=== PATIENT | female | born 1975 ===

== ENCOUNTER 2022-08-20 09:58 | Emergency (ER) | payer MEDICAID, SELFPAY ==
[2022-08-20 10:02] VITALS: BP 126/55; PULSE 75; RESP 18; TEMP 36.7; O2SAT 99; BMI 38.5
--- NOTE | 2022-08-20 10:24 | ED.GENADULT ---
HPI - General Adult General Chief complaint: General Medical Stated complaint: r elbow and l leg pain no inj Time Seen by Provider: 08/20/22 10:23 Source: patient and bilingual interpreter Mode of arrival: ambulatory Limitations: language barrier History of Present Illness HPI narrative: Patient is a 46 year old assigned female at with no reported medical history presenting to the emergency department today with right elbow and left knee pain. Patient states that her right elbow hurts when she has it flexed but when she stretches it out, the pain relieves itself. Patient states that her left knee feels fine when she wakes up but hurts as the day goes on. Patient states that the pain has been persistent this last week since she was in a processional. Patient denies any dizziness, lightheadedness, abdominal pain, nausea, vomiting, fever, chills, blurry vision, double vision, loss of vision, chest pain, difficulty breathing, shortness of breath, back pain, night sweats, pain with urination, increased urinary frequency, increased urinary urgency, blood in her urine or stool, syncope or a near syncopal episode, recent trauma or falls, bowel incontinence, bladder incontinence, bowel retention, bladder retention, or any other complaints at this time. Onset (ago): week(s) (1) Location: left (knee) and right (elbow) Radiation: non-radiation Severity: mild Severity scale (1-10): 3 Exacerbating factors: none Associated symptoms: denies other symptoms Treatments prior to arrival: none Related Data Previous Rx's Medication Instructions Recorded prednisone 20 mg tablet 20 mg PO DAILY 7 days #7 tabs 08/20/22 Allergies Allergy/AdvReac Type Severity Reaction Status Date / Time Penicillins [PCN] AdvReac Rash Verified 08/20/22 10:04 Review of Systems Constitutional: Constitutional: Reports no additional constitutional complaints, Denies chills, Denies fever(s) and Denies night sweats Eyes: Eyes: Reports no additional eye complaints, Denies blurry vision, Denies change in vision, Denies diplopia, Denies eye discharge, Denies loss of vision and Denies eye pain ENT: Denies dizziness Cardiovascular: Cardiovascular: Reports no additional cardiovascular complaints, Denies chest pain, Denies lightheadedness, Denies Loss of Consciousness and Denies dyspnea Respiratory: Respiratory: Reports no additional respiratory complaints and Denies dyspnea Gastrointestinal: Gastrointestinal: Reports no additional gastrointestinal complaints, Denies abdominal pain, Denies melena, Denies hematochezia, Denies change in bowel habits and Denies change in stool character Genitourinary: Genitourinary: Denies hematuria, Denies urinary frequency, Denies dysuria, Denies urinary incontinence, Denies urinary hesitancy and Denies urinary urgency Musculoskeletal: Musculoskeletal: Reports no additional musculoskeletal complaints, Denies numbness and Denies tingling Comments: right elbow pain, left knee pain Neurologic: Denies dizziness, Denies loss of vision, Denies numbness and Denies tingling Psychiatric: Psychiatric: Reports no additional psychiatric complaints Endocrine: Endocrine: Reports no additional endocrine complaints Hematologic/Lymphatic: Hematologic/Lymphatic: Reports no additional hematologic/lymphatic complaints Allergic/Immunologic: Allergic/Immunologic: Reports no additional allergic/immunologic complaints PMFSH Past Medical History Attestation statement: The following information was validated with the patient. Source: old records reviewed and nursing notes reviewed Social History Social History Advance Directives: No Advance Directives Information Provided: No Physical Exam ED Vital Signs: Vital Signs - 24 hr 08/20/22 10:02 Temperature 98.0 F Pulse Rate 75 Respiratory Rate 18 Blood Pressure 126/55 L Pulse Oximetry 99 Oxygen Delivery Method Room Air BMI result Body Mass Index 38.5 Const General: cooperative, no acute distress, alert and awake Nutritional Appearance: well nourished Orientation/consciousness: patient oriented x3 Limitations: no limitations HENMT Head: Yes normal to inspection and Yes atraumatic Ears: hearing grossly normal bilaterally and external ears normal General nose exam: Normal external nose present, no nasal discharge noted and no epistaxis Face and sinus: Yes normal facial exam, No abrasion and No laceration Mouth: Normal oral and palatal mucosa present, no drooling and no muffled voice Eyes General: appearance normal, both eyes and all related structures Periorbital: periorbital findings normal Eyelids: Yes eyelids normal Conjunctivae: conjunctivae normal Pupils: Equal, round and reactive pupils present EOM: EOMs intact bilaterally Neck Neck: Yes normal visual inspection, Yes full ROM and Yes no lymphadenopathy Chest Chest palpation & inspection: normal inspection of the chest Resp Effort & Inspection: normal respiratory effort and able to speak in complete sentences GI Inspection: Yes normal to inspection Neuro General: patient oriented x3 and moves all extremities Cranial nerves: Yes Equal, round and reactive pupils present Cognition (Neuro): normal cognition Motor exam (neuro): 5/5 motor strength present throughout Sensory Exam: Normal double simultaneous stimulation for sensation Coordination: [id number] test normal Extrem General: Yes normal to inspection, Yes full ROM and Yes capillary refill normal Psych Appearance: grossly normal Mental Status: mental status grossly normal Affect: normal affect Attitude: cooperative Thought process: Normal thought process present Thought content: Normal thought content present Insight: Good insight present (Psych) Medical Decision Making Medical Decision Making MDM Narrative: Patient is a 46 year old assigned female at with no reported medical history presenting to the emergency department today with right elbow pain and left knee pain. Patient's physical exam was unremarkable. I explained my physical exam findings to the patient. I answered all questions asked by the patient. Patient received IM Toradol and IM Solu-medrol which she stated helped her symptoms significantly. I stressed the importance of the patient taking her medication as prescribed. I stressed the importance of the patient following up with her primary care provider and if pain persists >2 weeks, an orthopedic provider. I stressed the importance of the patient returning to the emergency department immediately if her symptoms were to worsen or if she were to develop any dizziness, shortness of breath, difficulty breathing, chest pain, blurry vision, loss of vision, nausea, vomiting, abdominal pain, fever, chills, back pain, or any other complaints. Patient verbalized agreement and understanding with this treatment plan and discharge. Differential Diagnosis Differential Diagnoses: The differential diagnosis associated with the presentation includes cubital tunnel syndrome, knee arthritis Discharge Plan Discharge Clinical Impression: Cubital tunnel syndrome, Arthritis Patient Disposition: Home, Self-Care Instructions: Osteoarthritis (ED), Cubital Tunnel Syndrome (ED) Additional Instructions: Follow up with your primary care provider and if the pain persists, follow up with an orthopedic provider. Return to the emergency department immediately if your symptoms worsen or if you develop any dizziness, shortness of breath, difficulty breathing, chest pain, blurry vision, loss of vision, nausea, vomiting, abdominal pain, fever, chills, back pain, or any other complaints. Laisha un seguimiento con jang proveedor de atenci?n primaria y, si el dolor persiste, laisha un seguimiento con un proveedor ortop?dico. Regrese al departamento de emergencias de inmediato si azul s?ntomas empeoran o si presenta mareos, falta de aire, dificultad para respirar, dolor de pecho, visi?n borrosa, p?rdida de la visi?n, n?useas, v?mitos, dolor abdominal, fiebre, escalofr?os, dolor de espalda o cualquier otras quejas. Prescriptions: New prednisone 20 mg tablet 20 mg PO DAILY 7 Days Qty: 7 0RF Referrals: [facility] [place] [Provider Group] (Call to establish and follow up with a primary care provider. If you already have a primary care provider, please follow up with them. Llame para establecer y hacer un seguimiento con un proveedor de atenci?n primaria. Si ya tiene un proveedor de atenci?n primaria, laisha un seguimiento con ?l.) [facility] [place] [Provider Group] (Call to establish and follow up with a primary care provider. If you already have a primary care provider, please follow up with them. Llame para establecer y hacer un seguimiento con un proveedor de atenci?n primaria. Si ya tiene un proveedor de atenci?n primaria, laisha un seguimiento con ?l.) [facility] [place] [Provider Group] (Call to establish and follow up with a primary care provider. If you already have a primary care provider, please follow up with them. Llame para establecer y hacer un seguimiento con un proveedor de atenci?n primaria. Si ya tiene un proveedor de atenci?n primaria, laisha un seguimiento con ?l.) [facility] [Provider Group] (If pain persists >2 weeks, call to establish and follow up with an orthopedic provider. Si el dolor persiste por m?s de 2 semanas, llame para establecer y hacer un seguimiento con un proveedor ortop?dico.) Print Language: Mohawk
[2022-08-20] MEDS: Ketorolac Tromethamine 15 MG/ML VIAL IM (11:32)
[2022-08-20] MEDS: methylPREDNISolone Sod Succ 125 MG/2 ML VIAL 60 MG IM (11:33)
== END 2022-08-20 11:45 | disposition home or self-care (01) ==
PROVIDERS: Emergency Provider Emergency Medicine
DX: G56.21 Lesion of ulnar nerve, right upper limb (principal); M19.031 Primary osteoarthritis, right wrist; Z79.899 Other long term (current) drug therapy
CPT/HCPCS: 96372; 99283; 99284; J1885; J2930

== ENCOUNTER 2022-10-12 09:20 | Outpatient (REF) | payer OTHER, SELFPAY ==
--- NOTE | ~2022-10-12 | XR_ITS ---
EXAMINATION: XR KNEE, LEFT CLINICAL INFORMATION: Pain in left knee COMPARISON: None available. TECHNIQUE: Four views of the left knee. FINDINGS: Bones and soft tissues are normal. No fracture or joint effusion. Alignment is anatomic. Joint spaces are well maintained. No abnormal soft tissue calcification. XR/XR knee LT 3V IMPRESSION: Normal left knee.
--- NOTE | ~2022-10-12 | XR_ITS ---
EXAMINATION: XR ELBOW, RIGHT CLINICAL INFORMATION: Pain in the right elbow COMPARISON: None available. TECHNIQUE: AP, lateral, and oblique views of the right elbow. FINDINGS: The bones and soft tissues are normal. No fracture or joint effusion. Alignment is anatomic. Joint spaces are maintained. XR/XR elbow RT min 3V IMPRESSION: Normal right elbow.
[2022-10-12 09:38] LABS: MANUAL DIFF FLAG NO
[2022-10-12 09:50] LABS: Basophils Percent Auto 0.1 % (0-2); Eosinophils Absolute Auto 0.1 X10*3/uL (0.0-0.4); Eosinophils Percent Auto 1.8 % (0-4); Hematocrit 36.8 % (37.0-47.0); Hemoglobin 12.6 g/dl (12.0-16.0); Imm Gran Abs Auto 0.03 X10*3/uL (0.00-0.03); Imm Gran Pct Auto 0.4 % (0.0-0.4); Lymphocytes Absolute Auto 2.5 X10*3/uL (1.2-4.9); Lymphocytes Percent Auto 34.2 % (20-40); Mean Corpuscular HGB Conc 34.2 g/dl (31.0-35.0); Mean Corpuscular Hemoglobin 29.9 pg (27.0-33.0); Mean Corpuscular Volume 87.4 fL (80.0-98.0); Mean Platelet Volume 9.1 fL (9.4-12.3); Monocytes Absolute Auto 0.5 X10*3/uL (0.1-1.2); Monocytes Percent Auto 6.8 % (2-11); Neutrophils Absolute Auto 4.2 x10*3/uL (2.0-8.3); Neutrophils Percent Auto 56.7 % (45-73); Platelet Count 278 X10*3/uL (160-400); Red Blood Count 4.21 X10*6/uL (4.20-5.50); Red Cell Distribution Width 12.2 % (11.0-16.0); White Blood Count 7.3 X10*3/uL (4.8-10.8)
[2022-10-12 10:19] LABS: Alanine Aminotransferase 70 U/L (0-31); Alkaline Phosphatase 58 U/L (39-117); Anion Gap 13 (12-20); Aspartate Amino Transferase 34 U/L (5-31); Bilirubin Total 0.4 mg/dL (0.0-1.0); Blood Urea Nitrogen 11 mg/dL (9-16); Calcium 9.3 mg/dL (8.4-10.2); Carbon Dioxide 25 mmol/L (22-29); Chloride 106 mmol/L (96-108); Cholesterol 214 mg/dL; Estimated Glomerular Filt Rate > 60; Glucose Fasting 97 mg/dL (60-99); HDL Cholesterol 47 mg/dL; LDL Cholesterol Calculated 119 mg/dl; Potassium 4.1 mmol/L (3.3-5.1); Sodium 140 mmol/L (135-145); Triglycerides 240 mg/dL
[2022-10-12 10:49] LABS: Folate 16.1 ng/mL (> or = 4.0); TSH reflex Free T4 2.48 uIU/mL (0.32-4.0); Vitamin B12 547 pg/mL (200-900); Vitamin D 25-OH Total 16.7 ng/mL (>30)
== END 2022-10-12 09:21 | disposition home or self-care (01) ==
LOC: HO.XRAY 09:20
PROVIDERS: PCP Nurse Practitioner Family; Visit Provider Nurse Practitioner Family
DX: M25.562 Pain in left knee (principal); M25.521 Pain in right elbow; Z76.89 Persons encountering health services in other specified circumstances
CPT/HCPCS: 36415; 73080; 73562; 80053; 80061; 82306; 82607; 82746; 84443; 85025

== ENCOUNTER → 2022-11-07 13:26 | Outpatient (BNVA) | payer OTHER, SELFPAY | PROVIDERS: PCP Nurse Practitioner Family; Visit Provider Internal Medicine | DX: R13.10 Dysphagia, unspecified (principal); R79.89 Other specified abnormal findings of blood chemistry | CPT/HCPCS: 99202 ==

== ENCOUNTER 2022-11-08 | Outpatient (REF) | payer OTHER, SELFPAY ==
--- NOTE | ~2022-11-08 | US_ITS ---
EXAMINATION: US ABDOMEN LIMITED CLINICAL INFORMATION: Other specified abnormal findings of blood chemistry. COMPARISON: None available. TECHNIQUE: Real-time imaging of the right upper quadrant abdominal viscera. FINDINGS: PANCREAS: Limited visualization. LIVER: The liver is normal in size. The liver contour is normal. There is diffuse increased liver parenchymal echogenicity, consistent with hepatic steatosis. No definite focal lesion is seen, but evaluation is limited due to poor sound beam penetration through the coarse echogenic liver parenchyma. There is no intrahepatic biliary duct dilatation seen. GALLBLADDER: Surgically absent. COMMON BILE DUCT: Normal in caliber measuring 0.7 cm in diameter. RIGHT KIDNEY: Midpole cyst measures 0.8 x 0.7 x 0.8 cm. No hydronephrosis or renal calculi. The kidney measures 10.9 cm in maximum dimension. FREE FLUID: None. US/US abdomen limited IMPRESSION: Hepatic steatosis. Right renal cyst. No suspicious features.
[2022-11-08 10:14] LABS: Iron 69 mcg/dL (30-160); Percent Iron Saturation 26 % (15-50); Total Iron Binding Capacity 264 mcg/dL (228-428); Unsaturated Iron Binding 195 ug/dL
[2022-11-08 10:20] LABS: Ferritin 113 ng/mL (10-250); TSH reflex Free T4 2.17 uIU/mL (0.32-4.0)
[2022-11-09 04:01] LABS: HBc Num1 0.06 S/CO (0.00-0.79); HBsAGNum1 0.55 S/CO (0.00-0.99); Hepatitis A Antibody IgM 0.17 Index (0-0.79); Hepatitis B Core Antibody Nonreactive (Nonreactive); Hepatitis B Surface Antigen Negative (Negative); ~HepC Num1 0.12 S/CO (0.00-0.79); ~Hepatitis A Antibody IgM Nonreactive (Nonreactive); ~Hepatitis B Surface Antibody NONREACTIVE (Nonreactive); ~Hepatitis C Antibody Nonreactive (Nonreactive)
[2022-11-12 14:58] LABS: Anti Nuclear Antibody Screen NEGATIVE (NEGATIVE)
[2022-11-12 15:04] LABS: Immunoglobulin A 265 mg/dL (47-310); Immunoglobulin G 1133 mg/dL (600-1640)
[2022-11-13 13:59] LABS: Liver Kidney Microsomal Ab <=20.0 U (<=20.0); Smooth Muscle Antibody <20 U (<20)
[2022-11-19 07:48] LABS: Transglutaminase IgA <1.0 U/mL
== END 2022-11-08 00:01 | disposition home or self-care (01) ==
LOC: HO.US
PROVIDERS: Internal Medicine; Visit Provider Nurse Practitioner Family
DX: R79.89 Other specified abnormal findings of blood chemistry (principal)
CPT/HCPCS: 36415; 76705; 82728; 82784; 83540; 84443; 86015; 86038; 86364; 86376; 86704; 86706; 86709; 86803; 87340

== ENCOUNTER 2022-11-09 12:38 | Outpatient (REF) | payer OTHER, SELFPAY ==
--- NOTE | ~2022-11-09 | MM_ITS ---
EXAMINATION: MM SCREENING DIGITAL BREAST TOMOSYNTHESIS, BILATERAL CLINICAL INFORMATION: Screening. Asymptomatic. The lifetime risk of breast cancer based on the Tyrer-Cuzick Model is 34.4%. COMPARISON: Mammography: There are no prior studies available for comparison. TECHNIQUE: Digital breast tomosynthesis is performed in both the craniocaudal and mediolateral oblique views along with computer-aided detection (CAD). Synthesized 2D images are generated from the tomosynthesis. FINDINGS: There are scattered areas of fibroglandular density (ACR BI-RADS breast composition Category b). There are no significant masses, abnormal calcifications, or other abnormalities. MM/MM tomosynthesis screening BI IMPRESSION: No mammographic evidence of malignancy. The lifetime risk of breast cancer based on the Tyrer-Cuzick Model is 34.4%. This places the patient at high risk for developing breast cancer over her lifetime. The patient has not already had been annual breast MRI as an adjunct to annual mammographic screening, then this recommended. ASSESSMENT: BI-RADS BI-RADS 1 - Negative RECOMMENDATION: Routine annual mammography screening. 1 year F/U This patient's information was entered into a reminder system with a target due date for their next mammogram.
== END 2022-11-09 12:39 | disposition home or self-care (01) ==
LOC: HO.MAMMO 12:38
PROVIDERS: PCP Nurse Practitioner Family; Visit Provider Nurse Practitioner Family
DX: Z12.31 Encounter for screening mammogram for malignant neoplasm of breast (principal)
CPT/HCPCS: 77063; 77067

== ENCOUNTER → 2022-11-09 12:45 | Outpatient (BNV) | payer OTHER, SELFPAY | PROVIDERS: PCP Nurse Practitioner Family; Visit Provider Radiology Diagnostic Radiology | DX: Z12.31 Encounter for screening mammogram for malignant neoplasm of breast (principal) | CPT/HCPCS: 77063; 77067 ==

== ENCOUNTER 2022-11-20 08:05 | Outpatient (REF) | payer OTHER, SELFPAY ==
--- NOTE | ~2022-11-20 | XR_ITS ---
EXAMINATION: XR ELBOW, RIGHT CLINICAL INFORMATION: Pain in right elbow COMPARISON: 10/12/2022 TECHNIQUE: AP, lateral, and oblique views of the right elbow. FINDINGS: The bones and soft tissues are normal. No fracture or joint effusion. Alignment is anatomic. Joint spaces are maintained. XR/XR elbow RT 2V IMPRESSION: No displaced fracture.
== END 2022-11-20 08:06 | disposition home or self-care (01) ==
LOC: HO.HOSX 08:05
PROVIDERS: Visit Provider Orthopaedic Surgery
DX: M77.11 Lateral epicondylitis, right elbow (principal); Z79.899 Other long term (current) drug therapy
CPT/HCPCS: 73070; 99202

== ENCOUNTER 2022-11-20 15:04 | Outpatient (AMB) | payer OTHER, SELFPAY ==
--- NOTE | 2022-11-20 15:16 | MHC.OFFVIS ---
Intake Vital Signs 11/20/22 15:17 Height 5 ft 1 in Weight 202 lb BMI 38.2 Intake Visit Reasons: New Pt - Right Elbow Pain Intake Note: The patient presents with complaints of intermittent pain along the lateral aspect of her right elbow and forearm. She states that her symptoms have been present for approximately 1 year. She recently started formal physical therapy. She has tried ibuprofen which gives her minimal relief. She denies any numbness or tingling in her fingers. She recently moved here from [place]. Allergies Penicillins [PCN] Adverse Reaction (Verified 11/20/22 17:03) Rash Medication List - Last Reconciled 11/20/22 by Josue Valderrama MD cholecalciferol (vitamin D3) 50 mcg PO DAILY ibuprofen 600 mg PO Q8H PRN meloxicam 15 mg PO DAILY PRN omeprazole 20 mg PO DAILY peg 3350-electrolytes 236-22.74-6.74 -5.86 gram (Golytely) 240 mL PO Q10M PFSH Surgical History H/O breast surgery History of cholecystectomy Family History Mother Fibromyalgia Hypothyroidism Father Prostate cancer Hypertension Hypothyroidism Social History Housing: House Patient Tobacco Use Status: Never used Tobacco Advance Directives: No Advance Directives Information Provided: No Current occupational status: unemployed Cognitive needs: No Hearing needs: No Vision needs: No Physical Exam Vital Signs: BMI result Body Mass Index 38.2 Const Other: Well-nourished well-developed very friendly female awake alert and oriented x3 in no acute distress Extrem Other: Bilateral upper extremity examination shows good capillary refill, no skin lesions noted, normal sensation light touch Right elbow examination shows full range of motion when compared to her left elbow, no overlying skin lesions, tenderness along her lateral epicondyle, pain with resisted wrist extension Results Reviewed Results Reviewed: X-rays of the patient's right elbow taken today show minimal diffuse degenerative changes, no acute bony abnormalities Assessment & Plan Assessment & Plan (1) Lateral epicondylitis, right elbow: Code(s): M77.11 - Lateral epicondylitis, right elbow Plan: Ms. Vivek Pearce presents with right elbow and forearm pain due to lateral epicondylitis. I had a lengthy discussion with the patient regarding the treatment options. Activity modifications were discussed at length with the patient. She is encouraged to continue with her formal physical therapy. She will also continue using topical creams. I did give her a prescription for meloxicam. She will follow up with me on an as-needed basis should her symptoms not plateau at an unacceptable level over the next few months. Feel free to call me at any time should questions regarding her orthopedic management arise. I spent 22 minutes in reviewing the patient's records and imaging studies, seeing the patient and documenting in the medical record. Orders: Orders XR elbow RT 2V 11/20/22 M25.521 - Pain in right elbow Medications: New meloxicam 15 mg PO DAILY PRN 30 tabs 3RF pain Coding Level of Care Code New Pt Level 2 (63337) Diagnoses Lateral epicondylitis, right elbow M77.11
[2022-11-20 15:17] VITALS: BMI 38.2
== END 2022-11-20 15:54 | disposition home or self-care (01) ==
PROVIDERS: PCP Nurse Practitioner Family; Visit Provider Orthopaedic Surgery
DX: M77.11 Lateral epicondylitis, right elbow (principal)
CPT/HCPCS: 99202

== ENCOUNTER 2022-11-20 16:46 | Emergency (ER) | payer OTHER, SELFPAY ==
--- NOTE | 2022-11-20 17:02 | ED.GENADULT ---
HPI - General Adult General Chief complaint: General Medical Stated complaint: High blood Pressure Related Data Previous Rx's Medication Instructions Recorded cholecalciferol (vitamin D3) 50 50 mcg PO DAILY #90 tabs 10/25/22 mcg (2,000 unit) tablet famotidine 40 mg tablet 40 mg PO BEDTIME #90 tabs 04/09/23 hydrocortisone 2.5 % topical cream 1 appl [place] BID-QID PRN hemorrhoids 04/09/23 with perineal applicator #30 grams (Proctosol HC) pantoprazole 40 mg tablet,delayed 40 mg PO DAILY #90 tabs 04/09/23 release Allergies Allergy/AdvReac Type Severity Reaction Status Date / Time Penicillins [PCN] AdvReac Rash Verified 05/30/23 14:56 PMFSH Past Medical History Medical History PMB (postmenopausal bleeding) Morbid obesity with BMI of 40.0-44.9, adult Encounter to establish care Surgical History H/O breast surgery History of cholecystectomy Family History Family History Mother Fibromyalgia Hypothyroidism Father Prostate cancer Hypertension Hypothyroidism Paternal Grandmother History of breast cancer Social History Social History Housing: House Patient Tobacco Use Status: Never used Tobacco Current occupational status: unemployed Cognitive needs: No Hearing needs: No Vision needs: No Physical Exam ED Vital Signs: BMI result Body Mass Index 36.9 Course Course Course Narrative: This is an RME: Additional HPI, ROS, PE not included below will be deferred to primary provider. Patient is a 47-year-old female with a past medical history of obesity and lateral epicondylitis to the right elbow. Patient presents for a blood pressure check. Patient reports having headache for 2 days. Patient reported that she took her blood pressure at home and her diastolic pressure was in the high 90s so she decided to come in to get checked. Patient is not currently on blood pressure medications however she reports taking 1 of her sister's blood pressure medicine. Patient does not know the name of this medication. patient denies fever, chills, night sweats, nausea, vomiting, vision changes, numbness, tingling, chest pain, shortness of breath. Patient denies any pain. Plan: EKG Discharge Plan Discharge Clinical Impression: Eloped from emergency department Patient Disposition: Elopement Prescriptions: No Action cholecalciferol (vitamin D3) 50 mcg (2,000 unit) tablet 50 mcg PO DAILY Qty: 90 0RF pantoprazole 40 mg tablet,delayed release (DR/EC) 40 mg PO DAILY Qty: 90 2RF Rx Instructions: take one tablet half an hour before breakfast hydrocortisone [Proctosol HC] 2.5 % cream with perineal applicator 1 appl [place] BID-QID PRN (Reason: hemorrhoids) Qty: 30 2RF famotidine 40 mg tablet 40 mg PO BEDTIME Qty: 90 3RF Discharge Date/Time: 11/20/22 18:14
[2022-11-20 17:03] VITALS: BP 139/93; PULSE 77; RESP 19; TEMP 36.6; O2SAT 97; BMI 36.9
--- NOTE | 2022-11-20 17:33 | MHC.EDTECH ---
CALLED PATIENT FOR EKG AND PATIENT DID NOT ANSWER
== END 2022-11-20 18:14 | disposition left against medical advice (07) ==
PROVIDERS: Emergency Provider Emergency Medicine
DX: I10 Essential (primary) hypertension (principal); R51.9 Headache, unspecified
CPT/HCPCS: 99281

== ENCOUNTER 2022-12-03 08:30 | Outpatient (RCR) | payer OTHER, SELFPAY ==
--- NOTE | 2022-11-15 14:26 | MHC.OT.EP ---
[address] [phone] Occupational Therapy Plan of Care Patient Name: Audrey Pearce Date of Evaluation: 11/15/22 Diagnosis: Right elbow pain Pain Location: Constant pain in right lateral elbow, radiates down to forearm Tender to palpate lateral epicondyle Pain Score: 9 Pain Scale Used: Numeric (0 - 10) Aggravating Factors: Lifting, gripping, walking Alleviating Factors: Self massage w/ cream, ibuprophen Assessment: 47 yo female presents w/ right elbow pain for the past year, worsening with activity and use. She was seen in the ED, x-ray (-) for acute changes. Pt recently moved from [place] and now lives w/ her sister and teenage son. She has not been working, but reports Ind w/ all activities at home, enjoys walking, although she has had increased pain w/ all daily activities and unable to walk long distances. She also reports pain w/ sleeping and prolonged bend of elbow. On assessment, pain is localized to right lateral elbow and radiates to dorsal forearm. Signs and symptoms are consistent w/ lateral epicondylitis and I anticipate she will do well w/ course of therapy to progress strength and focus on activity modification and joint protection for optimal functional gains. Frequency and Duration: The patient will be seen 2x/wk for 4 weeks Short Term Goals: Ind w/ sleep modifications, reporting relief Ind w/ HEP Ind w/ joint protection techniques 5/10 resting pain Progress to strengthening phase Gas Flow Regulator Goals: Pt to report good follow through w/ activity modifications on daily basis Ind w/ progression of strengthening routine Right gross grasp >35lb Pain free elbow at rest <3/10 w/ moderate daily activities (laundry, cooking, etc) Treatment Plan: Therapeutic Exercise Therapeutic Activity Home Exercise Program Splinting Patient Education ADL Training Ultrasound Iontophoresis MHP Cold Packs Soft Tissue Mobilization Kinesiotaping Nighttime orthosis PRN Electronically Signed By: HANS Judd/Andres CHT Please Sign and return to therapist. Thank you once again for your referral.
--- NOTE | 2023-01-04 11:26 | MHC.OT.DC ---
[address] [phone] F: [phone] Occupational Therapy Discharge Note Patient Name: Audrey Pearce Provider: Lila Sevilla Diagnosis: Right elbow pain Date of Evaluation: 11/15/22 Date of Discharge: 01/04/23 Treatments to Date: 5 Cancellations to Date: No Shows to Date: Discharge Status: Independent with HEP Patient Elected to Stop Discharge Summary: Audrey was referred to OT for management of right elbow pain, consistent w/ lateral epicondylitis. She was seen for brief course of occupational therapy prior to going on vacation and has not follow up for further visits. At last visit she cont'd to have moderate pain in elbow/dorsal forearm and needed reminders to wear counter force brace w/ activities, but has good follow through w/ HEP and understanding of activity modifications. We will be discharging therapy services at this time. Electronically Signed By: HANS Judd/Andres TAVAREZT Reviewed/agree with student documentation: Therapist: Please Sign and return to therapist, thank you for your referral.
== END 2023-01-04 11:27 | disposition home or self-care (01) ==
LOC: HO.OT 08:30
PROVIDERS: PCP Nurse Practitioner Family; Visit Provider Nurse Practitioner Family
DX: M25.512 Pain in left shoulder (principal)
CPT/HCPCS: 97033; 97110; 97140; 97165

== ENCOUNTER 2022-12-17 07:58 | Outpatient (REF) | payer OTHER, SELFPAY ==
--- NOTE | ~2022-12-17 | FL_ITS ---
EXAMINATION: FL BARIUM SWALLOW CLINICAL INFORMATION: Dysphagia COMPARISON: None available. TECHNIQUE: Barium swallow examination is performed using fluoroscopic evaluation in addition to multiple fluoroscopic spot views. The patient is imaged both upright and prone and using both thick and thin sulfate along with effervescent granules. Barium tablet was also administered Fluoroscopy time: 1 minutes DAP: 5.8 Gycm2 Images: 51 FINDINGS: The swallowing mechanism is normal. No aspiration or penetration. Esophageal motility is normal. There is a small sliding-type hiatal hernia. There is mild gastroesophageal reflux. No mass or stricture is seen. Barium tablet passed freely into the stomach. FL/FL barium swallow IMPRESSION: Gastroesophageal reflux and small sliding-type hiatal hernia.
== END 2022-12-17 07:59 | disposition home or self-care (01) ==
LOC: HO.XRAY 07:58
PROVIDERS: Visit Provider Internal Medicine
DX: R13.10 Dysphagia, unspecified (principal)
CPT/HCPCS: 74220

== ENCOUNTER → 2022-12-17 07:59 | Outpatient (BNV) | payer OTHER, SELFPAY | PROVIDERS: Visit Provider Radiology Diagnostic Radiology | DX: R13.10 Dysphagia, unspecified (principal) | CPT/HCPCS: 74221 ==

== ENCOUNTER 2022-12-21 10:08 | Outpatient (REF) | payer OTHER, SELFPAY ==
[2022-12-21 11:50] LABS: Vitamin D 25-OH Total 23.4 ng/mL (>30)
[2022-12-24 20:58] LABS: TS Negative Control Passed; TS Panel A 2; TS Panel B 3; TS Positive Control Passed; TSpotTB Negative (Negative)
== END 2022-12-21 10:09 | disposition home or self-care (01) ==
LOC: HO.LAB 10:08
PROVIDERS: PCP Nurse Practitioner Family; Visit Provider Nurse Practitioner Family
DX: Z11.1 Encounter for screening for respiratory tuberculosis (principal); E55.9 Vitamin D deficiency, unspecified
CPT/HCPCS: 36415; 82306; 86481

== ENCOUNTER 2023-01-01 13:03 | Outpatient (AMB) | payer OTHER, SELFPAY ==
--- NOTE | 2023-01-01 13:12 | MHC.OFFVIS ---
Intake Intake Visit Reasons: Cyst of kidney Intake Note: New Patient presents for initial visit cyst of kidney Urology Medications: none Blood Thinner: none Computer Technologist Required: Yes Computer Technologist Name: Lisseth Accompanied by: Self / Same As Patient Allergies Penicillins [PCN] Adverse Reaction (Verified 01/01/23 21:42) Rash Medication List - Last Reconciled 01/01/23 by ERICKA Hou- cholecalciferol (vitamin D3) 50 mcg PO DAILY ibuprofen 600 mg PO Q8H PRN meloxicam 15 mg PO DAILY PRN nitrofurantoin macrocrystal 100 mg PO BID 7 days omeprazole 20 mg PO DAILY peg 3350-electrolytes 236-22.74-6.74 -5.86 gram (Golytely) 240 mL PO Q10M HPI HPI Comments History of Present Illness Details Rachel Is a very pleasant 47-year-old Sri Lankan-speaking female patient of Dr. Sevilla. She presents to the office today as a new patient for right renal cyst. In discussion with the patient today she reports to be doing and feeling well. She reports recently moving here from [place] at which time she reports having follow-up with PCP and right renal cyst noted on most recent abdominal ultrasound. When asked she denies previously following up with Urology in the past. She does however report following up with master of ceremonies in [place] for abnormal bleeding. She reports having been menopausal for over 15 months however more recently within the last 3-5 months has noted irregular vaginal bleeding. When asked she does report dysuria and vaginal itching however she denies urinary urgency, urinary frequency, incontinence, nocturia, hematuria, dysuria, foul smelling urine, changes to urinary stream, flank pain, fever, and or chills. She is happy with her current voiding parameters. Recent abdominal ultrasound results reviewed with the patient today. right kidney with mid pole cyst measuring 0.8 x 0.7 x 0.8 cm. No hydronephrosis or calculi seen. No suspicious features per radiology report. Discussed at length potential causes for renal cyst. In office urinalysis results reviewed with the patient today. Discussed sending for urine culture as patient reporting dysuria and patient noted with 3+ leukocytes negative nitrates. she otherwise offers no issues or concerns at this time. She discusses also taking care of her son who has multiple appointments regarding his lymphoma. [facility] Surgical History H/O breast surgery History of cholecystectomy Family History Mother Fibromyalgia Hypothyroidism Father Prostate cancer Hypertension Hypothyroidism Social History Housing: House Patient Tobacco Use Status: Never used Tobacco Current occupational status: unemployed Cognitive needs: No Hearing needs: No Vision needs: No Review of Systems Const All systems reviewed & are unremarkable except as noted in HPI and below Reports as per HPI Eyes Reports no additional complaints ENT Reports no additional complaints Card Reports no additional complaints Resp Reports no additional complaints GI Reports no additional complaints Reports as per HPI Musc Details: patient reports having been told in [place] that she has arthritis. Neuro Reports no additional complaints Psych Reports no additional complaints Endo Reports no additional complaints Isidro/Lymph Reports no additional complaints Aller/Immun Reports no additional complaints Physical Exam Const General: cooperative, healthy appearing, comfortable, no acute distress, well developed, alert and awake Orientation/consciousness: patient oriented x3 Limitations: no limitations HEENT Head: Yes normal to inspection, Yes normocephalic and Yes atraumatic Ears: hearing grossly normal bilaterally Eyes General: appearance normal, both eyes and all related structures Neck Neck: Yes normal visual inspection and Yes trachea midline Chest Chest palpation & inspection: normal inspection of the chest Resp Effort & Inspection: normal respiratory effort and able to speak in complete sentences Cardio Rate: regular rate GI Inspection: Yes normal to inspection General: Yes no CVA tenderness Back/Spine/Pelvis Back: no CVA tenderness Skin General skin exam: no rashes or lesions noted Neuro General: patient oriented x3 Extrem General: Yes normal to inspection Psych Appearance: grossly normal and well kempt Mental Status: mental status grossly normal Speech and movement: Normal speech and movement present and Clear speech present Affect: normal affect Attitude: cooperative Thought process: Normal thought process present Thought content: Normal thought content present Insight: Good insight present (Psych) Judgement: Good judgement present (Psych) Results AMB Urinalysis, Automated UA Leukoctes 500 Babita/uL Last Edit by Eren Suarez on 01/01/23 13:21 UA Nitrite Negative Last Edit by Eren Suarez on 01/01/23 13:21 UA Urobilinogen 0.2 mg/dL Last Edit by Eren Suarez on 01/01/23 13:21 UA Protein 0 mg/dL Last Edit by Eren Suarez on 01/01/23 13:21 UA pH 5.5 Last Edit by Eren Suarez on 01/01/23 13:21 UA Blood 10 Jeffry/uL Last Edit by Eren Suarez on 01/01/23 13:21 UA Specific [place] 1.030 Last Edit by Eren Suarez on 01/01/23 13:21 UA Ketone Negative Last Edit by Eren Suarez on 01/01/23 13:21 UA Bilirubin 0 mg/dL Last Edit by Eren Suarez on 01/01/23 13:21 UA Glucose 0 mg/dL Last Edit by Eren Suarez on 01/01/23 13:21 Results Reviewed Results Reviewed: Laboratory Last Values Urine pH (Auto) 5.5 01/01/23 13:15 Specific [place] (Auto) 1.030 01/01/23 13:15 Urine Protein (Auto) 0 mg/dL 01/01/23 13:15 Glucose (UA)(Auto) 0 mg/dL 01/01/23 13:15 Urine Ketones (Auto) Negative 01/01/23 13:15 Urine Blood (Auto) 10 Jeffry/uL 01/01/23 13:15 Urine Nitrite (Auto) Negative 01/01/23 13:15 Urine Bilirubin (Auto) 0 mg/dL 01/01/23 13:15 Urine Urobilinogen (Auto) 0.2 mg/dL 01/01/23 13:15 Leukocyte Esterase (Auto) 500 Babita/uL 01/01/23 13:15 Date of Service: 11/08/22 EXAMINATION: US ABDOMEN LIMITED CLINICAL INFORMATION: Other specified abnormal findings of blood chemistry. COMPARISON: None available. TECHNIQUE: Real-time imaging of the right upper quadrant abdominal viscera. FINDINGS: PANCREAS: Limited visualization. LIVER:? The liver is normal in size. The liver contour is normal. There is diffuse increased liver parenchymal echogenicity, consistent with hepatic steatosis.? No definite focal lesion is seen, but evaluation is limited due to poor sound beam penetration through the coarse echogenic liver parenchyma. There is no intrahepatic biliary duct dilatation seen. GALLBLADDER: Surgically absent. COMMON BILE DUCT: Normal in caliber measuring 0.7 cm in diameter. RIGHT KIDNEY: Midpole cyst measures 0.8 x 0.7 x 0.8 cm. No hydronephrosis or renal calculi. The kidney measures 10.9 cm in maximum dimension. FREE FLUID: None. IMPRESSION: Hepatic steatosis. Right renal cyst. No suspicious features. Assessment & Plan Assessment & Plan (1) Abnormal vaginal bleeding: Code(s): N93.9 - Abnormal uterine and vaginal bleeding, unspecified (2) UTI (urinary tract infection), uncomplicated: Code(s): N39.0 - Urinary tract infection, site not specified (3) Dysuria: Code(s): R30.0 - Dysuria (4) Vaginal itching: Code(s): N89.8 - Other specified noninflammatory disorders of vagina Plan In office urinalysis results reviewed with the patient today; as noted above; will send for urine culture. Discussed UTI prevention with D mannose supplement, vitamin-C, increasing fluid intake, behavioral therapy with timed voiding, perineal hygiene and postcoital voiding, and management of constipation with stool softeners and increased fiber intake. Discussed at length abnormal vaginal bleeding; will refer to master of ceremonies for further assessment evaluation. Start Macrobid as discussed and prescribed. Discussed and educated on the importance of drinking plenty of water daily. Recent abdominal ultrasound results reviewed with the patient today; as noted above. Discussed at length potential causes for renal cysts Will continue with surveillance monitoring. Follow-up in 3 months with [facility]; or sooner with any issues, concerns, and or questions. Orders: Orders Urine Culture Today N93.9 - Abnormal uterine and vaginal bleeding, unspecified AMB Urinalysis Automated Today Z13.9 - Encounter for screening, unspecified Referrals MAPLE SUGAR MAKER Referral N93.9 - Abnormal uterine and vaginal bleeding, unspecified Medications: New nitrofurantoin macrocrystal must administer with a meal/food 100 mg PO BID 7 days 14 caps 0RF N39.0 - Urinary tract infection, site not specified Patient Instructions: The patient had an opportunity to ask questions regarding the treatment plan. All questions were answered. Physical exam, labs, and imaging were discussed and reviewed in detail. As well as risks, benefits, and discussion of treatment choices. No major barriers to understanding were identified. The patient expressed understanding and agreement with the above treatment plan. The patient was made aware they should contact our office by phone for worsening of their current condition, the appearance of new symptoms, or with any questions or concerns. Compliance is encouraged with any medications and follow up testing that is ordered. It is a privilege to be allowed the opportunity to participate in? your urological care.? Again, if you have any questions or concerns If you have any questions or concerns please do not hesitate to contact me. The office is [phone]. This note is constructed using voice recognition software. While every effort has been made to ensure accuracy health care attorney errors may have been included. Yours sincerely, MARLON Hou Coding Level of Care Code New Pt Level 4 (24075) Diagnoses Abnormal vaginal bleeding N93.9 UTI (urinary tract infection), uncomplicated N39.0 Dysuria R30.0 Vaginal itching N89.8
== END 2023-01-01 13:46 | disposition home or self-care (01) ==
PROVIDERS: Visit Provider Nurse Practitioner Family
DX: N93.9 Abnormal uterine and vaginal bleeding, unspecified (principal); N39.0 Urinary tract infection, site not specified; R30.0 Dysuria; N89.8 Other specified noninflammatory disorders of vagina
CPT/HCPCS: 99204

== ENCOUNTER 2023-01-01 13:03 | Outpatient (REF) | payer OTHER, SELFPAY | END 2023-01-01 13:04 | disposition home or self-care (01) | LOC: HO.LNP 13:03 | PROVIDERS: Visit Provider Nurse Practitioner Family | DX: N93.9 Abnormal uterine and vaginal bleeding, unspecified (principal); N39.0 Urinary tract infection, site not specified; R30.0 Dysuria; N89.8 Other specified noninflammatory disorders of vagina | CPT/HCPCS: 81003; 87086; 99202 ==

== ENCOUNTER 2023-01-11 10:31 | Outpatient (AMB) | payer OTHER, SELFPAY ==
[2023-01-11 10:33] VITALS: BP 132/88; PULSE 72; O2SAT 100; BMI 38.0
--- NOTE | 2023-01-11 10:33 | MHC.PC.OV ---
Vital Signs 01/11/23 10:33 Height 5 ft 2 in Weight 208 lb BMI 38.0 BP 132/88 Blood Pressure Location Lt brachial Position Sitting Pulse 72 Pulse Source Pulse Oximeter Temp Source Skin Pulse Oximetry (%) 100 Oxygen Delivery Method Room Air Intake Visit Reasons: Annual Exam Intake Note: Patient is here today for a physical. Java Application Engineer Required: No Allergies Penicillins [PCN] Adverse Reaction (Verified 01/11/23 10:52) Rash Medication List - Last Reconciled 01/11/23 by ERICKA Noble cholecalciferol (vitamin D3) 50 mcg PO DAILY ibuprofen 600 mg PO Q8H PRN meloxicam 15 mg PO DAILY PRN omeprazole 20 mg PO DAILY peg 3350-electrolytes 236-22.74-6.74 -5.86 gram (Golytely) 240 mL PO Q10M Tobacco use date assessed: 01/11/23 Dental Screening Dental Screen Date: 01/11/23 Did you have a dental visit in the last 12 months?: Yes Did you have a dental problem in the last 6 months where you did not have access to dental care?: No Was dental information given to patient?: Patient has dentist HPI Annual Exam HPI Details Patient is a 47-year-old female who presents today for physical exam. Medical history significant for low vitamin-D level, right renal cyst-followed by Urology, hepatic steatosis, obesity among others. Mammogram normal 10/2022. Patient has referral to GI for a colonoscopy. Patient reports normal Pap smear 1.5 years ago in [place] - patient has an upcoming appointment with gynecology in [place]. Today we discussed patient's need for tetanus vaccine. Patient will call for an eye exam. In addition, patient reports skin tags her body and she would like to be seen by Dermatology. Patient is a Yoruba-speaking and Tori was helping with interpretation. [facility] Medical History (Updated 01/11/23 @ 13:37 by ERICKA Noble) Encounter to establish care Morbid obesity with BMI of 40.0-44.9, adult Surgical History H/O breast surgery History of cholecystectomy Family History Mother Fibromyalgia Hypothyroidism Father Prostate cancer Hypertension Hypothyroidism Social History Housing: House Patient Tobacco Use Status: Never used Tobacco Current occupational status: unemployed Cognitive needs: No Hearing needs: No Vision needs: No Questionnaire PHQ-9 Over the last 2 weeks, how often have you been bothered by any of the following problems? 1. Little interest or pleasure in doing things: not at all 2. Feeling down, depressed, or hopeless: not at all 3. Trouble falling or staying asleep, or sleeping too much: not at all 4. Feeling tired or having little energy: not at all 5. Poor appetite or overeating: not at all 6. Feeling bad about yourself - or that you are a failure or have let yourself or your family down: not at all 7. Trouble concentrating on things, such as reading the newspaper or watching television: not at all 8. Moving or speaking so slowly that other people could have noticed. Or the opposite - being so fidgety or restless that you have been moving around a lot more than usual: not at all 9. Thoughts that you would be better off or of hurting yourself in some way: not at all Total score: 0 Depression Screening Interpretation: Negative 86170 - PHQ-9 Billing: Yes Source: Developed by Drs. Manuelito Triplett, Penny Millan, Segundo Gomes and colleagues, with an educational kenji from [employer]. Thrive Questionnaire Date Thrive assessed: 10/10/22 AUDIT C Alcohol Use Questionnaire (AUDIT-C) 1. How often do you have a drink containing alcohol?: Never 3. How often do you have six or more drinks on one occasion?: Never Total Score: 0 Score Reviewed/Action Taken: No RAMEZ-7 AMB Questionnaire RAMEZ-7 Date RAMEZ - 7 assessed: 01/11/23 Feeling nervous, anxious, or on edge: 0 = Not at all Not being able to stop or control worryin = Not at all Worrying too much about different things: 0 = Not at all Trouble relaxin = Not at all Being so restless that it is hard to sit still: 0 = Not at all Becoming easily annoyed or irritable: 0 = Not at all Feeling afraid as if something awful might happen: 0 = Not at all Total RAMEZ-7 score (0-4 normal; 5-9 mild; 10-14 moderate; 15-21 severe): 0 Source: Developed by Drs. Manuelito Triplett, Penny Millan, Segundo Gomes and colleagues, with an educational kenji from [employer]. RAMEZ-7 Assessment Billing RAMEZ-7 Assessment Tool: RAMEZ-7 Assessment 48742 Review of Systems Const Denies body aches, Denies chills, Denies fever(s) and Denies headache(s) Eyes Denies change in vision ENT Denies dizziness, Denies otalgia, Denies headache(s), Denies nasal discharge, Denies sinus pain and Denies sore throat Card Denies chest pain, Denies edema, Denies lightheadedness and Denies dyspnea Resp Denies cough and Denies dyspnea GI Denies constipation, Denies diarrhea, Denies nausea and Denies vomiting Denies dysuria Musc Denies myalgias and Reports arthralgias Skin/Breast Denies rash Neuro Denies dizziness and Denies headache(s) Physical exam (Primary Care) Vital Signs: Last Vital Signs Pulse 72 01/11/23 10:33 BP 132/88 01/11/23 10:33 Pulse Ox 100 01/11/23 10:33 Oxygen Delivery Method Room Air 01/11/23 10:33 BMI result Body Mass Index 38.0 Tobacco/Smoking Status: Tobacco use Status Tobacco use date assessed 01/11/23 01/11/23 10:34 Patient Tobacco Use Status Never used Tobacco 01/11/23 10:34 PHQ-9: PHQ-9 Score PHQ-9: Total score 0 01/11/23 11:13 Depression Screening Interpretation: Negative Thrive Assessment: Date of Thrive Assessment Date Thrive assessed 10/10/22 01/11/23 10:34 Const General: cooperative and no acute distress Orientation/consciousness: patient oriented x3 HENMT Head: Yes normocephalic and Yes atraumatic Ears: TM's normal bilaterally Face and sinus: Yes sinuses nontender Mouth: oropharynx normal and moist mucous membranes Throat: Yes posterior oropharynx normal Eyes General: appearance normal, both eyes and all related structures Pupils: Equal, round and reactive pupils present EOM: EOMs intact bilaterally Neck Neck: Yes normal visual inspection, Yes full ROM and Yes no lymphadenopathy Thyroid: Thyroid normal Resp Effort & Inspection: normal respiratory effort and able to speak in complete sentences Auscultation: clear to auscultation bilaterally, no crackles, no rales, no rhonchi and no wheezes Cardio Rate: regular rate Rhythm: regular rhythm Heart sounds: S1 normal heart sound present, S2 normal heart sound present and no murmurs GI Palpation (GI): Soft to palpation, not firm, Tenderness to palpation present (GI) suprapubicly (mild), no guarding, not rigid and no hepatosplenomegaly Auscultation: normal bowel sounds General: No CVA tenderness Back/Spine/Pelvis Back: No CVA tenderness Skin Other: Left neck with skin tag Neuro General: patient oriented x3 Cranial nerves: Yes Equal, round and reactive pupils present Gait exam (Neuro): Normal gait present Extrem General: Yes full ROM and No edema Immunizations Boostrix Tdap Performing Provider: ERICKA Noble Administered by: ELIGIO Edgar on 01/11/23 11:13 Dose Route Admin Location Lot Number Expiration Date [facility] [place] Transitions Manager Rn 0.5 mL IM Left Deltoid [id number] 04/17/25 [id number] Visitar VIS Given Date VIS Provided VIS Publication Date 01/11/23 Single Vaccine 20 Eligibility Eligibility Date Funding Source Not [facility] Eligible 01/11/23 Private Assessment and Plan Assessment & Plan (1) Skin tag: Code(s): L91.8 - Other hypertrophic disorders of the skin Plan: Dermatology referral for an evaluation and treatment (2) Adult general medical exam: Code(s): Z00.00 - Encounter for general adult medical examination without abnormal findings (3) Obesity (BMI 35.0-39.9 without comorbidity): Code(s): E66.9 - Obesity, unspecified Plan: Encouraged healthy food choices and exercise as tolerated Patient interested in first helper referral She would like to hold off on weight management referral at this time (4) Low vitamin D level: Code(s): R79.89 - Other specified abnormal findings of blood chemistry Plan: Continue vitamin D3 50 mcg daily (5) Hepatic steatosis: Code(s): K76.0 - Fatty (change of) liver, not elsewhere classified Plan: Encouraged low-cholesterol diet and weight loss Plan Follow-up in 1 year for physical exam or sooner as needed Orders: Orders TDaP Immunization Today Z23 - Encounter for immunization Referrals Cooking Casing And Drying Supervisor Nutrition Referral E66.9 - Obesity, unspecified Dermatology Referral L91.8 - Other hypertrophic disorders of the skin Coding Level of Care Code Est Pt Prev Care 40-64y(35827) Diagnoses Skin tag L91.8 Adult general medical exam Z00.00 Obesity (BMI 35.0-39.9 without comorbidity) E66.9 Low vitamin D level R79.89 Hepatic steatosis K76.0 Additional Codes RAMEZ-7 Assessment Billing - RAMEZ-7 Assessment Tool: RAMEZ-7 Assessment 20110 ([id number])
== END 2023-01-11 11:17 | disposition home or self-care (01) ==
PROVIDERS: Visit Provider Nurse Practitioner Family
DX: Z00.00 Encounter for general adult medical examination without abnormal findings (principal); E66.9 Obesity, unspecified; Z68.38 Body mass index [BMI] 38.0-38.9, adult; L91.8 Other hypertrophic disorders of the skin; Z23 Encounter for immunization; R79.89 Other specified abnormal findings of blood chemistry; K76.0 Fatty (change of) liver, not elsewhere classified
CPT/HCPCS: 90471; 90715; 99396

== ENCOUNTER 2023-01-22 10:58 | Outpatient (REF) | payer OTHER, SELFPAY | END 2023-01-22 10:59 | disposition home or self-care (01) | LOC: HO.LAB 10:58 | PROVIDERS: PCP Nurse Practitioner Family; Visit Provider Advanced Practice Midwife | DX: N95.0 Postmenopausal bleeding (principal); N89.8 Other specified noninflammatory disorders of vagina | CPT/HCPCS: 99202 ==

== ENCOUNTER 2023-01-22 10:58 | Outpatient (AMB) | payer OTHER, SELFPAY ==
--- NOTE | 2023-01-22 11:01 | MHC.OFFVIS ---
Intake Vital Signs 01/22/23 11:02 Height 5 ft 2 in Weight 210 lb BMI 38.4 BP 106/66 Intake Visit Reasons: PMB/PCP Referral Intake Note: Last pap 2 yrs ago normal hx per pt done in [place] The patient agreed to use of a regional medical director during this encounter. Scribed for MARY Celis by Nancy Acosta, regional medical director, on 01/22/2023 at 11:16 am EST. Informatics Pharmacist Required: Yes Informatics Pharmacist Language: Leather Drier Name: [id number] Information Interpreted: non-clinical & clinical Quality Specialist: Quality Specialist Present (Marlen) Allergies Penicillins [PCN] Adverse Reaction (Verified 01/22/23 11:05) Rash Is last menstrual period known: Yes Last menstrual period: 11/11/22 HPI HPI Comments History of Present Illness Details She is here via PCP referral regarding PMB. Reports menopause for over 15 months while in [place], and bleeding started irregularly since September. Hx of normal pap smears. [facility] Medical History PMB (postmenopausal bleeding) Morbid obesity with BMI of 40.0-44.9, adult Encounter to establish care Surgical History H/O breast surgery History of cholecystectomy Family History Mother Fibromyalgia Hypothyroidism Father Prostate cancer Hypertension Hypothyroidism Paternal Grandmother History of breast cancer Social History Housing: House Patient Tobacco Use Status: Never used Tobacco Current occupational status: unemployed Cognitive needs: No Hearing needs: No Vision needs: No Female Reproductive History Menstrual Duration of menses: 8-10 days Date of last menstrual period: 11/11/22 Total pregnancies: 1 Full term: 1 Number of Living Children: 1 Physical Exam Vital Signs: Last Vital Signs BP 106/66 01/22/23 11:02 BMI result Body Mass Index 38.4 Const General: cooperative, healthy appearing, comfortable, no acute distress, well developed, alert and awake Other: General: Yes bladder normal to palpation External Female Exam: normal external appearance and normal appearance of the urethra Speculum Exam - Vagina: normal appearance of the vagina, normal palpation and normal vaginal discharge Speculum Exam - Cervix: normal appearance of the cervix and normal palpation Bimanual exam- vagina & uterus: normal bimanual exam, normal palpation, bladder normal to palpation and normal palpation Bimanual Exam- Adnexa, other: normal adnexae and no masses Assessment & Plan Assessment & Plan (1) PMB (postmenopausal bleeding): Code(s): N95.0 - Postmenopausal bleeding Plan: Discussed: Pap smear, Gc/CT, BV panel obtained today in office. Work up including pelvic US, labs and EMB. The EMB purpose was explained to rule out atypia, hyperplasia and uterine cancer. Reviewed procedure and instructed to take ibuprofen with food 1 hour prior to procedure. Go to ER with any prolonged or heavy bleeding. All of her questions and concerns were addressed to the best of my ability and shared decision making: for EMBx. She is agreeable to plan of care. Return in 2 weeks for test results and EMBX. (2) Vaginal itching: Code(s): N89.8 - Other specified noninflammatory disorders of vagina Plan: BV testing and GC/CT panel done today. Await results and treat accordingly. (3) Vaginal odor: Code(s): N89.8 - Other specified noninflammatory disorders of vagina Orders: Orders Follicle Stimulating Hormone Today N95.0 - Postmenopausal bleeding, R23.2 - Flushing Bacterial Vaginosis Panel Today N89.8 - Other specified noninflammatory disorders of vagina, N95.0 - Postmenopausal bleeding US pelvic and transvaginal Today N95.0 - Postmenopausal bleeding CT NG by PCR Today N89.8 - Other specified noninflammatory disorders of vagina, N95.0 - Postmenopausal bleeding Pap Smear Today N95.0 - Postmenopausal bleeding Coding Level of Care Code New Pt Level 4 (83550) Diagnoses PMB (postmenopausal bleeding) N95.0 Vaginal itching N89.8 Vaginal odor N89.8
[2023-01-22 11:02] VITALS: BP 106/66; BMI 38.4
== END 2023-01-22 11:30 | disposition home or self-care (01) ==
PROVIDERS: PCP Nurse Practitioner Family; Visit Provider Advanced Practice Midwife
DX: N95.0 Postmenopausal bleeding (principal); N89.8 Other specified noninflammatory disorders of vagina
CPT/HCPCS: 99204

== ENCOUNTER 2023-01-22 11:30 | Outpatient (REF) | payer OTHER, SELFPAY ==
[2023-01-23 05:39] LABS: CT PCR NOT DETECTED (Not Detect.); NG PCR NOT DETECTED (Not Detect.)
[2023-01-23 15:12] LABS: BV Int Neg Control Negative (Negative); BV Int Pos Control Positive (Positive)
[2023-01-26 03:34] LABS: HPV mRNA E6/E7 rflx Not Detected (Not Detected)
== END 2023-01-22 11:31 | disposition home or self-care (01) ==
LOC: HO.LNP 11:30
PROVIDERS: Visit Provider Advanced Practice Midwife
DX: Z12.4 Encounter for screening for malignant neoplasm of cervix (principal); Z11.51 Encounter for screening for human papillomavirus (HPV); N95.0 Postmenopausal bleeding; N89.8 Other specified noninflammatory disorders of vagina
CPT/HCPCS: 0353U; 87480; 87510; 87624; 87660; 88142

== ENCOUNTER 2023-02-14 11:33 | Outpatient (REF) | payer OTHER, SELFPAY | END 2023-02-14 11:34 | disposition home or self-care (01) | LOC: HO.US 11:33 | PROVIDERS: PCP Nurse Practitioner Family; Visit Provider Advanced Practice Midwife | DX: N95.0 Postmenopausal bleeding (principal) | CPT/HCPCS: 76830; 76856 ==

== ENCOUNTER 2023-02-21 12:21 | Outpatient (AMB) | payer OTHER, SELFPAY ==
--- NOTE | 2023-02-21 12:34 | A.OFFVIS_ITS ---
Intake VS Expanded 02/21/23 12:35 03/03/23 20:38 Height 5 ft 2 in 5 ft 2 in Weight 212 lb 8.41 oz 212 lb BMI 38.9 38.8 Intake Visit Reasons: dm Allergies Penicillins [PCN] Adverse Reaction (Verified 01/22/23 11:05) Rash HPI Nutrition Presentation Details Pt presents for MNT for obesity. The Pt was referred by primary care provider, ERICKA Davis, from [facility] Pt reports typical meal routine 10: sandwich or crackers with ham/chees e, coffee( cream and agave) 2-3 pm snacks on cookies/chips, water or juice 8 pm : rice/beans, chicken fried, juice physical activity sedentary food frequency: fruit/day 0-1 vegetables : 5 x/wk dairy: 3 /d protein 10 oz/d starches > 18 /d empty veronica foods 3+/day soda 1-2 /d , coffee 2-3 /d, and water 16 oz/d ETOH/SMoking: denies IKB-Uicwrdm-Ov.Jeor Equation Height 5 ft 2 in Weight 212 lb Resting Metabolic Rate 1552.66 Calculated Activity Level Sedentary Calories Needed to Maintain Weight 1863.19 Diagnosis Nutrition problem #1 excessive energy intake As related to (etiology) #1 lack of nutrit education As evidenced by (sign/symptom) #1 knowledge deficit of diet Monitoring/Goals Nutrition problem monitoring level of knowledge/skill and weight Nutrition goal/outcome list 3 CHO foods and wt loss 5lbs in 2 months Outcome progress verbalized understanding Learning/Education Readiness to learn good Stages of change contemplation Educational materials provided Yes (meal planning ) Most Recent Diabetes Results: No Data to Display [facility] Medical History PMB (postmenopausal bleeding) Morbid obesity with BMI of 40.0-44.9, adult Encounter to establish care Surgical History H/O breast surgery History of cholecystectomy Family History Mother Fibromyalgia Hypothyroidism Father Prostate cancer Hypertension Hypothyroidism Paternal Grandmother History of breast cancer Social History Housing: House Patient Tobacco Use Status: Never used Tobacco Current occupational status: unemployed Cognitive needs: No Hearing needs: No Vision needs: No Assessment & Plan Assessment & Plan (1) Obesity (BMI 35.0-39.9 without comorbidity): Code(s): E66.9 - Obesity, unspecified Plan: wt: 96 kg Est kcal needs as per MSJ: 1800 (40% carb, 30% protein/fat) Est fluid needs as per 25-30 ml/d: 5542-9395 Est prot per day as per 1 g/kg bw: 96 Recommend fiber intake : 8-10 g per day and gradually increase to 25-28 g per day for women and 35-38 g for men or as tolerated Recommend sodium intake per day : less than 2000 mg Educated patient on: ( R = reviewed V = verbalizes understanding N/R = needs review N/A = not applicable * Food sources of carbohydrate, adequate serving sizes and its role in various health conditions: R * Differences between complex carbohydrates a simple carbohydrates, role of fiber in diet: R * Differences between types of fats and role in diet (mono on saturated fat fatty acids, saturated fatty acids, trans fats): R basic * Food sources of sodium in salt and healthy modifications for heart health in kidney health: R * Vitamins and minerals: R = * Healthy plate method concept: R * Physical activity: Benefits a precaution: R * Plan Work on having 3 balanced meals per day and 0-1 snack consisting of 45-60 g carb per meal following healthy plate method see list of meal ideas as reference Coding Level of Care Code Nutr Indiv Intake (91351) Diagnoses Obesity (BMI 35.0-39.9 without comorbidity) E66.9 Time Spent (min) 30
[2023-02-21 12:35] VITALS: BMI 38.9
[2023-03-03 20:38] VITALS: BMI 38.8
== END 2023-02-21 13:24 | disposition home or self-care (01) ==
PROVIDERS: PCP Nurse Practitioner Family; Visit Provider Dietitian, Registered
DX: E66.9 Obesity, unspecified (principal)

== ENCOUNTER → 2023-02-21 12:21 | Outpatient (BNVA) | payer OTHER, SELFPAY | PROVIDERS: PCP Nurse Practitioner Family; Visit Provider Dietitian, Registered | DX: E66.9 Obesity, unspecified (principal); Z68.38 Body mass index [BMI] 38.0-38.9, adult; Z71.3 Dietary counseling and surveillance | CPT/HCPCS: 97802 ==

== ENCOUNTER 2023-03-07 09:27 | Outpatient (AMB) | payer OTHER, SELFPAY ==
--- NOTE | 2023-03-07 09:47 | AM.OFFVISNUR ---
Intake Intake Visit Reasons: Flu shot Allergies Penicillins [PCN] Adverse Reaction (Verified 01/22/23 11:05) Rash Office Procedures Flu Questionnaire Does the patient have a severe egg allergy?: No Does the patient have severe life threatening allergies?: No Does the patient have a fever or illness today?: No Has the patient ever had Guillain-Garrard Syndrome?: No Has the patient ever had any past reaction to a flu shot?: No Immunizations flu vacc [id number] 6mos up(PF) 60 mcg(15 mcgx4)/0.5 mL IM syringe Performing Provider: ERICKA Noble [facility] Administered by: Liz Dominguez RN on 03/07/23 09:52 Dose Route Admin Location Dispensed Lot Number Expiration Date NDC Hand Worker 0.5 mL IM Left Deltoid 0.5 mL [id number] 11/10/23 19778-366-34 [employer] VIS Given Date VIS Provided VIS Publication Date 03/07/23 Single Vaccine 20 Eligibility Eligibility Date Funding Source Not [facility] Eligible 03/07/23 Private Coding Assessment & Plan Assessment & Plan Orders: Orders Influenza [id number] Immunization Today Z23 - Encounter for immunization
== END 2023-03-07 09:53 | disposition home or self-care (01) ==
PROVIDERS: PCP Nurse Practitioner Family; Visit Provider Nurse Practitioner Family
DX: Z23 Encounter for immunization (principal)
CPT/HCPCS: 90471; 90686

== ENCOUNTER 2023-03-12 08:03 | Outpatient (REF) | payer OTHER, SELFPAY ==
[2023-03-14 01:59] LABS: Follicle Stimulating Hormone 41.6 mIU/mL
== END 2023-03-12 08:04 | disposition home or self-care (01) ==
LOC: HO.LAB 08:03
PROVIDERS: PCP Nurse Practitioner Family; Visit Provider Advanced Practice Midwife
DX: R23.2 Flushing (principal); N95.0 Postmenopausal bleeding
CPT/HCPCS: 36415; 83001

== ENCOUNTER 2023-03-26 12:21 | Day surgery (SDC) | payer OTHER, SELFPAY ==
--- NOTE | 2023-03-25 10:07 | HO.ANESPROP2 ---
Documented by User: Nusrat Lim NP 03/25/23 10:10 HPI - Anesthesia Eval Consult details Narrative: 47yo F for Upper Endoscopy with Balloon Dilitation, Colonoscopy PMFSH Active Problems Active Problems: All Active Problems (Updated 01/22/23 @ 11:27 by Nancy Acosta) PMB (postmenopausal bleeding) (Acute) Skin tag (Acute) Adult general medical exam (Acute) Obesity (BMI 35.0-39.9 without comorbidity) (Acute) Vaginal itching (Acute) Dysuria (Acute) UTI (urinary tract infection), uncomplicated (Acute) Abnormal vaginal bleeding (Acute) Screening for tuberculosis (Acute) Lateral epicondylitis, right elbow (Acute) Right elbow pain (Acute) Hepatic steatosis (Acute) Renal cyst, right (Acute) Dysphagia (Acute) Low vitamin D level (Acute) Elevated LFTs (Acute) Screening for colon cancer (Acute) Left knee pain (Acute) Right elbow pain (Acute) Past Medical History Medical History PMB (postmenopausal bleeding) Morbid obesity with BMI of 40.0-44.9, adult Encounter to establish care Family History Family History Mother Fibromyalgia Hypothyroidism Father Prostate cancer Hypertension Hypothyroidism Paternal Grandmother History of breast cancer Surgical History Surgical History H/O breast surgery History of cholecystectomy Social History Social History Housing: House Patient Tobacco Use Status: Never used Tobacco Are you DNR?: No Advance Directives: No Advance Directives Information Provided: Yes Nutrition Risks: No Nutritional Risk Current occupational status: unemployed Cognitive needs: No Hearing needs: No Vision needs: No Meds Allergies Allergy/AdvReac Type Severity Reaction Status Date / Time Penicillins [PCN] AdvReac Rash Verified 01/22/23 11:05 Exam Exam Date and Time: March 25, 2023 1007 Pertinent Lab Results Pertinent Lab Results: Laboratory Tests 10/12/22 09:35 WBC 7.3 Hgb 12.6 Hct 36.8 L Plt Count 278 Sodium 140 Potassium 4.1 Chloride 106 Carbon Dioxide 25 BUN 11 Creatinine 0.68 Assessment and Plan Assessment Anesthesia Assessment: Chart Reviewed Documented by User: Araceli Rutherford MD 03/26/23 13:44 HPI - Anesthesia Eval Consult details Narrative: 47yo F for Upper Endoscopy with Balloon Dilatation, Colonoscopy PMFSH Active Problems Active Problems: All Active Problems (Updated 03/26/23 @ 12:30 by Araceli Rutherford MD) PMB (postmenopausal bleeding) (Acute) Adult general medical exam (Acute) Obesity BMI 38.9 UTI (urinary tract infection), uncomplicated (Acute) Abnormal vaginal bleeding (Acute) Lateral epicondylitis, right elbow (Acute) Right elbow pain (Acute) Hepatic steatosis (Acute) Renal cyst, right (Acute) Dysphagia (Acute) Low vitamin D level (Acute) Elevated LFTs (Acute) Screening for colon cancer (Acute) Left knee pain (Acute) Past Medical History Medical History PMB (postmenopausal bleeding) Morbid obesity with BMI of 40.0-44.9, adult Encounter to establish care Family History Family History Mother Fibromyalgia Hypothyroidism Father Prostate cancer Hypertension Hypothyroidism Paternal Grandmother History of breast cancer Family history of problems with anesthesia: No Surgical History Surgical History H/O breast surgery History of cholecystectomy History of Problems with Anesthesia: No Social History Social History Housing: House Patient Tobacco Use Status: Never used Tobacco Are you DNR?: No Advance Directives: No Advance Directives Information Provided: Yes Nutrition Risks: No Nutritional Risk Current occupational status: unemployed Cognitive needs: No Hearing needs: No Vision needs: No Meds Allergies Allergy/AdvReac Type Severity Reaction Status Date / Time Penicillins [PCN] AdvReac Rash Verified 01/22/23 11:05 Exam Height,Weight and Vital Signs: Height 5 ft 2 in Weight 96.524 kg Vital Signs Temp Pulse Resp BP Pulse Ox O2 Del Method 03/26/23 12:32 97 F 88 20 129/83 98 Room Air Pertinent Lab Results Pertinent Lab Results: Laboratory Tests 10/12/22 09:35 WBC 7.3 Hgb 12.6 Hct 36.8 L Plt Count 278 Sodium 140 Potassium 4.1 Chloride 106 Carbon Dioxide 25 BUN 11 Creatinine 0.68 Lab Results 03/26/23 Range/Units 12:21 Urine Test NEGATIVE (NEGATIVE) Airway Mallampati Class: II TM Dist: >3cm Neck ROM: Full Loose/Missing/Broken Teeth: Yes (Braces in place. Chipped top incisor) Heart: RRR Lungs: CTAB Assessment and Plan Assessment Anesthesia Assessment: Anesthesia Plan Discussed Final Anesthetic Review Family History of Problems with Anesthesia: No History of Problems with Anesthesia: No NPO: Yes ASA Class: II Final Preanesthetic Review: No Changes in Pt Med Stat, Meds/Allgs Chart Reviewed, Consent Obtained/Reviewed and Anes Risks/Benef Reviewed Patient Risk: Low Procedure Risk: Low Assessment/Block/Sedation in SS: Assess/Block/Sedation-SS Anesthetic Plan Anesthetic Plan: MAC: Disposition: Standard PACU
[2023-03-26 12:32] VITALS: BP 129/83; PULSE 88; RESP 20; TEMP 36.1; O2SAT 98; BMI 38.9
[2023-03-26 12:42] LABS: UPreg QC Valid YES; Urine Pregnancy NEGATIVE (NEGATIVE)
[2023-03-26] MEDS: Lactated Ringers 1,000 ML 100 ML IVCONT (12:57)
--- NOTE | 2023-03-26 13:29 | MHC.SHP ---
Pre-Procedural Eval Section A Date of Service: 03/26/23 Section B Chief Complaint: Dysphagia, screening Details of Present Illness: PSH: H/O breast surgery History of cholecystectomy Relevant Family History (Specify if Yes): No Relevant Social History: None Present Medications: see Short Stay Collaborative assessment Medical History: No relevant PMH Allergies: Allergies Allergy/AdvReac Type Severity Reaction Status Date / Time Penicillins [PCN] AdvReac Rash Verified 01/22/23 11:05 Review of Systems Review of Systems Comment: Ten point ROS negative Exam Exam Comment: Gen appear: No acute distress HEENT: no icterus Chest: No overt resp distress Abd: soft, nontender, nondistended Psych: Stable affect, answering questions appropriately Neuro: A/Ox3 noted to move all extremities spontaneously Ext: no peripheral edema Plan Diagnosis/Plan: Unchanged I have reviewed the history and physical and performed a pertinent physical examination on my patient. No changes have occurred unless specified. Time Spent With Patient Time: Total time managing care of this patient today ____ minutes.
[2023-03-26 14:59] VITALS: BP 107/66; PULSE 80; RESP 20; TEMP 36.2; O2SAT 99
--- NOTE | 2023-03-26 15:01 | P.OP_ITS ---
Operative Note Operative Note Date of Service: 03/26/23 Narrative: Procedure:?Esophagogastroduodenoscopy and colonoscopy Endoscopist:?Theresa Lee MD Indication:?Dysphagia, screening for colorectal ca Anesthesia Provider:?Yen Gil CRNA Anesthesia Type:?MAC Instrument:?Olympus GIF-H190, PCF-H190L EGD Procedure:?? The procedure, indications, preparation and potential complications were reviewed with the patient who indicated understanding and gave written informed consent to proceed. A physical exam was performed. The endoscope was introduced through the mouth, and advanced to the second part of duodenum. The mucosa was carefully examined on slow withdrawal of the endoscope. There were no immediate complications. Patient tolerated the procedure well. EGD Findings:? * Esophagus:?A few linear erosions measuring 5-10 mm but not crossing the tops of mucosal folds were noted at the GE junction. The Z line was at 37 cm. Middle and lower esophageal cold forceps biopsies were taken to r/o eosinophilic esophagitis. A small patch of heterotopic gastric mucosa was n oted in the upper esophagus. * Stomach:? Normal gastric mucosa. Retroflexion performed in the fundus. * Duodenum:? Normal duodenal mucosa noted to the extent examined. Additional intervention: A soft tipped Savary wire was passed through the biopsy channel of the gastroscope and advanced to the antrum. The gastroscope was then backed out Savary-Iman bougie was advanced over the guidewire. The esophagus was incrementally dilated from 18 to 20 mm without any resistance felt. On relook there was no heme or tear. Colonoscopy Procedure:? The patient was then turned for the colonoscopy. A digital rectal exam was performed which was abnormal for external hemorrhoids.? A distal attachment cap was affixed to the tip of the scope and the colonoscope was then inserted through the anus and advanced through the colon to the cecum at 65 cm and terminal ileum. Appendiceal orifice and ileocecal valve were identified. Mucosa was carefully examined under high definition white light as the instrument was slowly withdrawn in a retrograde panoramic fashion. Retroflexion was performed in ascending colon and rectum. The procedure was not difficult. There were no immediate obvious complications. The quality of the prep was BBPS: 2+3+2 = adequate Withdrawal time: 8 minutes Limitations: No limitation. Findings: Mucosa: Normal mucosa to cecum and terminal ileum. Protruding lesions: * Large internal hemorrhoids without stigmata of recent bleeding. Impression: 1. Grade B esophagitis 2. Inlet patch 3. Normal gastric mucosa 4. Normal duodenum 5. Normal colon and terminal ileum mucosa 6. External and internal hemorrhoids Recommendations:?? * Suspect sensation of dysphagia is likely due to erosive esophagitis. Recommend INCREASING omeprazole to 20mg BID for 6-8 weeks and then once daily indefinitely. * Await pathology results. * Repeat colonoscopy in 10 years for asymptomatic colorectal cancer screening
[2023-03-26 15:14] VITALS: BP 109/71; PULSE 73; RESP 20; O2SAT 99
[2023-03-26 15:29] VITALS: BP 97/68; PULSE 68; RESP 20; O2SAT 96
[2023-03-26 15:41] VITALS: BP 111/69; PULSE 67; RESP 20; TEMP 36.2; O2SAT 97
== END 2023-03-26 15:59 | disposition home or self-care (01) ==
PROVIDERS: Nurse Practitioner; PCP Nurse Practitioner Family; Visit Provider Internal Medicine
PROC: (CPT 43248; principal; 2023-03-26 14:00)
DX: K20.90 Esophagitis, unspecified without bleeding (principal); K22.89 Other specified disease of esophagus; K21.9 Gastro-esophageal reflux disease without esophagitis; R13.10 Dysphagia, unspecified; Z12.11 Encounter for screening for malignant neoplasm of colon; K64.8 Other hemorrhoids; K64.4 Residual hemorrhoidal skin tags; E66.9 Obesity, unspecified; Z68.38 Body mass index [BMI] 38.0-38.9, adult; E55.9 Vitamin D deficiency, unspecified; K76.0 Fatty (change of) liver, not elsewhere classified
CPT/HCPCS: 43248; 43239; 45378; 81025; 88305; C1769; J2704

== ENCOUNTER → 2023-03-26 12:21 | Outpatient (BNV) | payer OTHER, SELFPAY | PROVIDERS: PCP Nurse Practitioner Family; Visit Provider Internal Medicine | DX: Z12.11 Encounter for screening for malignant neoplasm of colon (principal); K20.90 Esophagitis, unspecified without bleeding; K64.8 Other hemorrhoids | CPT/HCPCS: 43248; 45378 ==

== ENCOUNTER 2023-04-02 16:43 | Outpatient (AMB) | payer OTHER, SELFPAY ==
--- NOTE | 2023-04-02 16:45 | MHC.PC.OV ---
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 She finished physical therapy 12/2022 for the same issue. Reports mild numbness in her right elbow area. Reports taking Advil with some improvement. She also reports left neck area tender lump since having flu shot and left arm 1 month ago. Also reports intermittent eyelids twitching for the past some time. COUNT INCLUDES THE [facility] Medical History PMB (postmenopausal bleeding) Morbid obesity with BMI of 40.0-44.9, adult Encounter to establish care Surgical History H/O breast surgery History of cholecystectomy Family History Mother Fibromyalgia Hypothyroidism Father Prostate cancer Hypertension Hypothyroidism Paternal Grandmother History of breast cancer Housing: House Patient Tobacco Use Status: Never used Tobacco Current occupational status: unemployed Cognitive needs: No Hearing needs: No Vision needs: No Questionnaire Thrive Questionnaire Date Thrive assessed: 10/10/22 RAMEZ-7 AMB Questionnaire RAMEZ-7 Date RAMEZ - 7 assessed: 01/11/23 Source: Developed by Drs. Manuelito Triplett, Penny Millan, Segundo Gomes and colleagues, with an educational kenji from [employer]. Review of Systems Const Denies body aches, Denies chills, Denies fever(s) and Denies headache(s) Eyes Denies change in vision ENT Denies dizziness, Denies otalgia, Denies headache(s), Denies nasal discharge, Denies sinus pain and Denies sore throat Card Denies chest pain, Denies edema, Denies lightheadedness and Denies dyspnea Resp Denies cough, Denies dyspnea and Denies wheezing GI Denies abdominal pain Denies dysuria Musc Denies myalgias and Reports arthralgias Skin/Breast Reports as per HPI and Denies rash Neuro Denies dizziness and Denies headache(s) Aller/Immun Denies wheezing Physical exam (Primary Care) Vital Signs: Last Vital Signs Pulse 74 04/02/23 16:46 BP 124/78 04/02/23 16:46 Pulse Ox 98 04/02/23 16:46 Oxygen Delivery Method Room Air 04/02/23 16:46 BMI result Body Mass Index 39.7 Tobacco/Smoking Status: Tobacco use Status Tobacco use date assessed 04/02/23 04/02/23 16:50 Patient Tobacco Use Status Never used Tobacco 04/02/23 16:46 Thrive Assessment: Date of Thrive Assessment Date Thrive assessed 10/10/22 04/02/23 16:46 Const General: cooperative and no acute distress Orientation/consciousness: patient oriented x3 [facility] Head: Yes normocephalic and Yes atraumatic Throat: Yes posterior oropharynx normal Eyes General: appearance normal, both eyes and all related structures Neck Neck: Yes normal visual inspection and Yes full ROM Resp Effort & Inspection: normal respiratory effort and able to speak in complete sentences Auscultation: clear to auscultation bilaterally, no crackles, no rales, no rhonchi and no wheezes Cardio Rate: regular rate Rhythm: regular rhythm Heart sounds: S1 normal heart sound present and S2 normal heart sound present GI Auscultation: normal bowel sounds Skin Full body images: 1. left neck clavicle area lump per pt, tender to touch, skin is intact, no erythema, no palpable lump Neuro General: patient oriented x3 Gait exam (Neuro): Normal gait present Extrem General: Yes full ROM and No edema Right upper extremity: elbow/forearm Details: normal to inspection, tenderness (Lateral), abnormal ROM (Some pain with range of motion) and distal pulses intact; no swelling and no unusual warmth Assessment and Plan Assessment & Plan (1) Eyelid twitch: Code(s): R25.3 - Fasciculation Plan: Labs ordered (2) Lump of skin: Code(s): R22.9 - Localized swelling, mass and lump, unspecified Plan: Will do ultrasound (3) Right elbow pain: Code(s): M25.521 - Pain in right elbow Plan: OT referral Follow-up in the office if no improvement after OT Continue [id number] Advil as needed Plan [place]-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 Panel 04/02/23 R25.3 - Fasciculation Complete Blood Count no Diff 04/02/23 R25.3 - Fasciculation US extremity nonvascular 04/02/23 R22.9 - Localized swelling, mass and lump, unspecified Vitamin D 25-OH Total 04/02/23 R25.3 - Fasciculation Magnesium 04/02/23 R25.3 - Fasciculation Coding Level of Care Code Est Pt Level 4 (05461) Diagnoses Eyelid twitch R25.3 Lump of skin R22.9 Right elbow pain M25.521
[2023-04-02 16:46] VITALS: BP 124/78; PULSE 74; O2SAT 98; BMI 39.7
== END 2023-04-02 17:11 | disposition home or self-care (01) ==
PROVIDERS: PCP Nurse Practitioner Family; Visit Provider Nurse Practitioner Family
DX: R25.3 Fasciculation (principal); R22.9 Localized swelling, mass and lump, unspecified; M25.521 Pain in right elbow
CPT/HCPCS: 99214

== ENCOUNTER 2023-04-09 12:02 | Outpatient (AMB) | payer OTHER, SELFPAY ==
--- NOTE | 2023-04-09 12:15 | A.OFFVIS_ITS ---
Intake Vital Signs 04/09/23 12:32 Height 5 ft 2 in BP 124/63 Blood Pressure Location Lt brachial Position Sitting Pulse 80 Intake Visit Reasons: s/p egd/colon soheila pt Intake Note: Patient follow up for EGD/Colonoscopy results. 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 interpeter Allergies Penicillins [PCN] Adverse Reaction (Verified 04/29/23 14:23) Rash HPI s/p egd/colon soheila pt HPI Details LAST VISIT WITH DR. SR 11/07/2022 Plan 1. Dysphagia: nonprogressive dysphagia, intermittent. Differentials include esophageal web/ring, stricture, dysmotility, EoE. Plan: - Barium swallow ordered - Depending on results will need EGD - Omeprazole 20mg PO to be started in meanwhile to mitigate GERD related dysmotility 2. Elevated LFTs: pattern suspicious for fatty liver. Other Ddx include AIH, celiac, iron overload etc. PLan: - Labs ordered as below - US already ordered and pending 3. CRC screening. Average risk. Pt prefe rs to [facility] colonoscopy. - Split prep instructions reviewed for P EG - May be scheduled with EGD depending on results UPPER ENDOSCOPY AND COLONOSCOPY: EGD Findings:? * Esophagus:?A few linear erosions measuring 5-10 mm but not crossing the tops of mucosal folds were noted at the GE junction. The Z line was at 37 cm. Middle and lower esophageal cold forceps biopsies were taken to r/o eosinophilic esophagitis. A small patch of heterotopic gastric mucosa was noted in the upper esophagus. * Stomach:? Normal gastric mucosa. Retroflexion performed in the fundus. * Duodenum:? Normal duodenal mucosa noted to the extent examined. Additional intervention: A soft tipped Savary wire was passed through the biopsy channel of the gastroscope and advanced to the antrum. The gastroscope was then backed out Savary-Iman bougie was advanced over the guidewire. The esophagus was incrementally dilated from 18 to 20 mm without any resistance felt. On relook there was no heme or tear. Colonoscopy Procedure:? The patient was then turned for the colonoscopy. A digital rectal exam was performed which was abnormal for external hemorrhoids.? A distal attachment cap was affixed to the tip of the scope and the colonoscope was then inserted through the anus and advanced through the colon to the cecum at 65 cm and terminal ileum. Appendiceal orifice and ileocecal valve were identified. Mucosa was carefully examined under high definition white light as the instrument was slowly withdrawn in a retrograde panoramic fashion. Retroflexion was performed in ascending colon and rectum. The procedure was not difficult. There were no immediate obvious complications. The quality of the prep was BBPS: 2+3+2 = adequate Withdrawal time: 8 minutes Limitations: No limitation. Findings: Mucosa: Normal mucosa to cecum and terminal ileum. Protruding lesions: * Large internal hemorrhoids without stigmata of recent bleeding. Impression: 1. Grade B esophagitis 2. Inlet patch 3. Normal gastric mucosa 4. Normal duodenum 5. Normal colon and terminal ileum mucos a 6. External and internal hemorrhoids Recommendations:?? * Suspect sensation of dysphagia is likely due to erosive esophagitis. Recommend INCREASING omeprazole to 20mg BID for 6-8 weeks and then once daily indefinitely. * Await pathology results. * Repeat colonoscopy in 10 years for asymptomatic colorectal cancer screening PATHOLOGY RESULTS: Diagnosis A. Esophagus, lower, biopsy: Esophageal squamous mucosa with mild reactive changes; no evidence of active esophagitis (including eosinophilic esophagitis), fungal organisms, dysplasia, or malignancy. B. Esophagus, middle, biopsy: Esophageal squamous mucosa with no diagnostic abnormality; no evidence of active esophagitis (including eosinophilic esophagitis), fungal org anisms, dysplasia, or malignancy TODAY'S VISIT: Patient is here today for follow-up and to discuss upper endoscopy and colonoscopy. Patient is Dr. Sr's patient. Upper endoscopy and colonoscopy discussed with patient. No active esophagitis, gastritis or duodenitis seen. Colonoscopy had no polyps. Internal and external hemorrhoids. Patient continues to have dyspepsia and epigastric discomfort. Was taking omeprazole, however felt like might not be helpful. Patient was taking twice a day for few weeks and now is taking daily. Patient states that she still is having trouble in the and sometimes fall the day postprandially. Patient states that she is avoiding dietary triggers. Avoiding anything that is spicy. Patient denies any nausea or vomiting. Patient denies any melena, hematochezia, unintentional weight loss or ribbon like stools. Patient denies any ill effects from the prep, anesthesia or procedure itself patient reports that she is moving her bowels without any issues. Lab results discussed with patient again. Ultrasound showed hepatic steatosis PFSH Medical History (Updated 05/03/23 @ 19:29 by Sarah Beth Batres, [facility]) PMB (postmenopausal bleeding) Morbid obesity with BMI of 40.0-44.9, adult Encounter to establish care Surgical History H/O breast surgery History of cholecystectomy Family History Mother Fibromyalgia Hypothyroidism Father Prostate cancer Hypertension Hypothyroidism Paternal Grandmother History of breast cancer Social History Housing: House Patient Tobacco Use Status: Never used Tobacco Current occupational status: unemployed Cognitive needs: No Hearing needs: No Vision needs: No Review of Systems Const Denies weight gain and Denies weight loss ENT Reports no additional complaints, Denies dysphagia and Denies odynophagia Card Reports no additional complaints Resp Reports no additional complaints GI Denies abdominal pain, Denies belching, Denies melena, Denies bloating, Denies change in bowel habits, Denies dysphagia, Denies excessive flatus, Reports dyspepsia, Reports heartburn, Denies diarrhea, Denies loose stools, Denies nausea, Denies odynophagia and Denies vomiting Reports no additional complaints Musc Reports no additional complaints Neuro Reports no additional complaints Psych Reports no additional complaints Endo Reports no additional complaints Physical Exam Vital Signs: Last Vital Signs Pulse 80 04/09/23 12:32 BP 124/63 04/09/23 12:32 Const General: healthy appearing, no acute distress and well developed Nutritional Appearance: obese Orientation/consciousness: patient oriented x3 HEENT Head: Yes normal to inspection, Yes normocephalic and Yes atraumatic Face and sinus: Yes normal facial exam Mouth: Normal oral and palatal mucosa present Throat: Yes posterior oropharynx normal, Yes tonsils normal and Yes uvula midline Eyes General: appearance normal, both eyes and all related structures Neck Neck: Yes normal visual inspection, Yes full ROM and Yes trachea midline Thyroid: Thyroid normal Resp Effort & Inspection: normal respiratory effort, able to speak in complete sentences, no tracheal deviation and symmetric chest movement Auscultation: clear to auscultation bilaterally Cardio Rate: regular rate GI Inspection: Yes normal to inspection, No distended and Yes obesity Palpation (GI): Soft to palpation, not firm, nontender and No hepatosplenomegaly present Auscultation: normal bowel sounds General: Yes no CVA tenderness Back/Spine/Pelvis Back: no CVA tenderness Skin General skin exam: elasticity normal, turgor normal and dry skin Neuro General: patient oriented x3 Psych Appearance: grossly normal Mental Status: mental status grossly normal Results Reviewed Results Reviewed: ABDOMINAL ULTRASOUND ORDERED BY PCP 11/08/2022 FINDINGS: PANCREAS: Limited visualization. LIVER: The liver is normal in size. The liver contour is normal. There is diffuse increased liver parenchymal echogenicity, consistent with hepatic steatosis. No definite focal lesion is seen, but evaluation is limited due to poor sound beam penetration through the coarse echogenic liver parenchyma. There is no intrahepatic biliary duct dilatation seen. GALLBLADDER: Surgically absent. COMMON BILE DUCT: Normal in caliber measuring 0.7 cm in diameter. RIGHT KIDNEY: Midpole cyst measures 0.8 x 0.7 x 0.8 cm. No hydronephrosis or renal calculi. The kidney measures 10.9 cm in maximum dimension. FREE FLUID: None. BARIUM SWALLOW X-RAY 12/17/2022 FINDINGS: The swallowing mechanism is normal. No aspiration or penetration. Esophageal motility is normal. There is a small sliding-type hiatal hernia. There is mild gastroesophageal reflux. No mass or stricture is seen. Barium tablet passed freely into the stomach. FL/FL barium swallow IMPRESSION: Gastroesophageal reflux and small sliding-type hiatal hernia. Laboratory Tests 10/12/22 11/08/22 09:35 08:20 Iron 69 TIBC 264 % Saturation 26 Unsat Iron Binding 195 Ferritin 113 Total Bilirubin 0.4 AST 34 H ALT 70 H Alkaline Phosphatase 58 Laboratory Tests 11/08/22 08:20 TSH 2.17 IgG 1133 IgA 265 JORGE Screen NEGATIVE Anti-Smooth Muscle Ab <20 Tiss Transglutamin IgA <1.0 Shanika/Kid Microsom Ab Int <=20.0 Hepatitis A IgM Ab Nonreactive Hep Bs Antigen Negative Hep Bs Antibody NONREACTIVE Hep B Core Total Ab Nonreactive Hepatitis C Ab (EIA) Nonreactive Assessment & Plan Assessment & Plan (1) Dysphagia: Code(s): R13.10 - Dysphagia, unspecified Qualifiers: Dysphagia type: other dysphagia Qualified Code(s): R13.19 - Other dysphagia (2) Internal hemorrhoids without complication: Code(s): K64.8 - Other hemorrhoids (3) GERD (gastroesophageal reflux disease): Code(s): K21.9 - Gastro-esophageal reflux disease without esophagitis Qualifiers: Esophagitis presence: without esophagitis Qualified Code(s): K21.9 - Gastro-esophageal reflux disease without esophagitis (4) Hepatic steatosis: Code(s): K76.0 - Fatty (change of) liver, not elsewhere classified (5) Elevated LFTs: Code(s): R79.89 - Other specified abnormal findings of blood chemistry Plan As mentioned above in HPI esophageal dilation performed without any problems. No esophagitis. No polyps. Patient continues to have dyspepsia. Takes omeprazole every morning. Will change to pantoprazole in the morning and famotidine and bedtime. Patient was encouraged to avoid dietary triggers and late night snacking. Staying upright for minimum 3 hours after meals discussed with patient. Script for hemorrhoids send. Lab results order by her GI provider reviewed with patient again as well as abdominal ultrasound. Hepatic steatosis. Rule out AIH, celiac, iron overload, PBC. I will see patient in 6 weeks, sooner on as needed basis. Patient will be seen by Dr. Sr afterwards. Patient is agreeable to this plan and verbalizes understanding of instructions. She was given the opportunity to ask questions and all questions answered. Thank you for allowing me to participate in her care Orders: Orders Rast Allergen 04/09/23 K21.9 - Gastro-esophageal reflux disease without esophagitis Medications: New pantoprazole take one tablet half an hour before breakfast 40 mg PO DAILY 90 tabs 2RF K21.9 - Gastro-esophageal reflux disease without esophagitis hydrocortisone 2.5% (Proctosol HC) 1 appl VA BID-QID PRN 30 grams 2RF hemorrhoids K64.9 - Unspecified hemorrhoids famotidine 40 mg PO BEDTIME 90 tabs 3RF K21.9 - Gastro-esophageal reflux disease without esophagitis Coding Level of Care Code Est Pt Level 4 (31804) Diagnoses Other dysphagia R13.19 Dysphagia type: other dysphagia Internal hemorrhoids without complication K64.8 Gastroesophageal reflux disease without esophagitis K21.9 Esophagitis presence: without esophagitis Hepatic steatosis K76.0 Elevated LFTs R79.89 Time Spent (min) 40 Comment 25 minutes spent with patient and additional 15 minutes spent reviewing her records
[2023-04-09 12:32] VITALS: BP 124/63; PULSE 80
== END 2023-04-09 12:33 | disposition home or self-care (01) ==
PROVIDERS: PCP Nurse Practitioner Family; Visit Provider Nurse Practitioner Family
DX: R13.19 Other dysphagia (principal); K64.8 Other hemorrhoids; K21.9 Gastro-esophageal reflux disease without esophagitis; K76.0 Fatty (change of) liver, not elsewhere classified; R79.89 Other specified abnormal findings of blood chemistry
CPT/HCPCS: 99214

== ENCOUNTER → 2023-04-09 12:02 | Outpatient (BNVA) | payer OTHER, SELFPAY | PROVIDERS: PCP Nurse Practitioner Family; Visit Provider Nurse Practitioner Family | DX: K64.8 Other hemorrhoids (principal); K76.0 Fatty (change of) liver, not elsewhere classified; K21.9 Gastro-esophageal reflux disease without esophagitis; R13.19 Other dysphagia; R79.89 Other specified abnormal findings of blood chemistry | CPT/HCPCS: 99212 ==

== ENCOUNTER 2023-04-10 10:48 | Outpatient (REF) | payer OTHER, SELFPAY | END 2023-04-10 10:49 | disposition home or self-care (01) | LOC: HO.LAB 10:48 | PROVIDERS: PCP Nurse Practitioner Family; Visit Provider Advanced Practice Midwife | DX: N95.0 Postmenopausal bleeding (principal); D25.9 Leiomyoma of uterus, unspecified; N83.201 Unspecified ovarian cyst, right side; N88.9 Noninflammatory disorder of cervix uteri, unspecified; Z71.2 Person consulting for explanation of examination or test findings | CPT/HCPCS: 58100; 81025; 88305 ==

== ENCOUNTER 2023-04-10 10:48 | Outpatient (AMB) | payer OTHER, SELFPAY ==
[2023-04-10 10:54] VITALS: BP 112/74; BMI 39.7
--- NOTE | 2023-04-10 10:54 | MHC.OFFVIS ---
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 Bled, August, September, January and February. FSH=41.6. The patient is here today for an endometrial biopsy for PMB to rule out any pathology including atypical, hyperplasia or cancer cells of the uterus. She was counseled regarding anticipatory guidance for the procedure including the risks for pain, infection, bleeding, perforation, potential injury to the tissues may include the cervix, uterus, tubes, bladder and bowels. These injuries may include further treatment and evaluation including surgery, blood transfusions, antibiotics, hospitalizations and anesthesia. Permanent injury and scarring can occur. She was consented for the procedure, and the consent forms were signed. She is agreeable to have the procedure today. All questions were answered. [facility] Medical History PMB (postmenopausal bleeding) Morbid obesity with BMI of 40.0-44.9, adult Encounter to establish care Surgical History H/O breast surgery History of cholecystectomy Family History Mother Fibromyalgia Hypothyroidism Father Prostate cancer Hypertension Hypothyroidism Paternal Grandmother History of breast cancer Social History Housing: House Patient Tobacco Use Status: Never used Tobacco Current occupational status: unemployed Cognitive needs: No Hearing needs: No Vision needs: No Female Reproductive History Menstrual Date of last menstrual period: 03/03/23 Review of Systems Const All systems reviewed & are unremarkable except as noted in HPI and below Physical Exam Vital Signs: Last Vital Signs BP 112/74 04/10/23 10:54 BMI result Body Mass Index 39.7 Const General: cooperative, healthy appearing and no acute distress Orientation/consciousness: patient oriented x3 GI Inspection: Yes normal to inspection Palpation (GI): Soft to palpation and Other GI palpation findings present (Nontender) Rectal Exam - Female: visual inspection normal General: Yes bladder normal to palpation External Female Exam: normal appearance of the urethra Speculum Exam - Vagina: normal appearance of the vagina, normal palpation and normal vaginal discharge Speculum Exam - Cervix: normal appearance of the cervix, normal palpation and Cervical lesion present (lesion noted at 12:00 o'clock) Bimanual exam- vagina & uterus: normal bimanual exam, normal palpation, uterine size normal, bladder normal to palpation, normal palpation, uterine shape normal and non-tender Bimanual Exam- Adnexa, other: normal adnexae Neuro General: patient oriented x3 Office Procedures Endometrial Biopsy Details: Endometrial Biopsy Procedure: The patient was placed in the dorsal lithotomy position and a sterile speculum inserted. Using aseptic technique for the procedure. The cervix was cleansed with Betadine x 3 swabs. The uterus was sounded to 7 cm with a 4mm pipelle for 3 passes. Minimal bleeding was observed. The tissue sample was placed in formalin in a patient labeled container by staff assisting and sent to the pathology department for processing and interpretation. The patient tolerate the procedure well and was in good condition when leaving the department. [id number] Biopsy Results AMB Test Urine AMB Test Urine Negative Last Edit by ELIGIO Jones on 04/10/23 11:09 Results Reviewed Results Reviewed: Laboratory Last Values Tst Clinic Negative 04/10/23 11:08 [place] [address] Ultrasound Report Signed Patient: Audrey Cramer MR#: [id number] : 1975 Acct:[id number] Age/Sex: 47 / F ADM Date: 02/14/23 Loc: HO. Attending Dr: Rica Hinds CNM Ordering Physician: Rica Hinds CNM Date of Service: 02/14/23 Procedure(s): US pelvic and transvaginal Accession Number(s): [id number] cc: Rica Hinds CNM; Lila Sevilla~ EXAMINATION: US PELVIS CLINICAL INFORMATION: Postmenopausal bleeding. COMPARISON: None available. TECHNIQUE: Ultrasound of the pelvis is performed using both transabdominal and transvaginal transducers along with Doppler. Transvaginal imaging is performed due to inadequate visualization transabdominally. FINDINGS: The uterus is anteverted and measures 7.8 x 4.7 x 5.1 cm in dimension. There is a 2.1 x 2 x 2.6 cm hypoechoic lesion in the uterine fundus probably representing a fibroid. There is a 1.1 x 1.3 x 1.4 cm hypoechoic lesion in the posterior upper uterine body probably representing a fibroid. There is a 4 x 4 x 5 mm echogenic lesion in the left posterior uterine body also probably representing a fibroid. Endometrial thickness is normal measuring 0.5 cm. The cervix is normal. The right ovary measures 4.8 x 4.8 x 1.8 cm, volume 58 mL and is enlarged. There is a 4.2 x 4 x 3.7 cm simple right ovarian cyst. The left ovary is normal and measures 3.2 x 1.9 x 1.6 cm. There is no fluid in the pelvis. US/US pelvic and transvaginal IMPRESSION: Normal thickness endometrium. Probable uterine fibroids. Enlarged ovary and 4.2 x 4 x 3.7 cm simple right ovarian cyst. Findings likely represent a probable benign cyst. Recommend followup ultrasonography in 3-6 months. Dictated By: Evangelina Nair MD Assessment & Plan Assessment & Plan (1) PMB (postmenopausal bleeding): Code(s): N95.0 - Postmenopausal bleeding Plan: Endometrial Biopsy Post Procedure Care: Nothing in the vagina including: tampons, douching or intimacy until all the bleeding has subsided. There may be some post procedure bleeding for several days, this bleeding is usually light and may turn to a light brown or pink color. Mild cramps may occurs. Nothing in the vaginal including: tampons, douching, or intimacy until all the bleeding has subsided. You may take an over the counter mild analgesic such as Tylenol or Advil (if no allergies) per the manufactures recommendation on dosing, frequency, and follow the directions completely. Call the office if any: fever (over 100.4), flu like symptoms, abdominal pain (worse than cramping), foul smelling, infected appearing vaginal discharge, or heavy bleeding. You will be scheduled for a follow up visit for results, either in person or on the phone when the results are completed in a few weeks. If indicated: Use condoms, after the bleeding has stopped completely. (2) Encounter to discuss test results: Code(s): Z71.2 - Person consulting for explanation of examination or test findings Plan: Ultrasound report as noted. (3) Uterine fibroid: Code(s): D25.9 - Leiomyoma of uterus, unspecified Qualifiers: Uterine leiomyoma location: unspecified location Qualified Code(s): D25.9 - Leiomyoma of uterus, unspecified Plan: Discuss fibroids and follow-up plan of care with the ultrasound surveillance. Advised to report any postmenopausal bleeding, bloating, pelvic pain. Ultrasound scheduled three-month follow-up, office visit to follow up for results. (4) Ovarian cyst: Code(s): N83.209 - Unspecified ovarian cyst, unspecified side Qualifiers: Laterality: right Qualified Code(s): N83.201 - Unspecified ovarian cyst, right side Plan: Discussed findings of simple cyst patient is asymptomatic. Ultrasound for follow-up fibroid insist in 3 months. All of her questions and concerns were addressed to the best of my ability and shared decision making. She is agreeable to the plan of care. (5) Abnormal cervix finding: Code(s): N88.9 - Noninflammatory disorder of cervix uteri, unspecified Plan: Noted lesion since last exam Pap smear obtained. Orders: Orders Surgical Today N95.0 - Postmenopausal bleeding AMB HCG Urine Test Today Z32.02 - Encounter for test, result negative US pelvic and transvaginal 3 Months D25.9 - Leiomyoma of uterus, unspecified, N83.209 - Unspecified ovarian cyst, unspecified side Pap Smear Today N88.9 - Noninflammatory disorder of cervix uteri, unspecified, N95.0 - Postmenopausal bleeding Coding Level of Care Code Procedure Only Diagnoses PMB (postmenopausal bleeding) N95.0 Encounter to discuss test results Z71.2 Uterine leiomyoma, unspecified location D25.9 Uterine leiomyoma location: unspecified location Cyst of right ovary N83.201 Laterality: right Abnormal cervix finding N88.9 CPT Codes Endometrial Biopsy - CPT: 72201-Kzxsbmputia Biopsy ([id number]) Comment additional coding for care/findings
== END 2023-04-10 11:28 | disposition home or self-care (01) ==
LOC: HO.HWS 10:48
PROVIDERS: PCP Nurse Practitioner Family; Visit Provider Advanced Practice Midwife
DX: N95.0 Postmenopausal bleeding (principal); D25.9 Leiomyoma of uterus, unspecified; N83.201 Unspecified ovarian cyst, right side; N88.9 Noninflammatory disorder of cervix uteri, unspecified; Z32.02 Encounter for pregnancy test, result negative
CPT/HCPCS: 58100

== ENCOUNTER 2023-04-10 11:36 | Outpatient (REF) | payer OTHER, SELFPAY ==
[2023-04-16 05:28] LABS: HPV mRNA E6/E7 rflx Not Detected (Not Detected)
== END 2023-04-10 11:37 | disposition home or self-care (01) ==
LOC: HO.LNP 11:36
PROVIDERS: Visit Provider Advanced Practice Midwife
DX: Z12.4 Encounter for screening for malignant neoplasm of cervix (principal); Z11.51 Encounter for screening for human papillomavirus (HPV); N88.9 Noninflammatory disorder of cervix uteri, unspecified; N95.0 Postmenopausal bleeding
CPT/HCPCS: 87624; 88142

== ENCOUNTER 2023-04-17 10:07 | Outpatient (REF) | payer OTHER, SELFPAY | END 2023-04-17 10:08 | disposition home or self-care (01) | LOC: HO.LAB 10:07 | PROVIDERS: PCP Nurse Practitioner Family; Visit Provider Nurse Practitioner Family | DX: K21.9 Gastro-esophageal reflux disease without esophagitis (principal) | CPT/HCPCS: 36415; 86003 ==

== ENCOUNTER 2023-04-19 12:41 | Outpatient (AMB) | payer OTHER, SELFPAY ==
--- NOTE | 2023-04-19 12:51 | A.OFFVIS_ITS ---
Intake Vital Signs 04/19/23 12:57 Height 5 ft 2 in Weight 216 lb 0.848 oz BMI 39.5 BP 118/70 Intake Visit Reasons: EMB results Sales Order Coordinator: Sales Order Coordinator Present Allergies Penicillins [PCN] Adverse Reaction (Verified 04/10/23 10:54) Rash Is last menstrual period known: Yes HPI HPI Comments History of Present Illness Details Patient is here for her test results on her endometrial biopsy due to postmenopausal bleeding. PFSH Medical History PMB (postmenopausal bleeding) Morbid obesity with BMI of 40.0-44.9, adult Encounter to establish care Surgical History H/O breast surgery History of cholecystectomy Family History Mother Fibromyalgia Hypothyroidism Father Prostate cancer Hypertension Hypothyroidism Paternal Grandmother History of breast cancer Social History Housing: House Patient Tobacco Use Status: Never used Tobacco Current occupational status: unemployed Cognitive needs: No Hearing needs: No Vision needs: No Review of Systems Const All systems reviewed & are unremarkable except as noted in HPI and below Physical Exam Vital Signs: Last Vital Signs BP 118/70 04/19/23 12:57 BMI result Body Mass Index 39.5 Const General: cooperative, healthy appearing and no acute distress Psych Appearance: well kempt Attitude: cooperative Thought process: Normal thought process present Results Reviewed Results Reviewed: Name: Audrey Cramer Age/Sex: 47/F Attending: Rica Hinds CNM : 1975 Submitted by: Rica Hinds CNM Copies to: Lila Sevilla MR #: [id number] Status: DEP REF Collected: 04/10/23 Location: .LAB Received: 04/11/23 Diagnosis Endometrium, biopsy: Proliferative endometrium with stromal breakdown; negative for atypia, hyperplasia or malignancy. Clinical History PMB Microscopic Description Microscopic sections reviewed. Material Received Endometrial biopsy Gross Description Received in formalin labeled ?EMB? is a 2.0 x 2.0 x 0.5 cm aggregate of multiple irregular and tubular cast fragments of congested and hemorrhagic orellana-brown tissue, mucus and blood, submitted in toto in a cassette labeled A. CEDS Copies To Rica Hinds [address] [place] [address] Lila Sevilla [address] [place] [address] NOTE: Unless otherwise stated, all tissue is formalin-fixed and paraffin- embedded. Some or all of the immunohistochemical tests reported herein may have been developed and their performance characteristics determined by [facility]. They have not been cleared or approved by the U.S. Food and Drug Administration (FDA). However, the FDA has determined that such clearance or approval is not necessary. This laboratory is certified under the Clinical Laboratory Improvement Amendments of 1988 (CLIA) as qualified to perform high complexity clinical laboratory testing. Electronically Signed By: Suma Delcid MD 04/12/23 1222 Patient: Audrey Cramer Age/Sex: 47/F MR#: [id number] Page 1 of 1 Assessment & Plan Assessment & Plan (1) PMB (postmenopausal bleeding): Code(s): N95.0 - Postmenopausal bleeding (2) Encounter to discuss test results: Code(s): Z71.2 - Person consulting for explanation of examination or test findings Plan Discussed EMB results: Pathology results of the endometrial biopsy showing proliferative endometrium. ? The sensitivity, specificity, positive and negative predictive value, of endometrial biopsy in detecting endometrial pathology including but not limited to: endometrial hyperplasia, cancer and other pathology. Pathological finding of proliferative endometrium in menopause is associated with a 4 fold increase in the risk of endometrial hyperplasia and malignancy compared to the finding of atrophic endometrium.?? I advised the recommended progesterone treatment options, first choice of?Levonorgestrel IUD (Mirena indicated for therapeutic use of 5 years, not the contraceptive indication of 8 years). or oral progestins as an alternative hormonal treatment. Additional follow up EMB every 3-6 months are the required recommendations for one year. Reviewed all risks and benefits of each.? The patient decided to proceed with Levonorgestrel IUD, so a more detailed discussion about it was conducted including mechanism of action, risks (uterine perforation, infection, injury to bladder, bowel, displacement, increase in the risk of breast cancer and others) benefits (decrease the risk of future endometrial hyperplasia and carcinoma of the endometrium). Return to the office for the Mirena insertion. Yearly Mammograms if indicated are recommended. She will schedule her follow up EMB appointment in 3-6 months. All questions answered and the patient verbalized understanding and agreed with the plan. Coding Level of Care Code Est Pt Level 3 (62145) Diagnoses PMB (postmenopausal bleeding) N95.0 Encounter to discuss test results Z71.2
[2023-04-19 12:57] VITALS: BP 118/70; BMI 39.5
== END 2023-04-19 13:24 | disposition home or self-care (01) ==
LOC: HO.HWS 12:41
PROVIDERS: PCP Nurse Practitioner Family; Visit Provider Advanced Practice Midwife
DX: N95.0 Postmenopausal bleeding (principal); Z71.2 Person consulting for explanation of examination or test findings
CPT/HCPCS: 99213

== ENCOUNTER → 2023-04-19 12:41 | Outpatient (BNVA) | payer OTHER, SELFPAY | PROVIDERS: PCP Nurse Practitioner Family; Visit Provider Advanced Practice Midwife | DX: Z71.2 Person consulting for explanation of examination or test findings (principal); N95.0 Postmenopausal bleeding | CPT/HCPCS: 99212 ==

== ENCOUNTER 2023-04-29 14:12 | Outpatient (AMB) | payer OTHER, SELFPAY ==
--- NOTE | 2023-04-29 14:18 | A.OFFVIS_ITS ---
Intake Vital Signs 04/29/23 14:23 Height 5 ft 2 in Weight 215 lb BMI 39.3 BP 124/80 Intake Visit Reasons: Mirena Insertion Ride Assembly Supervisor Required: Yes Ride Assembly Supervisor Language: Assistant Teacher Name: Maddie Information Interpreted: non-clinical & clinical Petroleum Production Engineer: Petroleum Production Engineer Present (Maddie) Allergies Penicillins [PCN] Adverse Reaction (Verified 04/29/23 14:23) Rash Is last menstrual period known: Yes Last menstrual period: 03/03/23 HPI HPI Comments History of Present Illness Details Patient is here for an Mirena IUD insertion due to postmenopausal bleeding, endometrial biopsy previously revealed proliferative tissue. So the plan today is to insert a Mirena for 5 years and to biopsy every 3 to 6 months for the 1st year. [facility] Medical History (Updated 04/29/23 @ 16:29 by Rica Hinds CNM) PMB (postmenopausal bleeding) Morbid obesity with BMI of 40.0-44.9, adult Encounter to establish care Surgical History H/O breast surgery History of cholecystectomy Family History Mother Fibromyalgia Hypothyroidism Father Prostate cancer Hypertension Hypothyroidism Paternal Grandmother History of breast cancer Social History Housing: House Patient Tobacco Use Status: Never used Tobacco Current occupational status: unemployed Cognitive needs: No Hearing needs: No Vision needs: No Female Reproductive History Menstrual Date of last menstrual period: 03/03/23 control method: progestin IUCD (Mirena therapeutic use inserted 04/29/23, replacement needed in 5 years) Physical Exam Vital Signs: Last Vital Signs BP 124/80 04/29/23 14:23 BMI result Body Mass Index 39.3 Office Procedures IUD Insert/Removal Details Details: The patient is here today for a Mirena reinsertion. She was counseled on the side effects including: menstrual cycle changes, pain, infection, bleeding, or expulsion. Risks of injury to the vagina, cervix, uterus, tubes, ovaries, bowel, bladder, and any adjacent tissue, resulting in nerve damage, scarring, and pain. Risks complications for the procedure that may require other test including ultrasounds, Xray, CT or MRI scan, surgery, anesthesia, blood transfusion. A urine test was completed and was negative. She was consented for the IUD insertion and has signed the consent form. All questions were answered. IUD Insertion: The patient was placed in the dorsal lithotomy position and a sterile speculum was inserted. The procedure was completed under aseptic technique. The cervix was cleansed with a Betadine solution x 3 swabs. A single toothed tenaculum was applied to the cervix for stabilization, and the uterus was sounded to 8cm. The device was inserted and released with a gentle motion. Bleeding from the tenaculum sites and the procedure were minimal. The strings were trimmed to 3cm. All of the equipment was removed and the bimanual was normal, no tip was palpable at the cervical os. The patient tolerated the procedure well and left the office in good condition. 81320-SWC Insertion Procedure code (CPT) selection complete Office Meds Mirena 21 mcg/24 hours (8 yrs) 52 mg intrauterine device Performing Provider: Rica Hinds CNM Performing Location[place] [facility] Administered by: ELIGIO Jones on 04/29/23 16:13 Dose Route Admin Location Dispensed Lot Number Expiration Date [facility] Automatic Spinning Lathe Operator 1 device intrauterine 1 device [id number] 06/11/25 [id number] [employer] Results AMB Test Urine AMB Test Urine Negative Last Edit by ELIGIO Jones on 04/29/23 14:58 Results Reviewed Results Reviewed: Laboratory Last Values [facility]st Clinic Negative 04/29/23 14:58 Assessment & Plan Assessment & Plan (1) Encounter for insertion of mirena IUD: Code(s): Z30.430 - Encounter for insertion of intrauterine contraceptive device Plan Post IUD Insertion Care: There may be some post insertion bleeding for several days that is usually light and can turn to a light brown or pink in color. Mild cramping may occur. Nothing in the vagina including: tampons, douching or intimacy for several days. You may take an over the counter mild analgesia like Tylenol or Advil (if no allergies), per the manufacturers recommendations on dosing and frequency. Follow the directions completely. Call the office if any: fever (over 100.4), flu like symptoms, abdominal pain, worsening cramping not resolved with over the counter medications, foul smelling vaginal odor, signs of infected appearing discharge, or heavy bleeding. Return to the office in 4-6 weeks for IUD recheck. Return to the office in 3 months for an endometrial biopsy. All of her questions and concerns were addressed to the best of my ability and shared decision making. She is agreeable to the plan of care. This note is constructed using voice recognition software. While every effort has been made to ensure accuracy, training development director errors may have been included. Orders: Orders AMB HCG Urine Test Today Z32.02 - Encounter for test, result negative AMB IUD Insertion/Removal - Practice Supplied Today Z30.430 - Encounter for insertion of intrauterine contraceptive device CT NG by PCR Today Z20.2 - Contact with and (suspected) exposure to infections with a predominantly sexual mode of transmission Coding Level of Care Code Procedure Only Diagnoses Encounter for insertion of mirena IUD Z30.430 CPT Codes Details - CPT: 88076-NDH Insertion ([id number])
[2023-04-29 14:23] VITALS: BP 124/80; BMI 39.3
== END 2023-04-29 15:44 | disposition home or self-care (01) ==
LOC: HO.HWS 14:12
PROVIDERS: PCP Nurse Practitioner Family; Visit Provider Advanced Practice Midwife
DX: Z30.430 Encounter for insertion of intrauterine contraceptive device (principal); Z32.02 Encounter for pregnancy test, result negative
CPT/HCPCS: 58300

== ENCOUNTER 2023-04-29 14:12 | Outpatient (REF) | payer OTHER, SELFPAY ==
[2023-04-30 06:01] LABS: CT PCR NOT DETECTED (Not Detect.); NG PCR NOT DETECTED (Not Detect.)
== END 2023-04-29 14:13 | disposition home or self-care (01) ==
LOC: HO.LNP 14:12
PROVIDERS: PCP Nurse Practitioner Family; Visit Provider Advanced Practice Midwife
DX: Z30.430 Encounter for insertion of intrauterine contraceptive device (principal); Z20.2 Contact with and (suspected) exposure to infections with a predominantly sexual mode of transmission; N95.0 Postmenopausal bleeding
CPT/HCPCS: 0353U; 58300; 81025; J7298

== ENCOUNTER 2023-04-30 14:33 | Outpatient (REF) | payer OTHER, SELFPAY ==
--- NOTE | ~2023-04-30 | US_ITS ---
EXAMINATION: Ultrasound of left neck. CLINICAL INFORMATION: Palpable left neck lump COMPARISON: None TECHNIQUE: Real-time ultrasound examination of left neck FINDINGS: Targeted ultrasound examination of left supraclavicular region over the site of palpable lump shows normal subcutaneous tissue and strap muscles. No focal mass lesion or abnormal fluid collection can be found. US/US extremity nonvascular IMPRESSION: 1. Normal targeted left supraclavicular ultrasound examination. 2. No evidence of focal mass lesion or fluid collection.
== END 2023-04-30 14:34 | disposition home or self-care (01) ==
LOC: HO.US 14:33
PROVIDERS: PCP Nurse Practitioner Family; Visit Provider Nurse Practitioner Family
DX: R22.9 Localized swelling, mass and lump, unspecified (principal)
CPT/HCPCS: 76882

== ENCOUNTER 2023-05-21 08:59 | Outpatient (AMB) | payer OTHER, SELFPAY ==
--- NOTE | 2023-05-21 09:09 | A.OFFVIS_ITS ---
Intake Vital Signs 05/21/23 09:13 Height 5 ft 2 in Weight 218 lb 4.122 oz BMI 39.9 BP 119/65 Blood Pressure Location Lt brachial Position Sitting Pulse 72 Intake Visit Reasons: follow up Intake Note: Audrey presents in the office as a follow up. CC: She states that she is not having any concerns today. Asphalt Paving Superintendent Required: Yes Asphalt Paving Superintendent Name: [id number] Mellissa Allergies Penicillins [PCN] Adverse Reaction (Verified 05/21/23 09:14) Rash HPI follow up HPI Details LAST VISIT: Dysphagia Internal hemorrhoids without complication GERD (gastroesophageal reflux disease) Hepatic steatosis Elevated LFTs Plan As mentioned above in HPI esophageal dilation performed without any problems. No esophagitis. No polyps. Patient continues to have dyspepsia. Takes omeprazole every morning. Will change to pantoprazole in the morning and famotidine and bedtime. Patient was encouraged to avoid dietary triggers and late night snacking. Staying upright for minimum 3 hours after meals discussed with patient. Script for hemorrhoids send. Lab results order by her GI provider reviewed with patient again as well as abdominal ultrasound. Hepatic steatosis. Rule out AIH, celiac, iron overload, PBC. I will see patient in 6 weeks, sooner on as needed basis. Patient will be seen by Dr. Lee afterwards. Patient is agreeable to this plan and verbalizes understanding of instructions. She was given the opportunity to ask questions and all questions answered. ? Thank you for allowing me to participate in her care Orders Orders Rast Allergen 04/09/23 K21.9 Medications New pantoprazole take one tablet half an hour before breakfast 40 mg PO DAILY 90 tabs 2RF K21.9 hydrocortisone 2.5% (Proctosol HC) 1 appl MA BID-QID PRN 30 grams 2RF hemor rhoids K64.9 famotidine 40 mg PO BEDTIME 90 tabs 3RF K21.9 TODAY'S VISIT Patient is here today for follow-up. Patient reports that she has been feeling much better. Takes pantoprazole in the morning and famotidine at bedtime. Her symptoms of acid reflux are currently suppressed. Patient denies dyspepsia, dysphagia or odynophagia. Patient reports to have a good appetite. Moving her bowels without any issues. Denies any abdominal pain or discomfort. Patient denies any melena, hematochezia, unintentional weight loss or ribbon like stools. [facility] Medical History (Updated 05/03/23 @ 19:[address] [facility]) PMB (postmenopausal bleeding) Morbid obesity with BMI of 40.0-44.9, adult Encounter to establish care Surgical History H/O breast surgery History of cholecystectomy Family History Mother Fibromyalgia Hypothyroidism Father Prostate cancer Hypertension Hypothyroidism Paternal Grandmother History of breast cancer Social History Housing: House Patient Tobacco Use Status: Never used Tobacco Current occupational status: unemployed Cognitive needs: No Hearing needs: No Vision needs: No Review of Systems Const Denies weight gain and Denies weight loss ENT Reports no additional complaints, Denies dysphagia and Denies odynophagia Card Reports no additional complaints Resp Reports no additional complaints GI Denies abdominal pain, Denies belching, Denies melena, Denies bloating, Denies change in bowel habits, Denies dysphagia, Denies excessive flatus, Denies dyspepsia, Denies heartburn, Denies diarrhea, Denies loose stools, Denies nausea, Denies odynophagia and Denies vomiting Reports no additional complaints Musc Reports no additional complaints Neuro Reports no additional complaints Psych Reports no additional complaints Endo Reports no additional complaints Physical Exam Vital Signs: Last Vital Signs Pulse 72 05/21/23 09:13 BP 119/65 05/21/23 09:13 BMI result Body Mass Index 39.9 Const General: healthy appearing, no acute distress and well developed Nutritional Appearance: obese Orientation/consciousness: patient oriented x3 HEENT Head: Yes normal to inspection, Yes normocephalic and Yes atraumatic Eyes General: appearance normal, both eyes and all related structures Resp Effort & Inspection: normal respiratory effort, able to speak in complete sentences, no tracheal deviation and symmetric chest movement Auscultation: clear to auscultation bilaterally Cardio Rate: regular rate GI Inspection: Yes normal to inspection, No distended and Yes obesity Palpation (GI): Soft to palpation, not firm, nontender and No hepatosplenomegaly present Auscultation: normal bowel sounds General: Yes no CVA tenderness Back/Spine/Pelvis Back: no CVA tenderness Skin General skin exam: elasticity normal, turgor normal and dry skin Neuro General: patient oriented x3 Psych Appearance: grossly normal Mental Status: mental status grossly normal Assessment & Plan Assessment & Plan (1) Elevated LFTs: Code(s): R79.89 - Other specified abnormal findings of blood chemistry (2) Hepatic steatosis: Code(s): K76.0 - Fatty (change of) liver, not elsewhere classified (3) Internal hemorrhoids without complication: Code(s): K64.8 - Other hemorrhoids (4) GERD (gastroesophageal reflux disease): Code(s): K21.9 - Gastro-esophageal reflux disease without esophagitis Qualifiers: Esophagitis presence: esophagitis presence not specified Qualified Code(s): K21.9 - Gastro-esophageal reflux disease without esophagitis Plan Patient will continue pantoprazole in the morning and famotidine on as needed basis at bedtime. Patient will follow-up with Dr. Lee in 6 months, sooner on as needed basis. Discussed with patient avoiding dietary triggers late night snacking. Staying upright for minimal 3 hours after meals discussed with patient. Encourage patient to try to lose weight. Low-fat food recommended and exercise. Hepatic steatosis, workup negative for AIH, celiac, iron overload, PBC. Will repeat liver enzymes in 6 months. Patient will call the office if she will have any GI concerning symptoms. She is agreeable to this plan and verbalizes understanding of instructions. She was given the opportunity to ask questions and all questions answered. Thank you for allowing me to participate in her care Orders: Orders Liver Panel 6 Months R74.01 - Elevation of levels of liver transaminase levels Coding Level of Care Code Est Pt Level 3 (39502) Diagnoses Elevated LFTs R79.89 Hepatic steatosis K76.0 Internal hemorrhoids without complication K64.8 Gastroesophageal reflux disease, unspecified whether esophagitis present K21.9 Esophagitis presence: esophagitis presence not specified Time Spent (min) 25 Comment 20 minutes spent with patient and additional 10 minutes spent reviewing her records
[2023-05-21 09:13] VITALS: BP 119/65; PULSE 72; BMI 39.9
== END 2023-05-21 09:30 | disposition home or self-care (01) ==
PROVIDERS: PCP Nurse Practitioner Family; Visit Provider Nurse Practitioner Family
DX: R79.89 Other specified abnormal findings of blood chemistry (principal); K76.0 Fatty (change of) liver, not elsewhere classified; K64.8 Other hemorrhoids; K21.9 Gastro-esophageal reflux disease without esophagitis
CPT/HCPCS: 99213

== ENCOUNTER → 2023-05-21 08:59 | Outpatient (BNVA) | payer OTHER, SELFPAY | PROVIDERS: PCP Nurse Practitioner Family; Visit Provider Nurse Practitioner Family | DX: R79.89 Other specified abnormal findings of blood chemistry (principal); K76.0 Fatty (change of) liver, not elsewhere classified; K64.8 Other hemorrhoids; K21.9 Gastro-esophageal reflux disease without esophagitis | CPT/HCPCS: 99212 ==

== ENCOUNTER 2023-05-30 14:35 | Outpatient (AMB) | payer OTHER, SELFPAY ==
[2023-05-30 14:38] VITALS: BMI 39.9
--- NOTE | 2023-05-30 14:38 | MHC.OFFVIS ---
Intake Vital Signs 05/30/23 14:38 Height 5 ft 2 in Weight 218 lb 4 oz BMI 39.9 Intake Visit Reasons: OV-right elbow pain-follow up Intake Note: Audrey is a 47 year old female who presents for follow up Right elbow pain that goes down the arm into the wrist . Patient reports that she is not doing Physical therapy but is feeling better using advil and the topical creams. She would like another prescription to go to formal physical therapy, preferably near her home in [place]. Accident Investigator Name: [id number] Allergies Penicillins [PCN] Adverse Reaction (Verified 05/30/23 14:56) Rash [facility] Medical History PMB (postmenopausal bleeding) Morbid obesity with BMI of 40.0-44.9, adult Encounter to establish care Surgical History H/O breast surgery History of cholecystectomy Family History Mother Fibromyalgia Hypothyroidism Father Prostate cancer Hypertension Hypothyroidism Paternal Grandmother History of breast cancer Social History Housing: House Patient Tobacco Use Status: Never used Tobacco Current occupational status: unemployed Cognitive needs: No Hearing needs: No Vision needs: No Physical Exam Vital Signs: BMI result Body Mass Index 39.9 Const Other: Well-nourished well-developed very friendly female awake alert and oriented x3 in no acute distress Extrem Other: Bilateral upper extremity examination shows good capillary refill, no skin lesions noted, normal sensation light touch Right elbow examination shows tenderness over her lateral epicondyle, pain with resisted wrist extension, no overlying skin lesions Assessment & Plan Assessment & Plan (1) Lateral epicondylitis, right elbow: Code(s): M77.11 - Lateral epicondylitis, right elbow Plan Ms. Vivek Pearce presents with right elbow pain due to lateral epicondylitis. I had a lengthy discussion with the patient regarding the treatment options. We will hold off on a cortisone injection at this time. I did give her a prescription to go to formal physical therapy. She will follow up with me on an as-needed basis should her symptoms not plateau at an unacceptable level over the next few months. Feel free to call me at any time should questions regarding her orthopedic management arise. I spent 20 minutes in reviewing the patient's records and imaging studies, seeing the patient and documenting in the medical record. Orders: Orders PT Evaluation and Treatment Today M77.11 - Lateral epicondylitis, right elbow Coding Level of Care Code Est Pt Level 2 (04245) Diagnoses Lateral epicondylitis, right elbow M77.11
== END 2023-05-30 15:12 | disposition home or self-care (01) ==
PROVIDERS: PCP Nurse Practitioner Family; Visit Provider Orthopaedic Surgery
DX: M77.11 Lateral epicondylitis, right elbow (principal)
CPT/HCPCS: 99213

== ENCOUNTER → 2023-05-30 14:35 | Outpatient (BNVA) | payer OTHER, SELFPAY | PROVIDERS: PCP Nurse Practitioner Family; Visit Provider Orthopaedic Surgery | DX: M77.11 Lateral epicondylitis, right elbow (principal) | CPT/HCPCS: 99212 ==

== ENCOUNTER 2023-07-11 11:15 | Outpatient (REF) | payer OTHER, SELFPAY ==
--- NOTE | ~2023-07-11 | US_ITS ---
EXAMINATION: US PELVIS COMPLETE CLINICAL INFORMATION: Follow-up uterine fibroids; the last menstrual period is not specified. COMPARISON: Pelvic ultrasound dated 03/06/2023. TECHNIQUE: Transabdominal and transvaginal imaging were performed. FINDINGS: The uterus is of normal size and echogenicity, measuring 7.1 x 3.8 x 4.4 cm. The uterus is anteverted and anteflexed. A regular homogeneous endometrium is identified measuring 0.5 cm. An intrauterine device is seen, properly situated within the endometrial canal. FIBROIDS: There are 3 fibroids seen. 1. Location: Rightward fundus, myometrial. Size: 1.9 x 1.7 x 1.6 cm. Prior: 2.1 x 2.0 x 2.6 cm. Fibroid characteristics: Heterogeneous echotexture, with shadowing calcifications. 2. Location: Rightward upper body, myometrial. Size: 0.7 x 0.6 x 0.8 cm. Prior: Not seen. Fibroid characteristics: Hypoechoic. 3. Location: Posterior upper body, myometrial. Size: 0.9 x 0.6 x 0.8 cm. Prior: 0.4 x 0.4 x 0.4 cm. Fibroid characteristics: Hypoechoic, with calcifications. Both ovaries are of normal echogenicity and show normal doppler flow. The right ovary measures 5.7 x 4.6 x 4.0 cm for a volume of 5.5 mL. The right ovary contains a 4.3 x 3.6 x 4.0 cm benign, simple functional cyst, without septation, mural nodularity or associated color Doppler flow. Previously, this measured 4.2 x 4.0 x 3.7 cm. This requires no imaging follow-up. The left ovary measures 3.0 x 1.3 x 1.5 cm for a volume of 3.1 mL. The left ovary contains a 1.6 cm benign, physiologic follicle. There is no pelvic free fluid. No adnexal mass is seen. US/US pelvic and transvaginal IMPRESSION: 1. An intrauterine device is seen, properly situated within the endometrial canal. 2. Multiple uterine fibroids are seen. 3. A 4.3 cm benign functional right ovarian cyst and a 1.6 cm benign, simple left ovarian follicle require no imaging follow-up.
== END 2023-07-11 11:16 | disposition home or self-care (01) ==
LOC: HO.US 11:15
PROVIDERS: PCP Nurse Practitioner Family; Visit Provider Advanced Practice Midwife
DX: N83.209 Unspecified ovarian cyst, unspecified side (principal); D25.9 Leiomyoma of uterus, unspecified
CPT/HCPCS: 76830; 76856

== ENCOUNTER 2023-07-24 08:17 | Outpatient (AMB) | payer OTHER, SELFPAY ==
--- NOTE | 2023-07-24 08:38 | A.OFFVIS_ITS ---
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 History of postmenopausal bleeding, had the Mirena IUD inserted April 2023. Last uterine biopsy was March revealed proliferative endometrium. She reports her bleeding in June was very heavy. History of fibroids with a new one noted on her recent scan. History of right ovarian cyst, appears stable, she does not report any right-sided pelvic pain. The right ovary contains a 4.3 x 3.6 x 4.0 cm benign, simple functional cyst, without septation, mural nodularity or associated color Doppler flow. Previously, this measured 4.2 x 4.0 x 3.7 cm. This requires no imaging follow-up. [facility] Medical History PMB (postmenopausal bleeding) Morbid obesity with BMI of 40.0-44.9, adult Encounter to establish care Surgical History H/O breast surgery History of cholecystectomy Family History Mother Fibromyalgia Hypothyroidism Father Prostate cancer Hypertension Hypothyroidism Paternal Grandmother History of breast cancer Social History Housing: House Patient Tobacco Use Status: Never used Tobacco Current occupational status: unemployed Cognitive needs: No Hearing needs: No Vision needs: No Review of Systems Const All systems reviewed & are unremarkable except as noted in HPI and below Physical Exam Vital Signs: Last Vital Signs BP 102/60 07/24/23 08:39 BMI result Body Mass Index 39.9 Const General: cooperative, healthy appearing and no acute distress Orientation/consciousness: patient oriented x3 GI Inspection: Yes normal to inspection Palpation (GI): Soft to palpation and Other GI palpation findings present (Nontender) Rectal Exam - Female: visual inspection normal General: Yes bladder normal to palpation External Female Exam: normal appearance of the urethra Speculum Exam - Vagina: normal appearance of the vagina, normal palpation and normal vaginal discharge Speculum Exam - Cervix: normal appearance of the cervix, normal palpation and Other cervical findings present (IUD strings present) Bimanual exam- vagina & uterus: normal bimanual exam, normal palpation, uterine size normal, bladder normal to palpation, normal palpation, uterine shape normal and non-tender Bimanual Exam- Adnexa, other: normal adnexae Neuro General: patient oriented x3 Office Procedures Endometrial Biopsy Details: The patient is here today for an endometrial biopsy due to AUB to rule out any pathology including atypical, hyperplasia or cancer cells of the uterus. She was counseled regarding anticipatory guidance for the procedure including the risks for pain, infection, bleeding, perforation, potential injury to the tissues may include the cervix, uterus, tubes, bladder and bowels. These injuries may include further treatment and evaluation including surgery, blood transfusions, antibiotics, hospitalizations and anesthesia. Permanent injury and scarring can occur. She was consented for the procedure, and the consent forms were signed. She is agreeable to have the procedure today. All questions were answered. Endometrial Biopsy Procedure: The patient was placed in the dorsal lithotomy position and a sterile speculum inserted. Using aseptic technique for the procedure. The cervix was cleansed with Betadine x 3 swabs. A single toothed tenaculum was placed on the cervix for stabilization and the uterus was sounded to 7 cm with a 4mm pipelle for 3 passes. Minimal bleeding was observed. The tissue sample was placed in formalin in a patient labeled container by staff assisting and sent to the pathology department for processing and interpretation. The patient tolerate the procedure well and was in good condition when leaving the department. Endometrial Biopsy Post Procedure Care: Nothing in the vagina including: tampons, douching or intimacy until all the bleeding has subsided. There may be some post procedure bleeding for several days, this bleeding is usually light and may turn to a light brown or pink color. Mild cramps may occurs. Nothing in the vaginal including: tampons, douching, or intimacy until all the bleeding has subsided. You may take an over the counter mild analgesic such as Tylenol or Advil (if no allergies) per the manufactures recommendation on dosing, frequency, and follow the directions completely. Call the office if any: fever (over 100.4), flu like symptoms, abdominal pain (worse than cramping), foul smelling, infected appearing vaginal discharge, or heavy bleeding. If indicated: Use condoms to prevent and STI's, and only after the bleeding has stopped completely. Return to the office in 2 weeks for results and plan of care. This note is constructed using voice recognition software. While every effort has been made to ensure accuracy, superintendent storage area errors may have been included. 80154-[id number] Biopsy Results AMB Test Urine AMB Test Urine Negative Last Edit by ELIGIO Jones on 08:48 Results Reviewed Results Reviewed: Laboratory Last Values [facility] Clinic Negative 07/24/23 08:48 Assessment & Plan Assessment & Plan (1) PMB (postmenopausal bleeding): Comment: Proliferative endometrium: Biopsy every 3-6 months Code(s): N95.0 - Postmenopausal bleeding (2) Fibroid: Code(s): D21.9 - Benign neoplasm of connective and other soft tissue, unspecified Plan Discussed: Ultrasound findings including ovarian cyst, and fibroids. Counseled re: Leiomyoma: common pelvic neoplasm. Differential diagnosis-may include leiomyosarcoma which is a rare uterine sarcoma 3-7/100,000, difficult to distinguish from fibroids on ultrasound from uterine sarcoma's. Unlikely any single test will have a highly positive predictive value. Hysterectomy is not recommended for sole purpose of excluding malignant neoplasm. Report any PMB. Pelvic pressure, bloating, or pain. Referral to MD if indicated for level of care. Follow-up for biopsy results in person. She is interested in a hysterectomy, versus current management. Consult appoin tment to be made with Dr. Wilburn to discuss options for treatment. All of her questions and concerns were addressed to the best of my ability and shared decision making. She is agreeable to the plan of care. This note is constructed using voice recognition software. While every effort has been made to ensure accuracy, superintendent storage area errors may have been included. Orders: Orders AMB HCG Urine Test Today Z32.02 - Encounter for test, result negative Surgical Today N95.0 - Postmenopausal bleeding Coding Level of Care Code Procedure Only Diagnoses PMB (postmenopausal bleeding) N95.0 Fibroid D21.9 CPT Codes Endometrial Biopsy - CPT: 22041-Kyvlmzhijly Biopsy ([id number]) Comment Additional modifier for discussion of fibroids and ovarian cyst
[2023-07-24 08:39] VITALS: BP 102/60; BMI 39.9
== END 2023-07-24 09:33 | disposition home or self-care (01) ==
LOC: HO.HWS 08:18
PROVIDERS: PCP Nurse Practitioner Family; Visit Provider Advanced Practice Midwife
DX: N95.0 Postmenopausal bleeding (principal); D25.9 Leiomyoma of uterus, unspecified; Z32.02 Encounter for pregnancy test, result negative
CPT/HCPCS: 58100

== ENCOUNTER 2023-07-24 08:17 | Outpatient (REF) | payer OTHER, SELFPAY | END 2023-07-24 08:18 | disposition home or self-care (01) | LOC: HO.LNP 08:17 | PROVIDERS: PCP Nurse Practitioner Family; Visit Provider Advanced Practice Midwife | DX: N95.0 Postmenopausal bleeding (principal); D21.9 Benign neoplasm of connective and other soft tissue, unspecified | CPT/HCPCS: 58100; 81025; 88305 ==

== ENCOUNTER 2023-08-09 08:37 | Outpatient (AMB) | payer OTHER, SELFPAY ==
--- NOTE | 2023-08-09 08:49 | MHC.OFFVIS ---
Intake Vital Signs 08/09/23 08:53 Height 5 ft 2 in Weight 216 lb 0.848 oz BMI 39.5 BP 120/74 Intake Visit Reasons: EMB Results/30 minutes Voicer Required: Yes Voicer Language: Rfp Writer Name: Maddie DEL VALLE Information Interpreted: non-clinical & clinical Clinical Advisor: Clinical Advisor Present Accompanied by: Self / Same As Patient Allergies Penicillins [PCN] Adverse Reaction (Verified 08/09/23 08:54) Rash Is last menstrual period known: Yes HPI HPI Comments History of Present Illness Details Patient is here today for a post EMB results appointment. History of a Mirena IUD in place for proliferative cells postmenopausal status. PFSH Medical History PMB (postmenopausal bleeding) Morbid obesity with BMI of 40.0-44.9, adult Encounter to establish care Surgical History H/O breast surgery History of cholecystectomy Family History Mother Fibromyalgia Hypothyroidism Father Prostate cancer Hypertension Hypothyroidism Paternal Grandmother History of breast cancer Social History Housing: House Patient Tobacco Use Status: Never used Tobacco Current occupational status: unemployed Cognitive needs: No Hearing needs: No Vision needs: No Review of Systems Const All systems reviewed & are unremarkable except as noted in HPI and below Endo Reports no additional complaints Physical Exam Vital Signs: Last Vital Signs BP 120/74 08/09/23 08:53 BMI result Body Mass Index 39.5 Const General: cooperative, healthy appearing and no acute distress Psych Appearance: well kempt Attitude: cooperative Thought process: Normal thought process present Results Reviewed Results Reviewed: of 1 [email or web address]#page=1&zoom=auto,-15,243 Surgical Pathology [id number] Name: Audrey Cramer Age/Sex: 47/F Attending: Rica Hinds CNM : 1975 Submitted by: Rica Hinds CNM Copies to: Lila Sevilla MR #: [id number] Status: DEP REF Collected: 07/24/23 Location: [facility] Received: 07/24/23 Diagnosis Endometrium, biopsy: Fragments of benign endometrium with breakdown and pseudodecidual change consistent with exogenous progestin; organizing clot/fibrinoid material; no atypia identified. Clinical History PMB Microscopic Description Microscopic sections reviewed. Material Received EMB Gross Description Received in formalin labeled ?EMB? are fragments of red-pink and pink orellana soft tissue mixed with mucus and clotted blood forming an aggregate measuring 2.5 x 2.0 x 0.3 cm in greatest dimension which is wrapped in lens paper and entirely submitted for microscopic examination, multiple pieces in cassette [facility] Copies To Rica Hinds [address] [place] [address] Lila Sevilla [address] [place] [address] NOTE: Unless otherwise stated, all tissue is formalin-fixed and paraffin-embedded. Some or all of the immunohistochemical tests reported herein may have been developed and their performance characteristics determined by [facility]. They have not been cleared or approved by the U.S. Food and Drug Administration (FDA). However, the FDA has determined that such clearance or approval is not necessary. This laboratory is certified under the Clinical Laboratory Improvement Amendments of 1988 (CLIA) as qualified to perform high complexity clinical laboratory testing. Electronically Signed By: Manny Hodges MD 07/26/23 2797 Patient: Audrey Cramer Age/Sex: 47/F MR#: [id number] Page 1 of 1 Assessment & Plan Assessment & Plan (1) Encounter to discuss test results: Code(s): Z71.2 - Person consulting for explanation of examination or test findings (2) History of postmenopausal bleeding: Code(s): Z87.42 - Personal history of other diseases of the female genital tract Plan Discussed: Endometrial biopsy results are negative. Patient had originally a follow up for hysteroscopy with Dr. Wilburn, reviewed her plan of care with the doctor there was no indication at this time to have a hysteroscopy, recommendations as a follow up endometrial biopsy in November proximally 4 months from now. All of her questions and concerns were addressed to the best of my ability and shared decision making. She is agreeable to the plan of care. This note is constructed using voice recognition software. While every effort has been made to ensure accuracy, flooring helper errors may have been included. Coding Level of Care Code Est Pt Level 3 (96925) Diagnoses Encounter to discuss test results Z71.2 History of postmenopausal bleeding Z87.42
[2023-08-09 08:53] VITALS: BP 120/74; BMI 39.5
== END 2023-08-09 09:02 | disposition home or self-care (01) ==
LOC: HO.HWS 08:37
PROVIDERS: PCP Nurse Practitioner Family; Visit Provider Advanced Practice Midwife
DX: Z71.2 Person consulting for explanation of examination or test findings (principal); Z87.42 Personal history of other diseases of the female genital tract
CPT/HCPCS: 99213

== ENCOUNTER → 2023-08-09 08:37 | Outpatient (BNVA) | payer OTHER, SELFPAY | PROVIDERS: PCP Nurse Practitioner Family; Visit Provider Advanced Practice Midwife | DX: Z87.42 Personal history of other diseases of the female genital tract (principal); Z71.2 Person consulting for explanation of examination or test findings; Z97.5 Presence of (intrauterine) contraceptive device | CPT/HCPCS: 99212 ==

== ENCOUNTER 2023-08-17 09:57 | Emergency (ER) | payer OTHER, SELFPAY ==
--- NOTE | ~2023-08-17 | XR_ITS ---
EXAMINATION: XR CHEST CLINICAL INFORMATION: Cough COMPARISON: None available. TECHNIQUE: Frontal view of the chest was obtained. FINDINGS: The cardiac silhouette is normal. There is mild diffuse bronchial wall thickening. There are no areas of consolidation. There are no pleural effusions or pneumothoraces. The bones and soft tissues are unremarkable for the patient's age. XR/XR chest 1V IMPRESSION: Bronchial wall thickening may be infectious and/or inflammatory in etiology.
[2023-08-17 10:01] VITALS: BP 144/60; PULSE 91; RESP 18; TEMP 36.3; O2SAT 96; BMI 39.5
--- NOTE | 2023-08-17 10:52 | ED_ITS ---
HPI - URI/Sore Throat General Chief Complaint: Upper Respiratory Symptoms Stated Complaint: Cold, Body aches Time Seen by Provider: 08/17/23 10:19 Source: patient Mode of arrival: ambulatory Limitations: no limitations History of Present Illness HPI Narrative: This is a 47-year-old female presenting with fatigue, malaise, myalgias, dry cough, sore throat, diffuse headaches the past week not improving. Patient re ports that there are multiple sick contacts at home with same symptoms. She reports she has been taking bdfq-lun-eccqssf medicine as well as amoxicillin that she found out her house. Patient denies chest pain, shortness breath, nausea, vomiting, abdominal pain, diarrhea, vision changes, dizziness, weakness. NIH stroke scale 0 Related Data Previous Rx's ?Medication ?Instructions ?Recorded cholecalciferol (vitamin D3) 50 50 mcg PO DAILY #90 tabs 10/25/22 mcg (2,000 unit) tablet famotidine 40 mg tablet 40 mg PO BEDTIME #90 tabs 04/09/23 hydrocortisone 2.5 % topical cream 1 appl [place] BID-QID PRN hemorrhoids 04/09/23 with perineal applicator #30 grams (Proctosol HC) pantoprazole 40 mg tablet,delayed 40 mg PO DAILY #90 tabs 04/09/23 release albuterol sulfate 90 mcg/actuation 2 inh inhalation Q4-6H PRN 08/17/23 breath activated powder inhaler shortness of breath or wheezing #1 ea doxycycline hyclate 100 mg capsule 100 mg PO BID 10 days #20 caps 08/17/23 prednisone 20 mg tablet 40 mg (2 x 20 mg) PO DAILY 5 days 08/17/23 #10 tabs Allergies Allergy/AdvReac Type Severity Reaction Status Date / Time Penicillins [PCN] AdvReac Rash Verified 08/17/23 10:04 Review of Systems Review of Systems: Yes all other systems are reviewed and are negative PMFSH Past Medical History Attestation statement: The following information was validated with the patient. Source: old records reviewed and nursing notes reviewed Medical History PMB (postmenopausal bleeding) Morbid obesity with BMI of 40.0-44.9, adult Encounter to establish care Surgical History H/O breast surgery History of cholecystectomy Family History Family History Mother Fibromyalgia Hypothyroidism Father Prostate cancer Hypertension Hypothyroidism Paternal Grandmother History of breast cancer Social History Social History Housing: House Patient Tobacco Use Status: Never used Tobacco Smoked in Last 30 Days: No Use of substances other than those prescribed or required for medical reasons: No Advance Directives: No Advance Directives Information Provided: No Current occupational status: unemployed Cognitive needs: No Hearing needs: No Vision needs: No Physical Exam Vital Signs: Vital Signs: Last Vital Signs Temp 98 F 08/17/23 11:42 Pulse 90 08/17/23 11:42 Resp 18 08/17/23 11:42 BP 140/95 H 08/17/23 11:42 Pulse Ox 98 08/17/23 11:42 O2 Del Method Room Air 08/17/23 11:42 BMI result Body Mass Index 39.5 vss Appearance: Alert.? Oriented X3.? No acute distress.? Head: Normocephalic, atraumatic, no step-offs or deformities Eyes: Pupils equal, round and reactive to light.? ENT: Pharynx normal.? Speaking in full sentences controlling secretions well. Neck: Normal inspection.? Neck supple.? CVS: Normal heart rate and rhythm.? Pulses normal.? Respiratory: No respiratory distress.? Breath sounds normal.? Abdomen: Soft and nontender.? Skin: Skin warm and dry.? Normal skin color.? Normal skin turgor.? Extremities: No lower extremity edema.? No calf ttp. 5/5 strength to bilateral upper and lower extremities Neuro: Oriented X 3.? No motor deficit.? No sensory deficit. CN 2-12 intact Course Reevaluation(s) Reevaluation #1: Flu, COVID, RSV negative. Strep pending. Chest x-ray pending. Time: 11:15 Reevaluation #2: CXR still pending. Will treat for bronchitis. Time: 11:57 Reevaluation #3: Chest x-ray bronchial wall thickening may be infectious or inflammatory in etiology. Educated patient on diagnosis and treatment plan, answered all question, patient verbalizes understanding. At this time patient will be discharged home, advised to return with new or worsening symptoms. Educated on worrisome signs and symptoms and when to return. At this time I feel comfortable discharge home. Medical Decision Making Medical Decision Making [facility] Narrative: 1045 47-year-old female presents with viral symptoms for the past week not improving. Multiple sick contacts. Physical exam benign. History and physical exam concerning for flu versus COVID versus RSV. Unlikely PE, ACS, respiratory distress, bacterial pharyngitis, epiglottitis, peritonsillar or retropharyngeal abscess. No signs of threat to airway. Plan at this time viral testing, x-ray ordered from triage. Differential Diagnosis Differential Diagnoses: The differential diagnosis associated with the presentation includes History and physical exam concerning for flu versus COVID versus RSV. Unlikely PE, ACS, respiratory distress, bacterial pharyngitis, epiglottitis, peritonsillar or retropharyngeal abscess. No signs of threat to airway. Admission/Observation Consideration of admission/observation: Escalation of care including admission/observation considered Possible Lab Data [facility] Lab Attestation statement: I reviewed the patient's lab results. Labs: Lab Results 08/17/23 Range/Units 10:13 Influenza Type A (PCR) NEGATIVE (Negative) Influenza Type B (PCR) NEGATIVE (Negative) RSV RNA Qual (PCR) NEGATIVE (Negative) SARS-CoV-2 RNA (RT-PCR) NEGATIVE (Negative) S. pyogenes GrpA SHANIQUA Negative (Negative) Independent Interpretation I performed an independent interpretation of an: Plain X-Ray (XR/XR chest 1V IMPRESSION: Bronchial wall thickening may be infectious and/or inflammatory in etiology. ) Radiology Impression Discussion of test interpretation with radiology: I have reviewed the radiologist's reading. Critical Care Time Critical Care Time Critical Care Time: No Discharge Plan Discharge Clinical Impression: Bronchitis Patient Disposition: Home, Self-Care Instructions: Acute Bronchitis (ED) Additional Instructions: Take your medications as prescribed. If you were prescribed antibiotics today, it is important that you take your medication to their entirety, do not skip any doses, do not finish them early. Follow-up with your primary care provider this week. Return to the emergency department with new or worsening symptoms. Such as fevers, chills, chest pain, shortness of breath, nausea, vomiting, dizziness, headache, vision changes, lethargy In case of emergency call 911 Flu, COVID, RSV negative. Prescriptions: New prednisone 20 mg tablet 40 mg PO DAILY 5 Days Qty: 10 0RF albuterol sulfate 90 mcg/actuation aerosol powdr breath activated 2 inh inhalation Q4-6H PRN (Reason: shortness of breath or wheezing) Qty: 1 0RF doxycycline hyclate 100 mg capsule 100 mg PO BID 10 Days Qty: 20 0RF No Action cholecalciferol (vitamin D3) 50 mcg (2,000 unit) tablet 50 mcg PO DAILY Qty: 90 0RF pantoprazole 40 mg tablet,delayed release (DR/EC) 40 mg PO DAILY Qty: 90 2RF Rx Instructions: take one tablet half an hour before breakfast hydrocortisone [Proctosol HC] 2.5 % cream with perineal applicator 1 appl KY BID-QID PRN (Reason: hemorrhoids) Qty: 30 2RF famotidine 40 mg tablet 40 mg PO BEDTIME Qty: 90 3RF Referrals: [facility] [Primary Care Provider] - 2 days Stand Alone Forms: Work/School Release Interventions: ED Discharge Assessment Last Done: 08/17/23 11:42 Discharge Date/Time: 08/17/23 11:42 Print Language: Citizen [place]
[2023-08-17 11:06] LABS: Influenza A PCR NEGATIVE (Negative); Influenza B PCR NEGATIVE (Negative); Resp Syncy Virus RNA Qual PCR NEGATIVE (Negative); SARS COV2 PCR INHOUSE NEGATIVE (Negative)
[2023-08-17 11:23] LABS: IDNOW Serial# 6674DD1D; Strep A Nucleic Acid Negative (Negative)
[2023-08-17 11:40] VITALS: BP 140/95; PULSE 94; RESP 18; O2SAT 98
[2023-08-17 11:42] VITALS: BP 140/95; PULSE 90; RESP 18; TEMP 36.6; O2SAT 98
== END 2023-08-17 11:42 | disposition home or self-care (01) ==
PROVIDERS: Emergency Provider Student in an Organized Health Care Education/Training Program
DX: J20.9 Acute bronchitis, unspecified (principal); J02.9 Acute pharyngitis, unspecified; M79.10 Myalgia, unspecified site; R05.9 Cough, unspecified; Z11.52 Encounter for screening for COVID-19; Z20.822 Contact with and (suspected) exposure to COVID-19
CPT/HCPCS: 0241U; 71045; 87651; 99283; 99284

== ENCOUNTER 2023-08-23 12:30 | Outpatient (AMB) | payer OTHER, SELFPAY ==
[2023-08-23 12:40] VITALS: BP 112/80; PULSE 94; TEMP 36.4; O2SAT 95; BMI 39.1
--- NOTE | 2023-08-23 12:40 | AM.OFFWIN_ITS ---
Intake Vital Signs 08/23/23 12:40 Height 5 ft 2 in Weight 214 lb BMI 39.1 BP 112/80 Blood Pressure Location Lt brachial Position Sitting Pulse 94 Pulse Source Pulse Oximeter Temp 97.5 F Temp Source Temporal Artery Scan Pulse Oximetry (%) 95 Oxygen Delivery Method Room Air Intake Visit Reasons: EP Sore Throat, Ear Pain & headache (lobby masked) Intake Note: pt is here today for sore throat ear pain headache started 2 weeks ago Patient Tobacco Use Status: Never used Tobacco Allergies Penicillins [PCN] Adverse Reaction (Verified 08/23/23 12:44) Rash Medication List - Last Reconciled 08/23/23 by MUNIR Fuentes albuterol sulfate 90 mcg/actuation 2 inhalations inhalation Q4-6H PRN cholecalciferol (vitamin D3) 50 mcg PO DAILY doxycycline hyclate 100 mg PO BID 10 days famotidine 40 mg PO BEDTIME hydrocortisone 2.5% (Proctosol HC) 1 appl [place] BID-QID PRN pantoprazole 40 mg PO DAILY prednisone prednisone 5 mg: take 8 tablets (40 mg) on Day 1; 7 tablets (35 mg) on Day 2; then decrease by 1 tablet every day until finished PO Do you need a note to return to daycare/school/sports/work: No HPI HPI Comments History of Present Illness Details 47-year-old female comes in today compla ining of continued cough wheezing sore throat that has been happening for the last 2 weeks. She was seen 5 days ago put on antibiotic which is not improving PFSH Medical History PMB (postmenopausal bleeding) Morbid obesity with BMI of 40.0-44.9, adult Encounter to establish care Surgical History H/O breast surgery History of cholecystectomy Family History Mother Fibromyalgia Hypothyroidism Father Prostate cancer Hypertension Hypothyroidism Paternal Grandmother History of breast cancer Social History Housing: House Patient Tobacco Use Status: Never used Tobacco Current occupational status: unemployed Cognitive needs: No Hearing needs: No Vision needs: No Review of Systems Const All systems reviewed & are unremarkable except as noted in HPI and below Eyes Reports no additional complaints ENT Reports nasal congestion and Reports sinus pressure Card Reports no additional complaints Resp Reports cough GI Reports no additional complaints Physical Exam Vital Signs: Last Vital Signs Temp 97.5 F 08/23/23 12:40 Pulse 94 08/23/23 12:40 BP 112/80 08/23/23 12:40 Pulse Ox 95 08/23/23 12:40 Oxygen Delivery Method Room Air 08/23/23 12:40 BMI result Body Mass Index 39.1 Const General: healthy appearing and no acute distress HEENT Head: Yes normal to inspection, Yes normocephalic and Yes atraumatic Ears: hearing grossly normal bilaterally, external ears normal, TM's normal bilaterally, TM normal on the right, TM normal on the left and EAC's normal Throat: Yes posterior oropharynx normal Resp Effort & Inspection: normal respiratory effort Auscultation: wheezes Cardio Rate: regular rate Rhythm: regular rhythm Heart sounds: S1 normal heart sound present and S2 normal heart sound present Results AMB Rapid Strep AMB Rapid Strep Negative Last Edit by Eliana Burton MA on 08/23/23 13:42 Results Reviewed Results Reviewed: Chest x-ray taken today and was unremarkable and this was reviewed with the patient Assessment & Plan Assessment & Plan (1) Asthmatic bronchitis: Code(s): J45.909 - Unspecified asthma, uncomplicated Plan: The patient will continue her doxycycline. I also added prednisone with Dosepak dosing follow up with her PCP Plan See plan Medications: New prednisone prednisone 5 mg: take 8 tablets (40 mg) on Day 1; 7 tablets (35 mg) on Day 2; then decrease by 1 tablet every day until finished PO 21 ea 0RF Coding Level of Care Code Est Pt Level 3 (46093) Diagnoses Asthmatic bronchitis J45.909
== END 2023-08-23 16:14 | disposition home or self-care (01) ==
PROVIDERS: Visit Provider Physician Assistant Medical
DX: J45.909 Unspecified asthma, uncomplicated (principal)
CPT/HCPCS: 99213

== ENCOUNTER 2023-09-13 09:06 | Outpatient (AMB) | payer OTHER, SELFPAY ==
--- NOTE | 2023-09-13 09:12 | A.OFFPC_ITS ---
Vital Signs 09/13/23 09:18 Height 5 ft 2 in Weight 217 lb 2 oz BMI 39.7 BP 108/80 Blood Pressure Location Lt brachial Position Sitting Respiration 16 Pulse 76 Pulse Source Pulse Oximeter Temp 98.2 F Temp Source Oral Pulse Oximetry (%) 96 Oxygen Delivery Method Room Air Intake Visit Reasons: Trans. from [facility] Intake Note: New patient visit Account Management Assistant Required: Yes Is last menstrual period known: Yes Last menstrual period: 07/03/23 Patient : No Allergies Penicillins [PCN] Adverse Reaction (Verified 09/13/23 09:48) Rash Medication List - Last Reconciled 09/13/23 by MARLON Ash B-complex with vitamin C 1 tab PO DAILY cholecalciferol (vitamin D3) 50 mcg PO DAILY famotidine 40 mg PO BEDTIME hydrocortisone 2.5% (Proctosol HC) 1 appl HI BID-QID PRN hydroxyzine HCl 25 mg PO BEDTIME PRN pantoprazole 40 mg PO DAILY Tobacco use date assessed: 04/02/23 Dental Screening Dental Screen Date: 09/13/23 Did you have a dental visit in the last 12 months?: Yes Did you have a dental problem in the last 6 months where you did not have access to dental care?: No Was dental information given to patient?: Patient has dentist HPI HPI Comments History of Present Illness Details 47-YEAR-OLD Polish speaking FEMALE WITH OBESITY, HEPATIC STEATOSIS RIGHT RENAL CYST, VITAMIN-D DEFICIENCY, PROLIFERATIVE ENDOMETRIUM WITH BIOPSY EVERY 3-6 MONTHS, asthma, GERD Status post breast surgery, cholecystectomy Specialists [facility] Health maintenance Mammo 11/09/22 Colon UTD Tdap 2013 Pap 04/11/23 Account Management Assistant: [id number] Here today to est care for a CPE insomnia - using melatonin, sleeping for short periods only and then waking. 10mg. chronic daily headaches and facial twitch -- would like to be referred to [facility] - routine care and for BX. She is not happy there. Advised her to f/u with them directly regarding her concerns. [facility] Medical History (Updated 09/13/23 @ 10:07 by AMRLON Ash) Right elbow pain Left knee pain Lateral epicondylitis, right elbow PMB (postmenopausal bleeding) Morbid obesity with BMI of 40.0-44.9, adult Surgical History (Updated 09/13/23 @ 09:17 by Ellen Valera CMA) Hx of colonoscopy H/O breast surgery History of cholecystectomy Family History Mother Fibromyalgia Hypothyroidism Father Prostate cancer Hypertension Hypothyroidism Paternal Grandmother History of breast cancer Social History (Updated 09/13/23 @ 09:17 by Ellen Valera CMA) Housing: House Patient Tobacco Use Status: Never used Tobacco e-Cigarette/Vaping Use: Never Used service: No Current occupational status: unemployed Cognitive needs: No Hearing needs: No Vision needs: No Female Reproductive History Menstrual Date of last menstrual period: 07/03/23 Questionnaire PHQ-9 Over the last 2 weeks, how often have you been bothered by any of the following problems? 1. Little interest or pleasure in doing things: not at all 2. Feeling down, depressed, or hopeless: not at all 3. Trouble falling or staying asleep, or sleeping too much: nearly every day 4. Feeling tired or having little energy: nearly every day 5. Poor appetite or overeating: not at all 6. Feeling bad about yourself - or that you are a failure or have let yourself or your family down: several days (feels sad sometimes ) 7. Trouble concentrating on things, such as reading the newspaper or watching television: several days 8. Moving or speaking so slowly that other people could have noticed. Or the opposite - being so fidgety or restless that you have been moving around a lot more than usual: not at all 9. Thoughts that you would be better off or of hurting yourself in some way: not at all Total score: 8 Depression Screening Interpretation: Positive Depression Screening Follow-up: Existing condition Depression Screening Done: Yes 10479 - PHQ-9 Billing: Yes Source: Developed by Drs. Manuelito Triplett, Penny Millan, Segundo Gomes and colleagues, with an educational kenji from [employer]. Thrive Questionnaire Date Thrive assessed: 10/10/22 I am a: Patient What is your living situation today?: I have a steady place to live Within the past 12 months, did the food you bought not last and you didn't have the money to get more?: Never true Within the past 12 months, did you worry whether your food would run out before you got money to buy more?: Never true Do you have trouble paying for medicines?: No Do you have trouble getting transportation to medical appointments?: No Do you have trouble paying your heating and electricity bill?: No Do you have trouble taking care of your child, family member or friend?: No Do you have trouble with day-to-day activities such as bathing, preparing meals, shopping, managing finances, etc.?: No Are you currently unemployed and looking for a job?: No Are you interested in more education?: No Please select the resources that you would like help with: None Currently or been in a relationship where the following occur: no concerns reported THRIVE Score: 0 AUDIT C Alcohol Use Questionnaire (AUDIT-C) 1. How often do you have a drink containing alcohol?: Never 3. How often do you have six or more drinks on one occasion?: Never Total Score: 0 Score Reviewed/Action Taken: Yes RAMEZ-7 AMB Questionnaire RAMEZ-7 Date RAMEZ - 7 assessed: 01/11/23 Feeling nervous, anxious, or on edge: 0 = Not at all Not being able to stop or control worryin = Not at all Worrying too much about different things: 0 = Not at all Trouble relaxin = Not at all Being so restless that it is hard to sit still: 0 = Not at all Becoming easily annoyed or irritable: 0 = Not at all Feeling afraid as if something awful might happen: 0 = Not at all Total RAMEZ-7 score (0-4 normal; 5-9 mild; 10-14 moderate; 15-21 severe): 0 Source: Developed by Drs. Manuelito Triplett, Penny Milaln, Segundo Gomes and colleagues, with an educational kenji from [employer]. RAMEZ-7 Assessment Billing RAMEZ-7 Assessment Tool: RAMEZ-7 Assessment 64682 ACT Questionnaire In the past 4 weeks, how much of the time did your asthma keep you from getting as much done at work, school or at home?: None of the time During the past 4 weeks, how often have you had shortness of breath?: Not at all During the past 4 weeks, how often did your asthma symptoms wake you up at night or earlier than usual in the morning?: Not at all During the past 4 weeks, how often have you had to use your rescue inhaler or nebulizer medication?: Not at all How would you rate your asthma control during the past 4 weeks?: Well controlled ACT Interpretation: Negative Score: 24 Review of Systems Const Details: Constitutional: Denies fever. Skin: Denies rash. Eye: Denies eye pain. ENMT: Denies sore throat and nasal congestion. Respiratory: Denies shortness of breath and cough. Gastrointestinal: Denies nausea, vomiting or abdominal pain. Cardiovascular: Denies chest pain and syncope. Genitourinary: Denies dysuria. Musculoskeletal: Denies back pain and extremity pain. Neurologic: Denies confusion, and weakness. Psychiatric: Denies suicidal thoughts and substance abuse. Allergy/ Immunologic: Denies impaired immunity. Physical exam (Primary Care) Vital Signs: Last Vital Signs Temp 98.2 F 09/13/23 09:18 Pulse 76 09/13/23 09:18 Resp 16 09/13/23 09:18 BP 108/80 09/13/23 09:18 Pulse Ox 96 09/13/23 09:18 Oxygen Delivery Method Room Air 09/13/23 09:18 BMI result Body Mass Index 39.7 BMI Assessment/Plan discussion: High BMI High, discussed plan: lifestyle Tobacco/Smoking Status: Tobacco use Status Tobacco use date assessed 04/02/23 09/13/23 09:23 Patient Tobacco Use Status Never used Tobacco 09/13/23 09:23 e-Cigarette/Vaping Use Never Used 09/13/23 09:23 PHQ-9: PHQ-9 Score PHQ-9: Total score 8 09/13/23 10:09 Depression Screening Interpretation: Positive Depression Screening Follow-up: Existing condition Thrive Assessment: Date of Thrive Assessment Date Thrive assessed 10/10/22 09/13/23 09:23 Currently or been in a relationship where the following occur: no concerns reported Const Other: General: Well developed, well nourished, in no acute distress. Appears stated age. Head: Normocephalic, atraumatic. Eyes: Pupils are equal, round and reactive to light and accommodation. Conjunctivae are clear. Vision grossly normal. Ears: TMs clear AU, EACS WNL Nose: Patent, without discharge. Mouth: There are no ulcers or lesions noted. No inflammation, no post nasal drip, no plaques nor exudates. Neck: Supple, no adenopathy or thyromegaly. Lungs: Clear to auscultation bilaterally. No rales, rhonchi or wheeze noted. Good air flow in all hernandez. Heart: Regular rate and rhythm. No murmurs, click, rubs or gallops are noted. Abdomen: Bowel sounds present in all quadrants. The abdomen is soft, nontender, with no masses or organomegaly noted. No hernias are noted. Musculoskeletal: Joints are nontender, without swelling, redness, or effusions. Range of motion is observed to be normal. Pulses: Peripheral pulses are equal and palpable bilaterally. Extremities: No clubbing, cyanosis nor edema is noted. Neurologic: Gait and station normal. Cranial Nerves 2-12 intact. Motor strength grossly symmetrical and intact. No sensory loss. Balance normal. Skin: No rashes, ulcers, or lesions noted. Turgor is good. Skin color is good. Hair and nails are without abnormalities. Psych: Normal eye contact, affect and mood appropriate, and normal interactions. Patient is alert and appropriate to context. Extremities: No clubbing, cyanosis or edema. Assessment and Plan Assessment & Plan (1) Adult general medical exam: Code(s): Z00.00 - Encounter for general adult medical examination without abnormal findings (2) Severe obesity (BMI 35.0-39.9) with comorbidity: Comment: With asthma and fatty liver lifestyle modifications encouraged Code(s): E66.01 - Morbid (severe) obesity due to excess calories (3) Mild intermittent asthma in adult without complication: Comment: Not currently on any medications. Well controlled. Code(s): J45.20 - Mild intermittent asthma, uncomplicated (4) Hepatic steatosis: Comment: Followed by GI. We will update LFTs today. Code(s): K76.0 - Fatty (change of) liver, not elsewhere classified (5) Renal cyst, right: Comment: Managed by Urology. Code(s): N28.1 - Cyst of kidney, acquired (6) Low vitamin D level: Comment: Currently maintained on a vitamin-D supplement. We will update vitamin-D labs today. Code(s): R79.89 - Other specified abnormal findings of blood chemistry (7) Headache: Comment: Patient requests to be referred to Neurology. Neurology placed today. Code(s): R51.9 - Headache, unspecified Qualifiers: Headache type: cervicogenic headache Qualified Code(s): G44.86 - Cervicogenic headache (8) Insomnia: Comment: Sleep maintenance insomnia. Has tried melatonin 10 mg without relief. Advised to stop melatonin and start hydroxyzine 25 mg p.o. q.h.s. p.r.n.. Code(s): G47.00 - Insomnia, unspecified Qualifiers: Insomnia type: primary Qualified Code(s): F51.01 - Primary insomnia Orders: Orders Hemoglobin A1c Today Z00.00 - Encounter for general adult medical examination without abnormal findings TSH reflex Free T4 Today Z00.00 - Encounter for general adult medical examination without abnormal findings Vitamin D 1,25 dihydroxy Today Z00.00 - Encounter for general adult medical examination without abnormal findings Comprehensive [place]. Panel Fast Today Z00.00 - Encounter for general adult medical examination without abnormal findings Lipid Panel Today Z00.00 - Encounter for general adult medical examination without abnormal findings Microalbumin, Random (w Creat) Today Z00.00 - Encounter for general adult medical examination without abnormal findings Vitamin B12 and Folate Today Z00.00 - Encounter for general adult medical examination without abnormal findings Complete Blood Count no Diff Today Z00.00 - Encounter for general adult medical examination without abnormal findings IRON PROFILE Today Z00.00 - Encounter for general adult medical examination without abnormal findings Referrals Neurology Referral R25.3 - Fasciculation, R51.9 - Headache, unspecified Medications: New hydroxyzine HCl 25 mg PO BEDTIME PRN 30 tabs 0RF insomnia hydroxyzine HCl 25 mg PO BEDTIME PRN 30 tabs 3RF insomnia Patient Instructions: Return to office in 1 year sooner for physical exam, if you need anything Health screenings for women You should visit your health care provider from time to time, even if you are healthy. The purpose of these visits is to: Screen for medical issues Assess your risk for future medical problems Encourage a healthy lifestyle Update vaccinations and other preventive care services Help you get to know your provider in case of an illness Information Even if you feel fine, you should still see your provider for regular checkups. These visits can help you avoid problems in the future. For example, the only way to find out if you have high blood pressure is to have it checked regularly. High blood sugar and high cholesterol levels also may not have any symptoms in the early stages. A simple blood test can check for these conditions. There are specific times when you should see your provider or receive specific health screenings. The [place] Preventive Services Task Force publishes a list of recommended screenings. Below are screening guidelines for women ages 18 to 39. BLOOD PRESSURE SCREENING Your blood pressure should be checked at least once every 3 to 5 years if: Your blood pressure is in the normal range (top number less than 120 mm Hg and bottom number less than 80 mm Hg) You don't have risk factors for high blood pressure Ask your provider if you need your blood pressure checked more often if: The top number is 120 to 129 mm Hg or the bottom number is 70 to 79 mm Hg You have diabetes, heart disease, kidney problems, are overweight, or have certain other health conditions You have a first-degree relative with high blood pressure You are Black You had high blood pressure during a If the top number is 130 mm Hg or greater or the bottom number is 80 mm Hg or greater, this is considered stage 1 hypertension. Schedule an appointment with your provider to learn how you can reduce your blood pressure. Watch for blood pressure screenings in your area. Ask your provider if you can stop in to have your blood pressure checked. BREAST CANCER SCREENING Experts do not agree about the benefits of breast self-exams in finding breast cancer or saving lives. Talk to your provider about what is best for you. A screening mammogram is not recommended for most women under age 40. Your provider may discuss and recommend mammograms, MRI scans, or ultrasounds if you have an increased risk for breast cancer, such as: A mother or sister who had breast cancer at a young age (most often starting screening earlier than the age the close relative was diagnosed) You carry a high-risk genetic marker CERVICAL CANCER SCREENING Cervical cancer screening should start at age 21 years unless your provider advises otherwise. After the first test: Women ages 21 through 29 should have a Pap test every 3 years. Exoprts do not agree on whether HPV testing is recommended for this age group. Women ages 30 through 65 should be screened with either a Pap test every 3 years or the HPV test every 5 years or both tests every 5 years (called cotesting ). Women who have been treated for precancer (cervical dysplasia) should continue to have Pap tests for 20 years after treatment or until age 65, whichever is longer. If you have had your uterus and cervix removed (total hysterectomy), and you have not been diagnosed with cervical cancer or precancer (high grade cervical neoplasia), you do not need cervical cancer screening. CHOLESTEROL SCREENING Cholesterol screening should begin at: Age 45 for women with no known risk factors for coronary heart disease Age 20 for women with known risk factors for coronary heart disease Repeat cholesterol screening should take place: Every 5 years for women with normal cholesterol levels More often if changes occur in lifestyle (including weight gain and diet) More often if you have diabetes, heart disease, kidney problems, or certain other conditions DIABETES SCREENING You should be screened for diabetes starting at age 35 and then repeated every 3 years if you have no risk factors for diabetes. Screening may need to start earlier and be repeated more often if you have other risk factors for diabetes, such as: You have a first degree relative with diabetes. You are overweight or have obesity. You have high blood pressure, prediabetes, or a history of heart disease. Screening for diabetes should be done if you are planning to become and you are overweight and have other risk factors such as high blood pressure. DENTAL EXAM Go to the dentist once or twice every year for an exam and cleaning. Your dentist will evaluate if you need more frequent visits. EYE EXAM Have an eye exam every 5 to 10 years before age 40. If you have vision problems, have an eye exam every 2 years or more often if recommended by your provider. You should have an eye exam that includes an examination of your retina (back of your eye) at least every year if you have diabetes. IMMUNIZATIONS Commonly needed vaccines include: Flu shot: get one every year. COVID-19 vaccine: ask your provider what is best for you. Tetanus-diphtheria and acellular pertussis (Tdap) vaccine: have one at or after age 19 as one of your tetanus-diphtheria vaccines if you did not receive it as an adolescent. Tetanus-diphtheria: have a booster (or Tdap) every 10 years. Varicella vaccine: receive 2 doses if you never had chickenpox or the varicella vaccine. Hepatitis B vaccine: receive 2, 3, or 4 doses, depending on your exact circumstances. Measles, mumps, and rubella (MMR) vaccine: receive 1 to 2 doses if you are not already immune to MMR. Your provider can tell you if you are immune. Ask your provider about the human papillomavirus (HPV) vaccine if: You have not received the HPV vaccine in the past You have not completed the full vaccine series (you should catch up on this shot) Ask your provider if you should receive other immunizations if you have certain health problems that increase your risk for some diseases such as pneumonia. INFECTIOUS DISEASE SCREENING Women who are sexually active should be screened for chlamydia and gonorrhea up until age 25. Women 25 years and older should be screened for chlamydia and gonorrhea if at high risk. Screening for hepatitis C: All adults ages 18 to 79 should get a one-time test for hepatitis C. people should be screened at every . Screening for human immunodeficiency virus (HIV): All people ages 15 to 65 should get a one-time test for HIV. Depending on your lifestyle and medical history, you may also need to be screened for infections such as syphilis and HIV, as well as other infections. PHYSICAL EXAM All adults should visit their provider from time to time, even if they are healthy. The purpose of these visits is to: Screen for disease Assess your risk of future medical problems Encourage a healthy lifestyle Update your vaccinations and other preventive care services Maintain a relationship with a provider in case of an illness Your height, weight, and BMI should be checked at every exam. During your exam, your provider may ask you about: Depression and anxiety Diet and exercise Alcohol and tobacco use Safety issues, such as using seat belts, smoke detectors, and intimate partner violence Your medicines and risk for interactions SKIN SELF-EXAM Your provider may check your skin for signs of skin cancer, especially if you're at high risk, such as if you: Have had skin cancer before Have close relatives with skin cancer Have a weakened immune system OTHER SCREENING Talk with your provider about colon cancer screening if you have a strong family history of colon cancer or polyps, or if you have had inflammatory bowel disease or polyps yourself. Routine bone density screening of women under 40 is not recommended. Coding Level of Care Code Est Pt Prev Care 40-64y(67866) Diagnoses Adult general medical exam Z00.00 Severe obesity (BMI 35.0-39.9) with comorbidity E66.01 Mild intermittent asthma in adult without complication J45.20 Hepatic steatosis K76.0 Renal cyst, right N28.1 Low vitamin D level R79.89 Cervicogenic headache G44.86 Headache type: cervicogenic headache Primary insomnia F51.01 Insomnia type: primary Additional Codes RAMEZ-7 Assessment Billing - RAMEZ-7 Assessment Tool: RAMEZ-7 Assessment [id number] ([id number])
[2023-09-13 09:18] VITALS: BP 108/80; PULSE 76; RESP 16; TEMP 36.8; O2SAT 96; BMI 39.7
== END 2023-09-13 10:17 | disposition home or self-care (01) ==
PROVIDERS: PCP Nurse Practitioner Family; Visit Provider Nurse Practitioner Family
DX: Z00.00 Encounter for general adult medical examination without abnormal findings (principal); E66.01 Morbid (severe) obesity due to excess calories; Z68.39 Body mass index [BMI] 39.0-39.9, adult; J45.20 Mild intermittent asthma, uncomplicated; K76.0 Fatty (change of) liver, not elsewhere classified; N28.1 Cyst of kidney, acquired; R79.89 Other specified abnormal findings of blood chemistry; G44.86 Cervicogenic headache; F51.01 Primary insomnia
CPT/HCPCS: 99396

== ENCOUNTER 2023-09-13 10:04 | Outpatient (REF) | payer OTHER, SELFPAY ==
[2023-09-13 11:31] LABS: Hemoglobin 12.9 g/dl (12.0-16.0); Mean Corpuscular HGB Conc 33.9 g/dl (31.0-35.0); Mean Corpuscular Hemoglobin 29.8 pg (27.0-33.0); Mean Corpuscular Volume 87.8 fL (80.0-98.0); Mean Platelet Volume 9.5 fL (9.4-12.3); Platelet Count 339 X10*3/uL (160-400); Red Blood Count 4.33 X10*6/uL (4.20-5.50); Red Cell Distribution Width 12.9 % (11.0-16.0); White Blood Count 7.8 X10*3/uL (4.8-10.8)
[2023-09-13 11:40] LABS: Estimated Average Glucose 111 mg/dL; Hemoglobin A1c % 5.5 % (<6.0)
[2023-09-13 12:31] LABS: Microalbum/Creatinine Ratio Ur 10.1 ug/mg cr (<30)
[2023-09-13 12:37] LABS: Alanine Aminotransferase 79 U/L (0-31); Albumin Level 4.2 g/dL (3.5-5.0); Alkaline Phosphatase 65 U/L (39-117); Anion Gap 15 (12-20); Aspartate Amino Transferase 48 U/L (5-31); Bilirubin Total 0.4 mg/dL (0.0-1.0); Blood Urea Nitrogen 9 mg/dL (9-16); Calcium 9.2 mg/dL (8.4-10.2); Carbon Dioxide 23 mmol/L (22-29); Chloride 105 mmol/L (96-108); Cholesterol 209 mg/dL (<200); Estimated Glomerular Filt Rate > 60; Glucose Fasting 79 mg/dL (60-99); HDL Cholesterol 43 mg/dL (>40); Iron 69 mcg/dL (30-160); LDL Cholesterol Calculated 131 mg/dL (<100); Percent Iron Saturation 26 % (15-50); Potassium 3.3 mmol/L (3.3-5.1); Sodium 140 mmol/L (135-145); TSH reflex Free T4 1.56 uIU/mL (0.32-4.0); Total Iron Binding Capacity 265 mcg/dL (228-428); Total Protein 7.5 g/dL (6.5-8.0); Triglycerides 179 mg/dL (<150); Unsaturated Iron Binding 196 ug/dL
[2023-09-13 12:46] LABS: Folate 12.1 ng/mL (> or = 4.0); Vitamin B12 496 pg/mL (200-900)
[2023-09-17 13:43] LABS: VITAMIN D (1,25 OH) D3 33 pg/mL; Vit D (1,25-Dihydroxy) Total 33 pg/mL (18-72); Vitamin D (1,25 OH) D2 <8 pg/mL
== END 2023-09-13 10:05 | disposition home or self-care (01) ==
LOC: HO.WFDLDS 10:04
PROVIDERS: Visit Provider Nurse Practitioner Family
DX: Z00.00 Encounter for general adult medical examination without abnormal findings (principal)
CPT/HCPCS: 36415; 80053; 80061; 82043; 82570; 82607; 82652; 82746; 83036; 83540; 84443; 85027

== ENCOUNTER 2023-11-01 08:57 | Outpatient (AMB) | payer OTHER, SELFPAY ==
--- NOTE | 2023-11-01 09:30 | A.OFFPC_ITS ---
Vital Signs 11/01/23 09:31 Height 5 ft 2 in Weight 213 lb BMI 39.0 BP 122/70 Blood Pressure Location Rt brachial Position Sitting Respiration 14 Pulse 65 Pulse Source Pulse Oximeter Temp 98 F Pulse Oximetry (%) 98 Oxygen Delivery Method Room Air Intake Visit Reasons: Drowsiness Intake Note: Dizzy and lightheaded Allergies Penicillins [PCN] Adverse Reaction (Verified 09/13/23 09:48) Rash Tobacco use date assessed: 04/02/23 Dental Screening Dental Screen Date: 09/13/23 HPI HPI Comments History of Present Illness Details 47 year old female German speaking tiffanie browne with past medical of chronic headache and facial twitch, fatty liver, GERD, hld presenting for lighthea ded/dizziness. 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 Reports a two week history of dizziness, lightheadedness. Feels like things are spinning when she lays down, turns over in bed, or moves position quickly Has some headache in the left occiput. denies considerable neck pain, ear pain. Denies nasal congestion. No cough. Status post breast surgery, cholecystectomy ROS see HPI PHYSICAL EXAM: GENERAL: Alert and oriented x 3. NAD EYES: EOMI. Anicteric. HENT: Small clear bilateral middle ear effusions. Moist mucous membranes. No scleral icterus. No cervical lymphadenopathy. symptoms recur with neck rotation. no nystagmus noted LUNGS: Clear to auscultation bilaterally. CARDIOVASCULAR: Regular rate and rhythm. No murmur. No JVD. ABDOMEN: Soft, non-tender +bs EXTREMITIES: No edema. Non-tender. SKIN: No rashes or lesions. Warm. NEUROLOGIC: No focal neurological deficits. CN II-XII grossly intact PSYCHIATRIC: Cooperative. Appropriate mood and affect [facility] Medical History (Updated 11/01/23 @ 09:47 by Mell Hendrix MD) Right elbow pain Left knee pain Lateral epicondylitis, right elbow PMB (postmenopausal bleeding) Morbid obesity with BMI of 40.0-44.9, adult Surgical History (Updated 09/13/23 @ 09:17 by Ellen Valera CMA) Hx of colonoscopy H/O breast surgery History of cholecystectomy Family History Mother Fibromyalgia Hypothyroidism Father Prostate cancer Hypertension Hypothyroidism Paternal Grandmother History of breast cancer Social History (Updated 09/13/23 @ 09:17 by Ellen Valera CMA) Housing: House Patient Tobacco Use Status: Never used Tobacco e-Cigarette/Vaping Use: Never Used service: No Current occupational status: unemployed Cognitive needs: No Hearing needs: No Vision needs: No Questionnaire Thrive Questionnaire Date Thrive assessed: 10/10/22 RAMEZ-7 AMB Questionnaire RAMEZ-7 Date RAMEZ - 7 assessed: 01/11/23 Source: Developed by Drs. Manuelito Triplett, Penny Millan, Segundo Gomes and colleagues, with an educational kenji from [employer]. Physical exam (Primary Care) Vital Signs: Last Vital Signs Temp 98 F 11/01/23 09:31 Pulse 65 11/01/23 09:31 Resp 14 11/01/23 09:31 BP 122/70 11/01/23 09:31 Pulse Ox 98 11/01/23 09:31 Oxygen Delivery Method Room Air 11/01/23 09:31 BMI result Body Mass Index 39.0 Tobacco/Smoking Status: Tobacco use Status Tobacco use date assessed 04/02/23 11/01/23 09:34 Patient Tobacco Use Status Never used Tobacco 11/01/23 09:34 e-Cigarette/Vaping Use Never Used 11/01/23 09:34 Thrive Assessment: Date of Thrive Assessment Date Thrive assessed 10/10/22 11/01/23 09:34 Assessment and Plan Assessment & Plan (1) Vertigo: Code(s): R42 - Dizziness and giddiness Plan: meclizine ATC x 48 then as needed. Referral to vestibular therapy. Will follow up if symptoms persist or worsen (2) Dizziness: Code(s): R42 - Dizziness and giddiness (3) Rosacea: Code(s): L71.9 - Rosacea, unspecified Orders: Orders PT Evaluation and Treatment 11/01/23 R42 - Dizziness and giddiness Referrals Dermatology Referral L71.9 - Rosacea, unspecified Medications: New meclizine 25 mg PO TID PRN 30 tabs 1RF vertigo/dizziness 10 days metronidazole 0.75% 1 appl topical BEDTIME 45 grams 0RF Coding Level of Care Code Est Pt Level 4 (35944) Diagnoses Vertigo R42 Dizziness R42 Rosacea L71.9
[2023-11-01 09:31] VITALS: BP 122/70; PULSE 65; RESP 14; TEMP 36.6; O2SAT 98; BMI 39.0
== END 2023-11-01 11:36 | disposition home or self-care (01) ==
PROVIDERS: Visit Provider Internal Medicine
DX: R42 Dizziness and giddiness (principal); L71.9 Rosacea, unspecified
CPT/HCPCS: 99214

== ENCOUNTER 2023-11-25 08:59 | Outpatient (AMB) | payer OTHER, SELFPAY ==
--- NOTE | 2023-11-25 09:09 | MHC.OFFWIV ---
Intake Vital Signs 11/25/23 09:11 Height 5 ft 3 in Weight 214 lb 8 oz BMI 38.0 BP 110/78 Blood Pressure Location Rt brachial Position Sitting Pulse 58 Pulse Source Pulse Oximeter Temp 98.5 F Temp Source Oral Pulse Oximetry (%) 96 Oxygen Delivery Method Room Air Intake Visit Reasons: EP Red itch on face Intake Note: Pt is here today for red itch on face, (cheeks and chin) Pt noticed Saturday Pt states started new products face cream 3wks ago, was prescribed Metronidazole cream and hasn't been working. 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 She states she was prescribed metronidazole cream for rosacea by her primary care doctor 3 weeks ago. She has been using it on/off and on Saturday, after she applied it, she noticed her skin started to itch, she also noticed a raised red rash. She states it got a little better with some time however She states she used the cream again this morning and the same thing happened but it seems to be a little better right now. She denies any fevers, bug bites. She states right now it looks better but she showed me a picture of what it looks like this morning, you could see what looks to be a red, raised rash on her left side lower cheek. She states she does have an appointment with a digital experience manager but it is not until February 20. Visit required a video disease management nurse [facility] Medical History (Updated 11/25/23 @ 09:53 by Beckie Tarango PA-C) Right elbow pain Left knee pain Lateral epicondylitis, right elbow PMB (postmenopausal bleeding) Morbid obesity with BMI of 40.0-44.9, adult Surgical History (Updated 09/13/23 @ 09:17 by Ellen Valera CMA) Hx of colonoscopy H/O breast surgery History of cholecystectomy Family History Mother Fibromyalgia Hypothyroidism Father Prostate cancer Hypertension Hypothyroidism Paternal Grandmother History of breast cancer Social History (Updated 09/13/23 @ 09:17 by Ellen Valera CMA) Housing: House Patient Tobacco Use Status: Never used Tobacco e-Cigarette/Vaping Use: Never Used service: No Current occupational status: unemployed Cognitive needs: No Hearing needs: No Vision needs: No Review of Systems Const All systems reviewed & are unremarkable except as noted in HPI and below Physical Exam Vital Signs: Last Vital Signs Temp 98.5 F 11/25/23 09:11 Pulse 58 11/25/23 09:11 BP 110/78 11/25/23 09:11 Pulse Ox 96 11/25/23 09:11 Oxygen Delivery Method Room Air 11/25/23 09:11 BMI result Body Mass Index 38.0 Const General: cooperative, healthy appearing, comfortable, no acute distress and well developed Orientation/consciousness: patient oriented x3 Limitations: no limitations Eyes General: appearance normal, both eyes and all related structures Resp Effort & Inspection: normal respiratory effort and able to speak in complete sentences Skin General skin exam: no rashes or lesions noted Neuro General: patient oriented x3 Assessment & Plan Assessment & Plan (1) Contact dermatitis: Code(s): L25.9 - Unspecified contact dermatitis, unspecified cause Qualifiers: Contact dermatitis type: irritant Contact dermatitis trigger: drugs in contact with skin Qualified Code(s): L24.4 - Irritant contact dermatitis due to drugs in contact with skin Plan: Recommended stopping the metronidazole gel on her face, recommended just using her regular regimen of face wash and creams until she can see a digital experience manager. Recommended [facility] so she could get an appointment sooner. Plan See above Medications: New hydroxyzine HCl 10 mg PO QID 10 tabs 0RF Coding Level of Care Code New Pt Level 3 (51370) Diagnoses Irritant contact dermatitis due to drug in contact with skin L24.4 Contact dermatitis type: irritant Contact dermatitis trigger: drugs in contact with skin
[2023-11-25 09:11] VITALS: BP 110/78; PULSE 58; TEMP 36.9; O2SAT 96; BMI 38.0
== END 2023-11-25 10:07 | disposition home or self-care (01) ==
PROVIDERS: PCP Nurse Practitioner Family; Visit Provider Physician Assistant
DX: L24.4 Irritant contact dermatitis due to drugs in contact with skin (principal)
CPT/HCPCS: 99203

== ENCOUNTER 2023-11-28 10:06 | Outpatient (AMB) | payer OTHER, SELFPAY ==
--- NOTE | 2023-11-28 10:12 | MHC.OFFVIS ---
Vital Signs 11/28/23 10:13 Height 5 ft 3 in Weight 214 lb BMI 37.9 BP 114/70 Intake Visit Reasons: 4 month EMB Administrative Medical Director Required: Yes Administrative Medical Director Language: Tugboat Dispatcher Name: Maddie Information Interpreted: non-clinical & clinical Bulbs Farmworker: Bulbs Farmworker Present (Maddie) Allergies Penicillins [PCN] Adverse Reaction (Verified 11/28/23 10:13) Rash Is last menstrual period known: Yes HPI Comments Details: Patient is here today for an endometrial biopsy she had a history of postmenopausal bleeding prior biopsy revealed proliferative endometrium. She reports she is still bleeding with clots with her Mirena IUD. She refuses to have the endometrial biopsy done today due to its being to painful. [facility] Medical History (Updated 11/28/23 @ 10:32 by Rica Hinds CNM) Right elbow pain Left knee pain Lateral epicondylitis, right elbow PMB (postmenopausal bleeding) Morbid obesity with BMI of 40.0-44.9, adult Surgical History (Updated 09/13/23 @ 09:17 by Ellen Valera CMA) Hx of colonoscopy H/O breast surgery History of cholecystectomy Family History Mother Fibromyalgia Hypothyroidism Father Prostate cancer Hypertension Hypothyroidism Paternal Grandmother History of breast cancer Social History (Updated 09/13/23 @ 09:17 by Ellen Valera CMA) Housing: House Patient Tobacco Use Status: Never used Tobacco e-Cigarette/Vaping Use: Never Used service: No Current occupational status: unemployed Cognitive needs: No Hearing needs: No Vision needs: No Review of Systems Const All systems reviewed & are unremarkable except as noted in HPI and below Endo Reports no additional complaints Physical Exam Vital Signs: Last Vital Signs BP 114/70 11/28/23 10:13 BMI result Body Mass Index 37.9 Const General: cooperative, healthy appearing and no acute distress Psych Appearance: well kempt Attitude: cooperative Thought process: Normal thought process present Results AMB Test Urine AMB Test Urine Negative Last Edit by ELIGIO Jones on 11/28/23 10:24 Results Reviewed Results Reviewed: Laboratory Last Values [facility]st Clinic Negative 11/28/23 10:24 Assessment & Plan Assessment & Plan (1) PMB (postmenopausal bleeding): Code(s): N95.0 - Postmenopausal bleeding Category: Medical Plan Discussed: Plan of care patient declines endometrial biopsy today request to have anesthesia so that she is not awake during the procedure. She also voiced concerns that she does not want to continue to have biopsies and worry about the bleeding and prefers to have a hysterectomy. Patient will be leaving to [place] will allow be back until the end of December her appointment will be scheduled at the end of December early January to meet the physician to prepare for the hysteroscopy appointment. All of her questions and concerns were addressed to the best of my ability and shared decision making. She is agreeable to the plan of care. This note is constructed using voice recognition software. While every effort has been made to ensure accuracy, registered medical assistant errors may have been included. Orders: Orders AMB HCG Urine Test Today Z32.02 - Encounter for test, result negative Coding Level of Care Code Est Pt Level 2 (57352) Diagnoses PMB (postmenopausal bleeding) N95.0
[2023-11-28 10:13] VITALS: BP 114/70; BMI 37.9
== END 2023-11-28 12:40 | disposition home or self-care (01) ==
LOC: HO.HWS 10:06
PROVIDERS: PCP Nurse Practitioner Family; Visit Provider Advanced Practice Midwife
DX: Z32.02 Encounter for pregnancy test, result negative (principal); N95.0 Postmenopausal bleeding
CPT/HCPCS: 99212

== ENCOUNTER → 2023-11-28 10:06 | Outpatient (BNVA) | payer OTHER, SELFPAY | PROVIDERS: PCP Nurse Practitioner Family; Visit Provider Advanced Practice Midwife | DX: N95.0 Postmenopausal bleeding (principal); Z97.5 Presence of (intrauterine) contraceptive device | CPT/HCPCS: 81025; 99212 ==

== ENCOUNTER 2024-01-09 07:50 | Outpatient (AMB) | payer OTHER, SELFPAY ==
--- NOTE | 2024-01-09 07:50 | MHC.OFFVIS ---
Vital Signs 01/09/24 07:51 Height 5 ft 3 in Weight 213 lb 13.574 oz BMI 37.9 Intake Visit Reasons: Hyst consult Senior Systems Engineer Required: Yes Senior Systems Engineer Language: Manager Search Engine Services: Senior Systems Engineer Present (in person) Senior Systems Engineer Name: Maddie DEL VALLE Information Interpreted: non-clinical & clinical Accompanied by: Self / Same As Patient Allergies Penicillins [PCN] Adverse Reaction (Verified 01/09/24 07:52) Rash Is last menstrual period known: Yes Last menstrual period: 01/03/24 HPI Comments Details: The patient is referred from Rica Hinds CNM regarding recurrent postmenopausal bleeding. The patient initially had postmenopausal bleeding 04/04 where endometrial biopsy showed proliferative endometrium the patient was counseled about different options of treatment and had Mirena IUD inserted in 05/04 repeat EMB in 08/03 EMB pathology showed the following: Fragments of benign endometrium with breakdown and pseudodecidual change consistent with exogenous progestin; organizing clot/fibrinoid material; no atypia identified 07/06 pelvic ultrasound showed the following: The uterus is of normal size and echogenicity, measuring 7.1 x 3.8 x 4.4 cm. The uterus is anteverted and anteflexed. A regular homogeneous endometrium is identified measuring 0.5 cm. An intrauterine device is seen, properly situated within the endometrial canal. FIBROIDS: There are 3 fibroids seen. 1. Location: Rightward fundus, myometrial. Size: 1.9 x 1.7 x 1.6 cm. Prior: 2.1 x 2.0 x 2.6 cm. Fibroid characteristics: Heterogeneous echotexture, with shadowing calcifications. 2. Location: Rightward upper body, myometrial. Size: 0.7 x 0.6 x 0.8 cm. Prior: Not seen. Fibroid characteristics: Hypoechoic. 3. Location: Posterior upper body, myometrial. Size: 0.9 x 0.6 x 0.8 cm. Prior: 0.4 x 0.4 x 0.4 cm. Fibroid characteristics: Hypoechoic, with calcifications. Both ovaries are of normal echogenicity and show normal doppler flow. The right ovary measures 5.7 x 4.6 x 4.0 cm for a volume of 5.5 mL. The right ovary contains a 4.3 x 3.6 x 4.0 cm benign, simple functional cyst, without septation, mural nodularity or associated color Doppler flow. Previously, this measured 4.2 x 4.0 x 3.7 cm. This requires no imaging follow-up. The left ovary measures 3.0 x 1.3 x 1.5 cm for a volume of 3.1 mL. The left ovary contains a 1.6 cm benign, physiologic follicle. There is no pelvic free fluid. No adnexal mass is seen. 04/04 co testing was negative 11/02 mammogram BI-RADS 1 10/03 cbc wnl Since a Mirena IUD insertion the patient has been having less vaginal bleeding but it keeps recurring PFSH Medical History Right elbow pain Left knee pain Lateral epicondylitis, right elbow PMB (postmenopausal bleeding) Morbid obesity with BMI of 40.0-44.9, adult Surgical History Hx of colonoscopy H/O breast surgery History of cholecystectomy Family History Mother Fibromyalgia Hypothyroidism Father Prostate cancer Hypertension Hypothyroidism Paternal Grandmother History of breast cancer Social History Housing: House Patient Tobacco Use Status: Never used Tobacco e-Cigarette/Vaping Use: Never Used service: No Current occupational status: unemployed Cognitive needs: No Hearing needs: No Vision needs: No Female Reproductive History Menstrual Date of last menstrual period: 01/03/24 Review of Systems Const All systems reviewed & are unremarkable except as noted in HPI and below Reports as per HPI and Reports no additional complaints GI Reports no additional complaints Reports no additional complaints Physical Exam Vital Signs: BMI result Body Mass Index 37.9 Assessment & Plan Assessment & Plan (1) PMB (postmenopausal bleeding): Code(s): N95.0 - Postmenopausal bleeding Category: Medical Plan: Discussed with the patient the differential diagnosis of post menopausal bleeding with normal pelvic exam including but not limited to, endometrial hyperplasia, cancer, polyps and other causes; recommended pelvic ultrasound and to proceed with endometrial sampling versus hysteroscopy D&C polypectomy. Instructed the patient to schedule an ultrasound with a follow-up appointment in 2 weeks. All questions answered, the patient verbalized understanding and agreed with the plan. (2) Uterine myoma: Code(s): D25.9 - Leiomyoma of uterus, unspecified Category: Medical Plan: Discussed with the patient the results of the ultrasound and the size of the myomas. Discussed with the patient risk of myosarcoma and symptoms that are caused by myomas including but not limited to pelvic pain, pressure symptoms, abnormal uterine bleeding. In addition discussed with the patient options of treatment for myomas including: Serial ultrasounds periodically to follow-up on the size of the myoma while targeting the treatment against fibroids related symptoms (Mirena IUD, progesterone treatment, uterine artery embolization ) versus surgical treatment including hysterectomy . All pros and cons, risks and benefits of all options were discussed with the patient. The patient understands that delay in surgical treatment in case of myosarcoma can affect her prognosis, after further discussion, the patient decided to think about it and get back to us next visit. Will order screening mammogram and a repeat pelvic ultrasound. Instructions given the patient to schedule the mammogram and a pelvic ultrasound and a follow-up appointment. All questions answered, the patient verbalized understanding. This note was generated with a voice recognition program. Some errors may have been overlooked during the review of this note. Sometimes these errors may affect the content or meaning of a given sentence. Orders: Orders US pelvic and transvaginal Today D25.9 - Leiomyoma of uterus, unspecified, N95.0 - Postmenopausal bleeding MM tomosynthesis screening BI Today Z12.31 - Encounter for screening mammogram for malignant neoplasm of breast Coding Level of Care Code Est Pt Level 3 (59289) Diagnoses PMB (postmenopausal bleeding) N95.0 Uterine myoma D25.9
[2024-01-09 07:51] VITALS: BMI 37.9
== END 2024-01-09 08:13 | disposition home or self-care (01) ==
LOC: HO.HWS 07:50
PROVIDERS: PCP Nurse Practitioner Family; Visit Provider Obstetrics & Gynecology
DX: N95.0 Postmenopausal bleeding (principal); D25.9 Leiomyoma of uterus, unspecified
CPT/HCPCS: 99213

== ENCOUNTER 2024-01-09 07:50 | Outpatient (REF) | payer OTHER, SELFPAY ==
[2024-01-09 08:52] LABS: Hematocrit 39.4 % (37.0-47.0); Mean Corpuscular Hemoglobin 29.6 pg (27.0-33.0); Mean Corpuscular Volume 89.7 fL (80.0-98.0); Platelet Count 357 X10*3/uL (160-400); Red Blood Count 4.39 X10*6/uL (4.20-5.50); White Blood Count 7.7 X10*3/uL (4.8-10.8)
[2024-01-09 09:14] LABS: Alanine Aminotransferase 31 U/L (0-31); Albumin Level 4.1 g/dL (3.5-5.0); Alkaline Phosphatase 71 U/L (39-117); Anion Gap 9 (12-20); Aspartate Amino Transferase 20 U/L (5-31); Bilirubin Direct 0.1 mg/dL (0.0-0.5); Bilirubin Total 0.3 mg/dL (0.0-1.0); Blood Urea Nitrogen 12 mg/dL (9-16); Calcium 9.3 mg/dL (8.4-10.2); Carbon Dioxide 27 mmol/L (22-29); Chloride 107 mmol/L (96-108); Cholesterol 188 mg/dL (<200); Estimated Glomerular Filt Rate > 60; Glucose Fasting 109 mg/dL (60-99); Glucose Random 109 mg/dL (60-115); HDL Cholesterol 37 mg/dL (>40); LDL Cholesterol Calculated 101 mg/dL (<100); Magnesium 2.2 mg/dL (1.6-2.6); Potassium 4.1 mmol/L (3.3-5.1); Sodium 139 mmol/L (135-145); Total Protein 7.4 g/dL (6.5-8.0); Triglycerides 252 mg/dL (<150)
[2024-01-09 09:36] LABS: Vitamin D 25-OH Total 22.1 ng/mL (>30)
== END 2024-01-09 07:51 | disposition home or self-care (01) ==
LOC: HO.LAB 07:50
PROVIDERS: Nurse Practitioner Family; Absent Provider Nurse Practitioner Family; PCP Nurse Practitioner Family; Visit Provider Obstetrics & Gynecology
DX: K76.0 Fatty (change of) liver, not elsewhere classified (principal); R25.3 Fasciculation; R74.01 Elevation of levels of liver transaminase levels; E78.5 Hyperlipidemia, unspecified; N95.0 Postmenopausal bleeding; D25.9 Leiomyoma of uterus, unspecified
CPT/HCPCS: 36415; 80053; 80061; 80076; 82306; 83735; 85027; 99212

== ENCOUNTER 2024-01-10 11:02 | Outpatient (REF) | payer OTHER, SELFPAY ==
--- NOTE | ~2024-01-10 | US_ITS ---
EXAMINATION: US PELVIS CLINICAL INFORMATION: Leiomyoma of the uterus. COMPARISON: Pelvic ultrasound 07/11/2023 TECHNIQUE: Ultrasound of the pelvis is performed using both transabdominal and transvaginal transducers along with Doppler. Transvaginal imaging is performed due to inadequate visualization transabdominally. FINDINGS: Uterus: The uterus is anteverted and measures 7.8 x 4.4 x 4.9 cm for a volume of 88 mL. The double wall endometrial thickness could not be measured, as an IUD was in place. The uterus is smooth in contour and has normal myometrial echogenicity. 3 uterine fibroids are again noted. The largest at the fundus appears slightly larger than prior (2.3 x 2.2 x 2.5 cm versus prior 1.9 x 1.7 x 1.6 cm). The other 2 fibroids are under a centimeter in size and are about the same. Adnexa: Both ovaries are visualized. There is normal color flow to the adnexa. There is no ovarian torsion. There is no pelvic ascites or fluid collection. Right ovary measures 5.1 x 4.3 x 4.4 cm for a volume of 50.5 mL, which includes a 4.3 x 3.8 x 4.0 cm complex cyst containing debris. Left ovary measures 2.9 x 2.0 x 1.9 cm for a volume of 5.8 mL, which includes a benign simple 2.1 cm cyst US/US pelvic and transvaginal IMPRESSION: 1. Multiple uterine fibroids, the largest at the fundus has increased in size slightly since the 07/11/2023 study. 2. Complex 4.3 cm right ovarian cyst. This is almost certainly benign and a follow-up exam in 3-6 months is recommended. Electronically signed by: Ej Araiza MD 01/13/2024 09:54 PM EDT
== END 2024-01-10 11:03 | disposition home or self-care (01) ==
LOC: HO.US 11:02
PROVIDERS: PCP Nurse Practitioner Family; Visit Provider Obstetrics & Gynecology
DX: D25.9 Leiomyoma of uterus, unspecified (principal); N95.0 Postmenopausal bleeding
CPT/HCPCS: 76830; 76856

== ENCOUNTER 2024-01-16 08:33 | Outpatient (AMB) | payer OTHER, SELFPAY ==
[2024-01-16 08:43] VITALS: BP 118/72; BMI 37.9
--- NOTE | 2024-01-16 08:43 | MHC.OFFVIS ---
Vital Signs 01/16/24 08:43 Height 5 ft 3 in Weight 213 lb 13.574 oz BMI 37.9 BP 118/72 Intake Visit Reasons: Pre op Street Superintendent Required: Yes Street Superintendent Language: Roll Forming Supervisor Services: Street Superintendent Present (in person) Street Superintendent Name: Maddie DEL VALLE Information Interpreted: non-clinical & clinical Accompanied by: Self / Same As Patient Allergies Penicillins [PCN] Adverse Reaction (Verified 01/16/24 08:52) Rash Is last menstrual period known: No (mirena) HPI Comments Details: Presenting for ultrasound follow-up done on 01/10/2024 which showed the following: Uterus: The uterus is anteverted and measures 7.8 x 4.4 x 4.9 cm for a volume of 88 mL. The double wall endometrial thickness could not be measured, as an IUD was in place. The uterus is smooth in contour and has normal myometrial echogenicity. 3 uterine fibroids are again noted. The largest at the fundus appears slightly larger than prior (2.3 x 2.2 x 2.5 cm versus prior 1.9 x 1.7 x 1.6 cm). The other 2 fibroids are under a centimeter in size and are about the same. Adnexa: Both ovaries are visualized. There is normal color flow to the adnexa. There is no ovarian torsion. There is no pelvic ascites or fluid collection. Right ovary measures 5.1 x 4.3 x 4.4 cm for a volume of 50.5 mL, which includes a 4.3 x 3.8 x 4.0 cm complex cyst containing debris. Left ovary measures 2.9 x 2.0 x 1.9 cm for a volume of 5.8 mL, which includes a benign simple 2.1 cm cyst The patient was seen few weeks ago referred from [facility] Hinds CNM regarding recurrent postmenopausal bleeding. She had 2 years of amenorrhea followed by an episode of postmenopausal bleeding in 04/04; FSH was in the menopausal range. Endometrial biopsy showed proliferative endometrium. The patient was counseled about different options of treatment and had Mirena IUD inserted in 05/04, Repeat EMB in 08/03 EMB pathology showed the following: Fragments of benign endometrium with breakdown and pseudodecidual change consistent with exogenous progestin; organizing clot/fibrinoid material; no atypia identified 07/06 pelvic ultrasound showed the following: The uterus is of normal size and echogenicity, measuring 7.1 x 3.8 x 4.4 cm. The uterus is anteverted and anteflexed. A regular homogeneous endometrium is identified measuring 0.5 cm. An intrauterine device is seen, properly situated within the endometrial canal. FIBROIDS: There are 3 fibroids seen. 1. Location: Rightward fundus, myometrial. Size: 1.9 x 1.7 x 1.6 cm. Prior: 2.1 x 2.0 x 2.6 cm. Fibroid characteristics: Heterogeneous echotexture, with shadowing calcifications. 2. Location: Rightward upper body, myometrial. Size: 0.7 x 0.6 x 0.8 cm. Prior: Not seen. Fibroid characteristics: Hypoechoic. 3. Location: Posterior upper body, myometrial. Size: 0.9 x 0.6 x 0.8 cm. Prior: 0.4 x 0.4 x 0.4 cm. Fibroid characteristics: Hypoechoic, with calcifications. Both ovaries are of normal echogenicity and show normal doppler flow. The right ovary measures 5.7 x 4.6 x 4.0 cm for a volume of 5.5 mL. The right ovary contains a 4.3 x 3.6 x 4.0 cm benign, simple functional cyst, without septation, mural nodularity or associated color Doppler flow. Previously, this measured 4.2 x 4.0 x 3.7 cm. This requires no imaging follow-up. The left ovary measures 3.0 x 1.3 x 1.5 cm for a volume of 3.1 mL. The left ovary contains a 1.6 cm benign, physiologic follicle. There is no pelvic free fluid. No adnexal mass is seen. 04/04 co testing was negative 11/02 mammogram BI-RADS 1 10/03 cbc wnl Since a Mirena IUD insertion the patient has been having less vaginal bleeding but it keeps recurring [facility] Medical History Right elbow pain Left knee pain Lateral epicondylitis, right elbow PMB (postmenopausal bleeding) Morbid obesity with BMI of 40.0-44.9, adult Surgical History Hx of colonoscopy H/O breast surgery History of cholecystectomy Family History Mother Fibromyalgia Hypothyroidism Father Prostate cancer Hypertension Hypothyroidism Paternal Grandmother History of breast cancer Social History Housing: House Patient Tobacco Use Status: Never used Tobacco e-Cigarette/Vaping Use: Never Used service: No Current occupational status: unemployed Cognitive needs: No Hearing needs: No Vision needs: No Physical Exam Vital Signs: Last Vital Signs BP 118/72 01/16/24 08:43 BMI result Body Mass Index 37.9 Assessment & Plan Assessment & Plan (1) PMB (postmenopausal bleeding): Comment: On Mirena IUD Code(s): N95.0 - Postmenopausal bleeding Category: Medical Plan: Recommended hysteroscopy D&C possible polypectomy/myomectomy with Mirena IUD removal. Discussed with the patient the procedure , all benefits and risks the patient declined at this point and would like to proceed with surgical management. (2) Uterine myoma: Code(s): D25.9 - Leiomyoma of uterus, unspecified Category: Medical Plan: Discussed with the patient the results of the ultrasound and the size of the myomas. Discussed with the patient risk of myosarcoma and symptoms that are caused by myomas including but not limited to pelvic pain, pressure symptoms, abnormal uterine bleeding. In addition discussed with the patient options of treatment for myomas including: Serial ultrasounds periodically to follow-up on the size of the myoma while targeting the treatment against fibroids related symptoms ( Mirena IUD, progesterone treatment, others) versus surgical treatment including hysterectomy and or myomectomy. All pros and cons, risks and benefits of all options were discussed with the patient. The patient decided to proceed with surgical management. Discussed with the patient the different types of hysterectomies including, vaginal, laparoscopic assisted vaginal, robotic assisted laparoscopic,& abdominal with BSO. All pros, cons, r/b of each approach were discussed the patient including evidence that morbidity is less and recovery is shorter with minimally invasive approaches to hysterectomy. Discussed with the patient the lack of availability of the robot DaVinci robot and/or minimally invasive senior actuarial analyst specialist at [facility]. The patient was referred to [facility]. Instructed the patient to call our office back in case a referral appointment is not scheduled, missed or canceled so that we will assist on rescheduling another appointment, the patient verbalized understanding agreed with the plan. (3) Complex ovarian cyst: Code(s): N83.299 - Other ovarian cyst, unspecified side Category: Medical Plan: Discussed with the patient the complex ovarian cyst by ultrasound. Discussed with the patient the Ultrasound findings, the main limitation of transvaginal ultrasonography alone as a diagnostic tool to distinguish benign from malignant masses relates to its lack of specificity and low positive predictive value for cancer. The differential diagnosis discussed with the patient includes the following but not limited to: benign and malignant gynecological and non-gynecological causes. CA 125, CA 19-9, CEA ordered Discussed with the patient options of treatment including laparoscopy ovarian oophorectomy vs. expectant management with repeat US in repeating pelvic US in 6-12 weeks from previous US. If the ovarian complex cyst is persistent larger and / or more complex looking, or abnormal tumor markers will refer to gynecologic Oncology. All pros, cons, risks and benefits of each approach were discussed with the patient including but not limited to a delay in the diagnosis and treatment of ovarian cancer affecting the prognosis; The patient decided to proceed with surgical management. Refer the patient to [facility] minimally invasive hysterectomy/BSO. Orders: Orders CA-125 Today N83.299 - Other ovarian cyst, unspecified side Carbohydrate Antigen 19-9 Today N83.299 - Other ovarian cyst, unspecified side Carcinoembryonic Antigen Today N83.299 - Other ovarian cyst, unspecified side Coding Level of Care Code Est Pt Level 3 (63592) Diagnoses PMB (postmenopausal bleeding) N95.0 Uterine myoma D25.9 Complex ovarian cyst N83.299
== END 2024-01-16 11:25 | disposition home or self-care (01) ==
LOC: HO.HWS 08:33
PROVIDERS: PCP Nurse Practitioner Family; Visit Provider Obstetrics & Gynecology
DX: N95.0 Postmenopausal bleeding (principal); D25.9 Leiomyoma of uterus, unspecified; N83.299 Other ovarian cyst, unspecified side
CPT/HCPCS: 99213

== ENCOUNTER 2024-01-16 08:33 | Outpatient (REF) | payer OTHER, SELFPAY ==
[2024-01-16 11:21] LABS: Carcinoembryonic Antigen < 1.73 ng/mL
[2024-01-17 10:34] LABS: CA-125 13 U/mL (<35); Carbohydrate Antigen 19-9 13 U/mL (<34)
== END 2024-01-16 08:34 | disposition home or self-care (01) ==
LOC: HO.LAB 08:33
PROVIDERS: PCP Nurse Practitioner Family; Visit Provider Obstetrics & Gynecology
DX: N83.299 Other ovarian cyst, unspecified side (principal); N95.0 Postmenopausal bleeding; D25.9 Leiomyoma of uterus, unspecified
CPT/HCPCS: 36415; 82378; 86301; 86304; 99212

== ENCOUNTER 2024-01-22 10:35 | Outpatient (AMB) | payer OTHER, SELFPAY ==
--- NOTE | 2024-01-22 10:38 | MHC.PC.OV ---
Vital Signs 01/22/24 10:41 Height 5 ft 3 in Weight 208 lb 8 oz BMI 36.9 BP 124/72 Blood Pressure Location Rt brachial Position Sitting Respiration 15 Pulse 63 Pulse Source Pulse Oximeter Pulse Oximetry (%) 96 Oxygen Delivery Method Room Air Intake Visit Reasons: follow up Intake Note: follow up and patient also complaining of swelling of both feet and also painful right foot when walking Allergies Penicillins [PCN] Adverse Reaction (Verified 01/22/24 10:46) Rash Medication List - Last Reconciled 01/22/24 by Carissa Harper, WOMEN'S HEALTH CARE NURSE PRACTITIONER-BC atorvastatin 40 mg PO BEDTIME B-complex with vitamin C 1 tab PO DAILY cholecalciferol (vitamin D3) 50 mcg PO DAILY famotidine 40 mg PO BEDTIME hydrocortisone 2.5% (Proctosol HC) 1 appl MS BID-QID PRN hydroxyzine HCl 25 mg PO BEDTIME PRN hydroxyzine HCl 10 mg PO QID meclizine 25 mg PO TID PRN 10 days pantoprazole 40 mg PO DAILY Tobacco use date assessed: 01/22/24 Dental Screening Dental Screen Date: 09/13/23 HPI HPI Comments History of Present Illness Details 48-year-old Ukrainian speaking female with obesity, hepatic steatosis, right renal cyst, vitamin-D deficiency, proliferative endometrium with bx q 6 months, hyperlipidemia, asthma, GERD, insomnia, vertigo, Status post breast surgery, cholecystectomy [employer] Assessment: [id number] Here today to fu on chronic conditions & new c/o BLE edema and R foot pain Swelling in RLE, shows me pictures from 12/11/2023, she endorses swelling of BLE. A while ago until November had swelling, never like this. On the right foot, upon waking with walking limps. During the night, when she sleep, she elevates the legs and the swelling improves. Feels tired all of the time. Denies any overt injury, chest pain, sob. Hyperlipidemia: on statin, tolerant and compliant. Improved lipid profile, see below. Now acceptable. Vit D def- Vit d remains low. Taking as directed. Plan increase VIt D to 100 mcg daily and repeat labs. Labs from 09/17/2023 showing normal renal function, electrolytes, iron studies, elevated AST 48, elevated ALT 79, normal alk-phos, elevated total cholesterol 209, triglycerides 179, LDL 131, HDL 43, normal B12, normal vitamin-D, normal folate, normal TSH Labs from 01/09/2024 shown elevated fasting glucose 109, elevated triglycerides 252, normal cholesterol 188, LDL 101, HDL 37, low vitamin-D 22.1, normal CBC, normal electrolytes, normal renal function, normal LFTs Exam: Awake alert NAD RRR LS CTAB Trace edema right foot, lateral aspect, nonpitting. No edema to lle. Right foot: Has pain over the middle aspect of the foot with palpation, plantar aspect. No pain over heel or Achilles. No bony tenderness. Does have 2 pink papules on the inner aspect of the right foot. Pt states this is new and has not been there prior to the onset. Left foot: normal exam Plan: Cont statin same dose Increase VIt D to 100mcg QD US Venous Insuff Podiatry referral RTO in 3-4 weeks to fu on edema of BLE and US results, sooner PRN This note is constructed using voice recognition software. While every effort has been made to ensure accuracy in parking control officer, still errors may have been included Sometimes, these errors may affect the content or meaning of the given sentence . Total time spent caring for the patient today was 40 minutes. This includes time spent before the visit reviewing the chart, time spent during the visit, and time spent after the visit on documentation [facility] Medical History Right elbow pain Left knee pain Lateral epicondylitis, right elbow PMB (postmenopausal bleeding) Morbid obesity with BMI of 40.0-44.9, adult Surgical History Hx of colonoscopy H/O breast surgery History of cholecystectomy Family History Mother Fibromyalgia Hypothyroidism Father Prostate cancer Hypertension Hypothyroidism Paternal Grandmother History of breast cancer Social History Housing: House Patient Tobacco Use Status: Never used Tobacco e-Cigarette/Vaping Use: Never Used service: No Current occupational status: unemployed Cognitive needs: No Hearing needs: No Vision needs: No Questionnaire Thrive Questionnaire Date Thrive assessed: 10/10/22 RAMEZ-7 AMB Questionnaire RAMEZ-7 Date RAMEZ - 7 assessed: 01/11/23 Source: Developed by Drs. Manuelito Triplett, Penny Millan, Segundo Gomes and colleagues, with an educational kenji from [employer]. Physical exam (Primary Care) Vital Signs: Last Vital Signs Pulse 63 01/22/24 10:41 Resp 15 01/22/24 10:41 BP 124/72 01/22/24 10:41 Pulse Ox 96 01/22/24 10:41 Oxygen Delivery Method Room Air 01/22/24 10:41 BMI result Body Mass Index 36.9 Tobacco/Smoking Status: Tobacco use Status Tobacco use date assessed 01/22/24 01/22/24 10:43 Patient Tobacco Use Status Never used Tobacco 01/22/24 10:39 e-Cigarette/Vaping Use Never Used 01/22/24 10:39 Thrive Assessment: Date of Thrive Assessment Date Thrive assessed 10/10/22 01/22/24 10:39 Assessment and Plan Assessment & Plan (1) Edema: Code(s): R60.9 - Edema, unspecified Qualifiers: Edema type: localized Qualified Code(s): R60.0 - Localized edema (2) Plantar fasciitis: Code(s): M72.2 - Plantar fascial fibromatosis (3) Hyperlipidemia: Comment: 09/2023 start atorvastatin 40mg QD, repeat labs 4 months Code(s): E78.5 - Hyperlipidemia, unspecified Qualifiers: Hyperlipidemia type: mixed hyperlipidemia Qualified Code(s): E78.2 - Mixed hyperlipidemia (4) Low vitamin D level: Comment: Currently maintained on a vitamin-D supplement. Code(s): R79.89 - Other specified abnormal findings of blood chemistry Orders: Orders US venous insuf bilat Today R60.9 - Edema, unspecified Referrals Podiatry Referral M72.2 - Plantar fascial fibromatosis Medications: Changed From cholecalciferol (vitamin D3) 50 mcg PO DAILY 90 tabs 2RF R79.89 - Other specified abnormal findings of blood chemistry To cholecalciferol (vitamin D3) 100 mcg (2 x 50 mcg (2,000 unit)) PO DAILY 180 tabs 2RF 90 days R79.89 - Other specified abnormal findings of blood chemistry Refilled atorvastatin 40 mg PO BEDTIME 90 tabs 1RF Coding Level of Care Code Est Pt Level 5 (89681) Complex EM visit Add On G2211 Diagnoses Localized edema R60.0 Edema type: localized Plantar fasciitis M72.2 Mixed hyperlipidemia E78.2 Hyperlipidemia type: mixed hyperlipidemia Low vitamin D level R79.89
[2024-01-22 10:41] VITALS: BP 124/72; PULSE 63; RESP 15; O2SAT 96; BMI 36.9
== END 2024-01-22 11:09 | disposition home or self-care (01) ==
PROVIDERS: Visit Provider Nurse Practitioner Family
DX: R60.0 Localized edema (principal); M72.2 Plantar fascial fibromatosis; E78.2 Mixed hyperlipidemia; R79.89 Other specified abnormal findings of blood chemistry
CPT/HCPCS: 99215; G2211

== ENCOUNTER → 2024-01-23 09:15 | Outpatient (BNV) | payer OTHER, SELFPAY | PROVIDERS: PCP Nurse Practitioner Family; Visit Provider Internal Medicine | DX: Z12.31 Encounter for screening mammogram for malignant neoplasm of breast (principal) | CPT/HCPCS: 77063; 77067 ==

== ENCOUNTER 2024-01-23 09:18 | Outpatient (REF) | payer OTHER, SELFPAY ==
--- NOTE | ~2024-01-23 | MM_ITS ---
EXAMINATION: MM SCREENING DIGITAL BREAST TOMOSYNTHESIS, BILATERAL CLINICAL INFORMATION: Screening. Asymptomatic. COMPARISON: Mammography: Comparison is made with available priors TECHNIQUE: Digital breast mammography with tomosynthesis is performed in both the craniocaudal and mediolateral oblique views along with computer-aided detection (CAD). FINDINGS: There are scattered areas of fibroglandular density (ACR BI-RADS breast composition Category b). There are no significant masses, abnormal calcifications, or other abnormalities. MM/MM tomosynthesis screening BI IMPRESSION: No mammographic evidence of malignancy. ASSESSMENT: BI-RADS BI-RADS 1 - Negative RECOMMENDATION: Routine annual mammography screening. 1 year F/U This examination should not preclude the clinical evaluation of a suspicious palpable abnormality. This patient's information was entered into a reminder system with a target due date for their next mammogram. Electronically signed by: Ashlyn Meneses DO 02/05/2024 07:47 PM EDT
== END 2024-01-23 09:19 | disposition home or self-care (01) ==
LOC: HO.MAMMO 09:18
PROVIDERS: PCP Nurse Practitioner Family; Visit Provider Obstetrics & Gynecology
DX: Z12.31 Encounter for screening mammogram for malignant neoplasm of breast (principal)
CPT/HCPCS: 77063; 77067

== ENCOUNTER 2024-02-07 08:34 | Outpatient (REF) | payer OTHER, SELFPAY ==
--- NOTE | ~2024-02-07 | US_ITS ---
EXAMINATION: US LOWER EXTREMITY VENOUS (REFLUX EXAM), BILATERAL CLINICAL INFORMATION: Edema COMPARISON: None. TECHNIQUE: Color flow triplex imaging and compression Doppler was performed to evaluate both the deep and the superficial systems bilaterally. To evaluate the superficial system, the examination was performed in the upright position. Color-flow Doppler ultrasound and compression ultrasound were utilized. In addition, maneuvers were utilized to demonstrate reflux. FINDINGS: 1. DEEP VENOUS ULTRASOUND OF THE RIGHT LOWER EXTREMITY: Common Femoral Vein: Compressible, normal respiratory variation and augmented flow. Femoral Vein: Compressible, normal color flow and augmentation. Popliteal Vein: Compressible, normal augmentation. Deep Reflux: Reflux in the mid femoral vein at 1724 ms There is no evidence of a Cullen's cyst. Possible small lipoma in the popliteal region of the right lower extremity. 2. SUPERFICIAL ULTRASOUND WITH DOPPLER OF RIGHT LOWER EXTREMITY: GREAT SAPHENOUS VEIN: Saphenofemoral Junction: 0.6 cm; Reflux: 0 ms Proximal Thigh: 0.4 cm; Reflux: 0 ms Mid Thigh: 0.2 cm; Reflux: 0 ms Distal Thigh: 0.3 cm; Reflux: 0 ms At Knee: 0.3 cm; Reflux: 0 ms Proximal Calf: 0.3 cm; Reflux: 712 ms Mid Calf: 0.3 cm; Reflux: 0 ms Distal Calf: 0.2 cm; Reflux: 0 ms DUPLICATED MEDIAL GREAT SAPHENOUS VEIN: Diameter: None imaged Reflux: NA DUPLICATED LATERAL GREAT SAPHENOUS VEIN: Saphenofemoral Junction: 0.5 cm; Reflux: 0 ms Mid thigh: 0.1 cm; Reflux: 0 ms SMALL SAPHENOUS VEIN: Saphenopopliteal Junction: 0.4 cm; Reflux: 0 ms Proximal: 0.2 cm; Reflux: 0 ms Distal: 0.2 cm; Reflux: 0 ms VEIN OF GIACOMINI: Size: NA Reflux: NA PERFORATORS: Location: Proximal and distal calf Size: 0.2-0.3 cm Reflux: NA VARICOSITIES: Location: None imaged. Size: NA Reflux: NA 3. DEEP VENOUS ULTRASOUND OF THE LEFT LOWER EXTREMITY: Common Femoral Vein: Compressible, normal respiratory variation and augmented flow. Femoral Vein: Compressible, normal color flow and augmentation. Popliteal Vein: Compressible, normal augmentation. Deep Reflux: There is no evidence of reflux in the deep system in either the common femoral vein, superficial femoral or the popliteal vein. There is no evidence of a Cullen's cyst. 4. SUPERFICIAL ULTRASOUND WITH DOPPLER OF LEFT LOWER EXTREMITY: GREAT SAPHENOUS VEIN: Saphenofemoral Junction: 0.7 cm; Reflux: 0 ms Proximal Thigh: 0.4 cm; Reflux: 0 ms Mid Thigh: 0.3 cm; Reflux: 0 ms Distal Thigh: 0.3 cm; Reflux: 0 ms At Knee: 0.3 cm; Reflux: 0 ms Proximal Calf: 0.2 cm; Reflux: 0 ms Mid Calf: 0.2 cm; Reflux: 2232 ms Distal Calf: 0.2 cm; Reflux: 0 ms DUPLICATED MEDIAL GREAT SAPHENOUS VEIN: Diameter: None imaged Reflux: NA DUPLICATED LATERAL GREAT SAPHENOUS VEIN: Saphenofemoral Junction: 0.3 cm; Reflux: 0 ms Mid thigh: 0.2 cm; Reflux: 0 ms SMALL SAPHENOUS VEIN: Saphenopopliteal Junction: 0.4 cm; Reflux: 0 ms Proximal: 0.2 cm; Reflux: 0 ms Distal: 0.2 cm; Reflux: 1200 ms VEIN OF GIACOMINI: Size: NA Reflux: NA PERFORATORS: Location: Proximal calf Size: 0.2 cm Reflux: NA VARICOSITIES: Location: None Imaged Size: NA Reflux: NA US/US venous insuf bilat IMPRESSION: 1. Right: Focal reflux in the mid femoral vein. Focal reflux in the great saphenous vein in the proximal calf. 2. Left: Focal reflux in the great saphenous vein in the mid calf. Small saphenous vein reflux in the distal calf. Electronically signed by: Veronika Granados MD 02/12/2024 05:58 AM EDT
== END 2024-02-07 08:35 | disposition home or self-care (01) ==
LOC: HO.US 08:34
PROVIDERS: PCP Nurse Practitioner Family; Visit Provider Nurse Practitioner Family
DX: R60.9 Edema, unspecified (principal)
CPT/HCPCS: 93970

== ENCOUNTER 2024-02-17 13:03 | Outpatient (AMB) | payer OTHER, SELFPAY ==
--- NOTE | 2024-02-17 13:14 | MHC.PC.OV ---
Vital Signs 02/17/24 13:16 Height 5 ft 3 in Weight 204 lb 4 oz BMI 36.2 BP 122/70 Blood Pressure Location Lt brachial Position Sitting Respiration 14 Pulse 60 Pulse Source Pulse Oximeter Pulse Oximetry (%) 98 Oxygen Delivery Method Room Air Intake Visit Reasons: 3-4 weeks fu BLE edema and US results Intake Note: follow up ultrasound Allergies Penicillins [PCN] Adverse Reaction (Verified 02/17/24 13:16) Rash Medication List - Last Reconciled 02/17/24 by Carissa Harper, ERICKA- atorvastatin 40 mg PO BEDTIME B-complex with vitamin C 1 tab PO DAILY cholecalciferol (vitamin D3) 100 mcg (2 x 50 mcg (2,000 unit)) PO DAILY 90 days famotidine 40 mg PO BEDTIME hydrocortisone 2.5% (Proctosol HC) 1 appl [place] BID-QID PRN hydroxyzine HCl 25 mg PO BEDTIME PRN hydroxyzine HCl 10 mg PO QID meclizine 25 mg PO TID PRN 10 days pantoprazole 40 mg PO DAILY Tobacco use date assessed: 01/22/24 Dental Screening Dental Screen Date: 09/13/23 HPI HPI Comments History of Present Illness Details 48-year-old Turkmen speaking female with obesity, hepatic steatosis, right renal cyst, vitamin-D deficiency, proliferative endometrium with bx q 6 months, hyperlipidemia, asthma, GERD, venous insuff BLE, lipoma RLE popliteal region Status post breast surgery, cholecystectomy Specialists GI Director Medicare Sales Urology Orthopedics Neuro Podiatry Health maintenance Mammo 11/09/22 Colon UTD Tdap 2012, Flu 02/2024 Pap 04/11/23 Interepreter :[id number] Here today to f/u on edema of BLE. Results reviewed w/ her today: 01/2024 1. Right: Focal reflux in the mid femoral vein. Focal reflux in the great saphenous vein in the proximal calf. Lipoma R popliteal region 2. Left: Focal reflux in the great saphenous vein in the mid calf. Small saphenous vein reflux in the distal calf. Cont to have some swelling in BLE, has been dieting. Has been reducing juice and bread and sugar. Discussed treatment options today to include referral to Vascular for eval and tx or conservative treatment using Compression socks and lifestyle mods She wishes to see Vascular at this time. She also would like to see a vp information technology. She did see someone 02/2023, this note was reviewed. Reviewed surgical option for bariatrics; she does not want surgery at this time. Did see podiatry recommend $600 insert which she cannot afford for R plantar fasc. Would like 2nd opinion. Exam: Awake alert NAD Trace edema right foot, lateral aspect, nonpitting. No edema to lle. Right foot: Has pain over the middle aspect of the foot with palpation, plantar aspect. No pain over heel or Achilles. No bony tenderness. Plan Vascular referral Lifestyle Mods Nutrition referral Podiatry referral to Dr Ovalle in [place], 2nd opinion RTO as scheduled for CPE, sooner PRN This note is constructed using voice recognition software. While every effort has been made to ensure accuracy in operator receptionist, still errors may have been included Sometimes, these errors may affect the content or meaning of the given sentence . Total time spent caring for the patient today was 34 minutes. This includes time spent before the visit reviewing the chart, time spent during the visit, and time spent after the visit on documentation [facility] Medical History Right elbow pain Left knee pain Lateral epicondylitis, right elbow PMB (postmenopausal bleeding) Morbid obesity with BMI of 40.0-44.9, adult Surgical History Hx of colonoscopy H/O breast surgery History of cholecystectomy Family History Mother Fibromyalgia Hypothyroidism Father Prostate cancer Hypertension Hypothyroidism Paternal Grandmother History of breast cancer Social History Housing: House Patient Tobacco Use Status: Never used Tobacco e-Cigarette/Vaping Use: Never Used service: No Current occupational status: unemployed Cognitive needs: No Hearing needs: No Vision needs: No Questionnaire Thrive Questionnaire Date Thrive assessed: 10/10/22 RAMEZ-7 AMB Questionnaire RAMEZ-7 Date RAMEZ - 7 assessed: 01/11/23 Source: Developed by Drs. Manuelito Triplett, Penny Millan, Segundo Gomes and colleagues, with an educational kenji from [employer]. Physical exam (Primary Care) Vital Signs: Last Vital Signs Pulse 60 02/17/24 13:16 Resp 14 10/07/24 13:16 BP 122/70 02/17/24 13:16 Pulse Ox 98 02/17/24 13:16 Oxygen Delivery Method Room Air 02/17/24 13:16 BMI result Body Mass Index 36.2 Tobacco/Smoking Status: Tobacco use Status Tobacco use date assessed 01/22/24 02/17/24 13:18 Patient Tobacco Use Status Never used Tobacco 02/17/24 13:18 e-Cigarette/Vaping Use Never Used 02/17/24 13:18 Thrive Assessment: Date of Thrive Assessment Date Thrive assessed 10/10/22 02/17/24 13:18 Office Procedures Flu Questionnaire Does the patient have a severe egg allergy?: No Does the patient have severe life threatening allergies?: No Does the patient have a fever or illness today?: No Has the patient ever had Guillain-Mascot Syndrome?: No Has the patient ever had any past reaction to a flu shot?: No Immunizations Fluarix Triv [id number] (PF) 45 mcg (15 mcg x 3)/0.5 mL IM syringe [facility] Performing Location: [facility] [place] Administered by: Katia Otto RN on 02/17/24 14:06 Dose Route Admin Location Dispensed Lot Number Expiration Date [facility] Health Education Director 0.5 mL IM Right Deltoid 0.5 mL [id number] 11/09/24 [id number] [employer] VIS Given Date VIS Provided VIS Publication Date 02/17/24 Single Vaccine 20 Eligibility Eligibility Date Funding Source Not [facility] Eligible 02/17/24 Private Coding Level of Care Code Est Pt Level 4 (61640) Complex EM visit Add On G2211 Diagnoses Localized edema R60.0 Edema type: localized Venous insufficiency of both lower extremities I87.2 Class 2 obesity E66.812 Plantar fasciitis M72.2 Assessment & Plan Assessment & Plan (1) Edema: Code(s): R60.9 - Edema, unspecified Category: Medical Qualifiers: Edema type: localized Qualified Code(s): R60.0 - Localized edema Plan: . (2) Venous insufficiency of both lower extremities: Code(s): I87.2 - Venous insufficiency (chronic) (peripheral) Category: Medical Plan: . (3) Class 2 obesity: Code(s): E66.812 - Obesity, class 2 Category: Medical Plan: . (4) Plantar fasciitis: Code(s): M72.2 - Plantar fascial fibromatosis Category: Medical Plan: . Plan . Orders: Orders Influenza [id number] Immunization Today Z23 - Encounter for immunization Referrals Vascular Surgery Referral I87.2 - Venous insufficiency (chronic) (peripheral), R60.0 - Localized edema Nutrition/Dietitian Referral E66.812 - Obesity, class 2 Podiatry Referral M72.2 - Plantar fascial fibromatosis
[2024-02-17 13:16] VITALS: BP 122/70; PULSE 60; RESP 14; O2SAT 98; BMI 36.2
== END 2024-02-17 14:04 | disposition home or self-care (01) ==
PROVIDERS: PCP Nurse Practitioner Family; Visit Provider Nurse Practitioner Family
DX: R60.0 Localized edema (principal); I87.2 Venous insufficiency (chronic) (peripheral); E66.812 Obesity, class 2; M72.2 Plantar fascial fibromatosis; Z23 Encounter for immunization

== ENCOUNTER → 2024-02-17 13:03 | Outpatient (BNVA) | payer OTHER, SELFPAY | PROVIDERS: PCP Nurse Practitioner Family; Visit Provider Nurse Practitioner Family | DX: Z23 Encounter for immunization (principal); R60.0 Localized edema; I87.2 Venous insufficiency (chronic) (peripheral); E66.812 Obesity, class 2; M72.2 Plantar fascial fibromatosis | CPT/HCPCS: 90471; 90656; 99212 ==

== ENCOUNTER 2024-03-24 11:35 | Outpatient (AMB) | payer OTHER, SELFPAY ==
--- NOTE | 2024-03-24 11:37 | MHC.OFFVIS ---
Vital Signs 03/24/24 11:38 Height 5 ft 3 in Weight 204 lb BMI 36.1 BP 116/70 Blood Pressure Location Rt brachial Position Sitting Intake Visit Reasons: [facility] referral for LE swelling Allergies Penicillins [PCN] Adverse Reaction (Verified 03/24/24 11:41) Rash PFSH Medical History Right elbow pain Left knee pain Lateral epicondylitis, right elbow PMB (postmenopausal bleeding) Morbid obesity with BMI of 40.0-44.9, adult Surgical History Hx of colonoscopy H/O breast surgery History of cholecystectomy Family History Mother Fibromyalgia Hypothyroidism Father Prostate cancer Hypertension Hypothyroidism Paternal Grandmother History of breast cancer Social History Housing: House Patient Tobacco Use Status: Never used Tobacco e-Cigarette/Vaping Use: Never Used service: No Current occupational status: unemployed Cognitive needs: No Hearing needs: No Vision needs: No Physical Exam Vital Signs: Last Vital Signs BP 116/70 03/24/24 11:38 BMI result Body Mass Index 36.1 Coding
--- NOTE | 2024-03-24 11:37 | MHC.OFFVIS ---
Vital Signs 03/24/24 11:38 Height 5 ft 3 in Weight 204 lb BMI 36.1 BP 116/70 Blood Pressure Location Rt brachial Position Sitting Intake Visit Reasons: [facility] referral for LE swelling Intake Note: Audrey is a 48 year old female who presents to the office today for leg swelling. Pt states she has swelling in both legs and states one isn't worse than the other. Pt states she noticed the swelling since being 15 years ago. She states the swelling has gotten worse over time especially after this summer. Pt states she also gets ankle swelling. Pt states her legs feel tired almost all the time. Entrepreneurial Finance Professor Required: Yes Entrepreneurial Finance Professor Language: High School Industrial Arts Teacher Services: Entrepreneurial Finance Professor Present Entrepreneurial Finance Professor Name: Asuncion([id number]) Allergies Penicillins [PCN] Adverse Reaction (Verified 03/24/24 11:41) Rash HPI HPI [facility] referral for LE swelling: Details: Audrey, a pleasant Tajik-speaking only 48-year-old female patient, is being seen today as a consult from her primary care for ongoing bilateral lower extremity edema and review of ultrasound results. We utilized [employer] as an network announcer; the network announcer Ishmael lynne was not working. She states initially the swelling started approximately 15 years ago after the of her children and has not gotten any better since. She has not used any conservative measures at this point. She states her legs can feel tired and heavy especially after any physical activity or walking. She states the swelling got particularly worse this summer. She denies any history of DVT or PE. She denies any history of phlebitis. She denies any travel. She has never been a smoker and she is not a diabetic. [facility] Medical History Right elbow pain Left knee pain Lateral epicondylitis, right elbow PMB (postmenopausal bleeding) Morbid obesity with BMI of 40.0-44.9, adult Surgical History Hx of colonoscopy H/O breast surgery History of cholecystectomy Family History Mother Fibromyalgia Hypothyroidism Father Prostate cancer Hypertension Hypothyroidism Paternal Grandmother History of breast cancer Social History Housing: House Patient Tobacco Use Status: Never used Tobacco e-Cigarette/Vaping Use: Never Used service: No Current occupational status: unemployed Cognitive needs: No Hearing needs: No Vision needs: No Review of Systems Const Reports as per HPI and Denies weakness ENT Reports Normal hearing present and Denies dizziness Card Reports as per HPI, Denies chest pain, Denies chest pain at rest, Denies chest pain with activity, Denies dyspnea and Denies dyspnea on exertion Resp Reports as per HPI, Denies cough, Denies dyspnea and Denies dyspnea on exertion GI Reports as per HPI, Denies abdominal pain, Denies nausea and Denies vomiting Musc Denies numbness Skin/Breast Reports as per HPI, Denies erythema and Denies wounds Neuro Reports Normal hearing present, Denies dizziness, Denies numbness, Denies Sensory deficit (Neuro) and Denies weakness Psych Reports no additional complaints Endo Reports no additional complaints Physical Exam Vital Signs: Last Vital Signs BP 116/70 03/24/24 11:38 BMI result Body Mass Index 36.1 Const General: healthy appearing and no acute distress Orientation/consciousness: patient oriented x3 HEENT Head: Yes normal to inspection Ears: hearing grossly normal bilaterally Mouth: Normal oral and palatal mucosa present Resp Effort & Inspection: normal respiratory effort and able to speak in complete sentences Auscultation: clear to auscultation bilaterally Cardio Jugular venous distension: no JVD Rate: regular rate Rhythm: regular rhythm Heart sounds: S1 normal heart sound present and S2 normal heart sound present Bruits: no abdominal aortic bruits, no carotid bruits, no femoral bruits and no renal bruits Peripheral pulses: Peripheral pulses 2+ throughout GI Inspection: Yes normal to inspection Palpation (GI): No Abdominal aortic bruit present Skin General skin exam: no rashes or lesions noted Wounds: no wounds Hair: normal Neuro General: patient oriented x3 Cranial nerves: Yes Normal hearing present Cognition (Neuro): normal cognition Gait exam (Neuro): Normal gait present Motor exam (neuro): 5/5 motor strength present throughout Sensory Exam: No Sensory deficit (Neuro) Extrem Other: Bilateral lower extremities: Trace peripheral edema noted bilaterally. Slight discoloration noted bilaterally from mid jay to ankles. Palpable DP pulses. No varicosities or tortuosity is noted. General: Yes normal to inspection, Yes full ROM, Yes capillary refill normal and Yes normal gait Results Reviewed Results Reviewed: Reviewed ultrasound which revealed no formal reflux issues and no venous insufficiency. Assessment & Plan Assessment & Plan (1) Venous insufficiency of both lower extremities: Code(s): I87.2 - Venous insufficiency (chronic) (peripheral) Category: Medical Plan: Audrey is being seen today as a consult from her PCP for ongoing bilateral lower extremity swelling getting worse over the last 4 months. She has had a venous insufficiency ultrasound which was negative for any venous insufficiency. She has not tried any conservative measures. At this point, there is no surgical interventions required. We discussed the importance of conservative measures including elevation, compression stockings, and physical activity. We will have her follow up with us again if anything changes. We discussed the importance of following up with her PCP for further evaluation and treatment of the extremity swelling. Thank you for the consult. If there are any questions or concerns, please do not hesitate to reach out to us. Coding Level of Care Code Est Pt Level 4 (15977) Diagnoses Venous insufficiency of both lower extremities I87.2 Comment Review of venous insufficiency ultrasound
[2024-03-24 11:38] VITALS: BP 116/70; BMI 36.1
== END 2024-03-24 12:02 | disposition home or self-care (01) ==
PROVIDERS: PCP Nurse Practitioner Family; Visit Provider Physician Assistant Surgical
DX: I87.2 Venous insufficiency (chronic) (peripheral) (principal)
CPT/HCPCS: 99214

== ENCOUNTER → 2024-03-24 11:35 | Outpatient (BNVA) | payer OTHER, SELFPAY | PROVIDERS: PCP Nurse Practitioner Family; Visit Provider Physician Assistant Surgical | DX: I87.2 Venous insufficiency (chronic) (peripheral) (principal); R60.0 Localized edema | CPT/HCPCS: 99212 ==

== ENCOUNTER 2024-03-31 10:28 | Outpatient (AMB) | payer OTHER, SELFPAY ==
[2024-03-31 10:31] VITALS: PULSE 60; O2SAT 94; BMI 34.2
--- NOTE | 2024-03-31 10:31 | A.OFFVIS_ITS ---
Vital Signs 03/31/24 10:31 Height 5 ft 3 in Weight 193 lb BMI 34.2 Pulse 60 Pulse Source Pulse Oximeter Pulse Oximetry (%) 94 Oxygen Delivery Method Room Air Intake Visit Reasons: INP-Migraines Sample Examiner Required: No Accompanied by: Self / Same As Patient Allergies Penicillins [PCN] Adverse Reaction (Verified 03/31/24 10:33) Rash Medication List - Last Reconciled 03/31/24 by ERICKA Victor atorvastatin 40 mg PO BEDTIME B-complex with vitamin C 1 tab PO DAILY cholecalciferol (vitamin D3) 100 mcg (2 x 50 mcg (2,000 unit)) PO DAILY 90 days famotidine 40 mg PO BEDTIME hydrocortisone 2.5% (Proctosol HC) 1 appl [place] BID-QID PRN hydroxyzine HCl 25 mg PO BEDTIME PRN hydroxyzine HCl 10 mg PO QID meclizine 25 mg PO TID PRN 10 days pantoprazole 40 mg PO DAILY Do you need a note to return to daycare/school/sports/work: No HPI Comments Details: Right-handed 48-yr-old female presents for new pt evaluation of headache disorder. Pt reports she had headaches since her 20s. Over the years, she has developed daily headache. She previously saw neurology in [place], last time was in about 2016. In [place], she had taken some medication which was helpful, but does not recall what. Since her headaches have become more constant and botehrsome. PMH and ROS are notable for:? General: sleep difficulties, fatigue, a little weight gain, uses reading glasses Musculoskeletal disorders or injury: chronic neck pain, leg cramps- during day and night. SMALL PIECE CUTTER: uterine myoma Family history of migraine or other headache disorder: her mother Pertinent denials include: Dizziness, nausea. Denies h/o specifc neck injury. Denies family h/o involuntary moevements. Denies h/o neuroleptic or metoclopramide use. 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 Previous work-up: None Typical headache characteristics: Prodrome symptoms: none Aura: none Pain intensity: severe Location, quality, characteristics: Feels like inflammation in the mid-frontal region f/b bilateral temples/sides pressure. Associated symptoms: electrical/creepy crawling sensation, when her hair is longer the headache is worse- but denies allodynia, fatigue, watery eyes, bilateral facial warmth, neck tightness and involuntary neck movements. Postdrome: unsure Triggers: no known triggers. Time of day: worse in the afternoon Duration and Frequency: constant How does headache impact your life? needs to rest. Current acute medication use/interventions: Advil liquigels 2 prn, may take up to 4 gels per day, takes more days than not but not daily. Current preventative medication use: none Non-pharmacological interventions: rests. [facility] Medical History Right elbow pain Left knee pain Lateral epicondylitis, right elbow PMB (postmenopausal bleeding) Morbid obesity with BMI of 40.0-44.9, adult Surgical History Hx of colonoscopy H/O breast surgery History of cholecystectomy Family History Mother Fibromyalgia Hypothyroidism Father Prostate cancer Hypertension Hypothyroidism Paternal Grandmother History of breast cancer Social History Housing: House Patient Tobacco Use Status: Never used Tobacco e-Cigarette/Vaping Use: Never Used service: No Current occupational status: unemployed Cognitive needs: No Hearing needs: No Vision needs: No Physical Exam Vital Signs: Last Vital Signs Pulse 60 03/31/24 10:31 Pulse Ox 94 03/31/24 10:31 Oxygen Delivery Method Room Air 03/31/24 10:31 BMI result Body Mass Index 34.2 Const Orientation/consciousness: patient oriented x3 Resp Effort & Inspection: normal respiratory effort and able to speak in complete sentences Neuro Other: Mild right eye photophobia EOM intact though convergence elicits un-well feeling. Palpable scalp tenderness from frontal through occipital regions. Mild forward head and shoulder posture. No noticeable involuntary head movements/jerks during this visit today. Bilateral posterior cervical tightness. Cervical ROM: limited cervical extension which elicits non-radiating discomfort. Left Spurling: normal Right Spurling: normal. General: patient oriented x3 Cranial nerves: Yes CN's II-XII intact bilaterally and Yes Nystagmus not present Cognition (Neuro): normal cognition Gait exam (Neuro): Normal gait present Motor exam (neuro): 5/5 motor strength present throughout Deep tendon reflexes (DTR's): Right triceps reflex intensity grade: 2+, Left triceps reflex intensity grade: 2+, Rt Biceps (C5, C6): 2+, Left biceps reflex intensity grade: 2+, Right brachioradialis reflex intensity grade: 2+, Left b rachioradialis reflex intensity grade: 2+, Right patellar reflex intensity grade: 2+ and Left patellar reflex intensity grade: 2+ Coordination: [id number] test normal, tandem gait normal and Romberg test negative Pupils: Normal pupillary reactivity/response: bilateral Psych Appearance: grossly normal Mental Status: mental status grossly normal Speech and movement: Normal speech and movement present Affect: normal affect Attitude: cooperative Thought process: Normal thought process present Assessment & Plan Assessment & Plan (1) Worsening headaches: Code(s): R51.9 - Headache, unspecified Category: Medical (2) Paresthesia: Code(s): R20.2 - Paresthesia of skin Category: Medical (3) Cervicalgia: Code(s): M54.2 - Cervicalgia Category: Medical Plan Worsening headaches DDx chronic migraine w/ sensory aura, cervigogenic, cranial neuralgia, secondary intracranial process. Involuntary cervical/head movements DDX cervical muscle spasms, chronic migraine, cervical dystonia. Denies h/o neuroleptic/dopamine agonist tx or family hx of same. Pt advised to undergo: Xr c-spine w/ flex/ext Brain MRI w/wo to assess for secondary etiologies of worsening headache a/w paresthesias, facial warmth. PT eval & Tx For overall headache management: * Optimize good self-care, including but not limited to maintaining a healthy diet, adequate fluid intake, adequate sleep, and engaging in regular physical activity. * Track headaches, especially after any treatment regimen changes. Migraine [employer] is one of many headache tracking apps. For acute headache treatment: Discussed importance of taking acute medications at the first sign of headache, however stressed importance of avoiding acute medication overuse (especially with combined headache medications). Trial Sumatriptan 100mg tab, 1/2 - 1 tab (50-100mg) at onset of headache, may re peat in 2 hours. Max of 2 tabs (200mg) per 24 hours. May adjunct with OTC Advil liquigels 600mg q 6 hours prn. Potential adverse effects of triptans, include but are not limited to nausea, fatigue, chest tightness/tingling (usually passes within a few minutes), medication overuse headaches. Previous acute migraine medication trials: none Acute migraine medication contraindications: None at this time For headache prevention medication: Preventative medications should be taken routinely as prescribed for best effect, it may take several weeks for full effect to take effect. Start Riboflavin 400mg qam Start Magnesium 400mg qhs Trial Topiramate 25mg tab, 1 tab qhs x's 1 wk, then 2 tabs qhs x's 1 wk, then 3 tabs qhs x's 1 wk, then 4 tabs qhs. Potential adverse effects of Topiramate, include but are not limited to fatigue, cognitive changes, paresthesias (tingling), vision changes, kidney stones. Previous migraine prevention medication trials: Propranolol x's 5 months- not effective for her headache. Migraine prevention medication contraindications: None at this time Pt seen in collaboration w/ Dr Cornelia Regan. Will follow-up upon review of above and patient to follow-up in clinic in 6 months or sooner prn. Orders: Orders XR cervical spine w flex/ext Today M54.2 - Cervicalgia PT Evaluation and Treatment Today M54.2 - Cervicalgia, R51.9 - Headache, unspecified MR head/brain wo/w con Today R20.2 - Paresthesia of skin, R51.9 - Headache, unspecified Medications: New topiramate 1 tab qhs x's 1 wk, then 2 tabs qhs x's 1 wk, then 3 tabs qhs x's 1 wk, then 4 tabs qhs. orally bedtime; 30 days 120 tabs 3RF magnesium oxide may hold for loose stools 400 mg PO BEDTIME 30 days 30 tabs 6RF sumatriptan succinate (0.5 - 1 x 100 mg) 50 - 100 mg orally at onset of headache, may repeat in 2 hrs PRN; max 2 tabs per day or 4 tabs/week (may take with Advil) 30 days 12 tabs 6RF migraine headache riboflavin (vitamin B2) 400 mg PO DAILY 30 days 30 tabs 6RF Coding Level of Care Code New Pt Level 4 (71086) Diagnoses Worsening headaches R51.9 Paresthesia R20.2 Cervicalgia M54.2
== END 2024-03-31 11:58 | disposition home or self-care (01) ==
PROVIDERS: Visit Provider Nurse Practitioner Family
DX: R51.9 Headache, unspecified (principal); R20.2 Paresthesia of skin; M54.2 Cervicalgia
CPT/HCPCS: 99204

== ENCOUNTER → 2024-03-31 10:28 | Outpatient (BNVA) | payer OTHER, SELFPAY | PROVIDERS: Visit Provider Nurse Practitioner Family | DX: R51.9 Headache, unspecified (principal); R20.2 Paresthesia of skin; M54.2 Cervicalgia | CPT/HCPCS: 99202 ==

== ENCOUNTER 2024-04-21 13:06 | Outpatient (AMB) | payer OTHER, SELFPAY ==
--- NOTE | 2024-04-21 13:09 | MHC.PC.OV ---
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 Allergies Penicillins [PCN] Adverse Reaction (Verified 04/21/24 13:13) Rash Tobacco use date assessed: 01/22/24 Dental Screening Dental Screen Date: 09/13/23 HPI HPI Comments History of Present Illness Details 48-year-old [place] speaking female with obesity, hepatic steatosis, right renal cyst, vitamin-D deficiency, proliferative endometrium with bx q 6 months, hyperlipidemia, asthma, GERD, venous insuff BLE, lipoma RLE popliteal regionStatus post breast surgery, cholecystectomy 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 The patient noticed the bruise upon waking three days prior to the visit. She denies any recent trauma or impact to the breast. The bruise initially appeared without any recollection of an inciting event. There is no associated breast pain or changes in skin texture. The patient had a mammogram performed on January 22, three months ago, with results indicating normal findings with no abnormalities detected. The patient reports taking Advil (ibuprofen) as needed, including a dose taken the night before noticing the bruise, however, there is no regular usage indicated. The patient's medication list has been reviewed without further concerns identified. The patient?s mother advised her to consult with a physician regarding the bruise. Physical Exam - Integumentary- Observed bruise on the left breast, inner lower quadrant about 2 inches x 1.5 inch, notable for yellow discoloration indicative of healing. Nipple is intact, no drainage or dimpling. No skin changes. No palpable lumps. No erythema. Plan For the bruising of the breast, I recommended observation as the bruise is already showing signs of resolution with color changes from blue to yellow. I advised the patient not to apply heat or ice to the area. It is essential for the patient to report if the bruise does not completely resolve, if there are any new skin changes, or if there is the development of any breast pain. Given the patient?s recent usage of Advil, this could have contributed to increased bruising risk. No additional diagnostic testing is necessary at this time due to the normal findings on the recent mammogram and the healing nature of the bruise. The patient should continue monitoring and reach out with any concerning changes. Patient was informed and verbally consented to the use of an ambient scribe for clinic note documentation during this visit. [facility] Medical History Right elbow pain Left knee pain Lateral epicondylitis, right elbow PMB (postmenopausal bleeding) Morbid obesity with BMI of 40.0-44.9, adult Surgical History Hx of colonoscopy H/O breast surgery History of cholecystectomy Family History Mother Fibromyalgia Hypothyroidism Father Prostate cancer Hypertension Hypothyroidism Paternal Grandmother History of breast cancer Social History Housing: House Patient Tobacco Use Status: Never used Tobacco e-Cigarette/Vaping Use: Never Used service: No Current occupational status: unemployed Cognitive needs: No Hearing needs: No Vision needs: No Questionnaire PHQ-9 Over the last 2 weeks, how often have you been bothered by any of the following problems? 1. Little interest or pleasure in doing things: not at all 2. Feeling down, depressed, or hopeless: not at all 3. Trouble falling or staying asleep, or sleeping too much: several days 4. Feeling tired or having little energy: not at all 5. Poor appetite or overeating: not at all 6. Feeling bad about yourself - or that you are a failure or have let yourself or your family down: not at all 7. Trouble concentrating on things, such as reading the newspaper or watching television: not at all 8. Moving or speaking so slowly that other people could have noticed. Or the opposite - being so fidgety or restless that you have been moving around a lot more than usual: not at all 9. Thoughts that you would be better off or of hurting yourself in some way: not at all Total score: 1 57763 - PHQ-9 Billing: Yes Source: Developed by Drs. Manuelito Triplett, Penny Millan, Segundo Gomes and colleagues, with an educational kenji from [employer]. Thrive Questionnaire Date Thrive assessed: 04/21/24 I am a: Patient What is your living situation today?: I have a steady place to live Within the past 12 months, did the food you bought not last and you didn't have the money to get more?: Never true Within the past 12 months, did you worry whether your food would run out before you got money to buy more?: Never true Do you have trouble paying for medicines?: No Do you have trouble getting transportation to medical appointments?: No Do you have trouble paying your heating and electricity bill?: No Do you have trouble taking care of your child, family member or friend?: No Do you have trouble with day-to-day activities such as bathing, preparing meals, shopping, managing finances, etc.?: No Are you currently unemployed and looking for a job?: Yes Are you interested in more education?: I choose not to answer this question Please select the resources that you would like help with: None Currently or been in a relationship where the following occur: No concerns reported THRIVE Score: 0 AUDIT C Alcohol Use Questionnaire (AUDIT-C) 1. How often do you have a drink containing alcohol?: Never Total Score: 0 RAMEZ-7 AMB Questionnaire RAMEZ-7 Date RAMEZ - 7 assessed: 04/21/24 Feeling nervous, anxious, or on edge: 0 = Not at all Not being able to stop or control worryin = Not at all Worrying too much about different things: 0 = Not at all Trouble relaxin = Not at all Being so restless that it is hard to sit still: 0 = Not at all Becoming easily annoyed or irritable: 0 = Not at all Feeling afraid as if something awful might happen: 1 = Several days Total RAMEZ-7 score (0-4 normal; 5-9 mild; 10-14 moderate; 15-21 severe): 1 Source: Developed by Penny Mcgee Kurt Kroenke and colleagues, with an educational kenji from [employer]. RAMEZ-7 Assessment Billing RAMEZ-7 Assessment Tool: RAMEZ-7 Assessment 20602 Physical exam (Primary Care) Vital Signs: Last Vital Signs Pulse 57 04/21/24 13:14 Resp 13 04/21/24 13:14 BP 118/70 04/21/24 13:14 Pulse Ox 98 04/21/24 13:14 Oxygen Delivery Method Room Air 04/21/24 13:14 BMI result Body Mass Index 34.4 Tobacco/Smoking Status: Tobacco use Status Tobacco use date assessed 01/22/24 04/21/24 13:10 Patient Tobacco Use Status Never used Tobacco 04/21/24 13:10 e-Cigarette/Vaping Use Never Used 04/21/24 13:10 PHQ-9: PHQ-9 Score PHQ-9: Total score 1 04/21/24 13:10 Thrive Assessment: Date of Thrive Assessment Date Thrive assessed 04/21/24 04/21/24 13:10 Currently or been in a relationship where the following occur: No concerns reported Chest Chest/axillae images: 1. Coding Level of Care Code Est Pt Level 3 (07960) Complex EM visit Add On G2211 Diagnoses Contusion of left breast, initial encounter S20.02XA Encounter type: initial encounter Laterality: left Additional Codes RAMEZ-7 Assessment Billing - RAMEZ-7 Assessment Tool: RAMEZ-7 Assessment 99339 ([id number]) PHQ-9 - 01192 - PHQ-9 Billing: Yes ([id number]) Assessment & Plan Assessment & Plan (1) Bruise of breast: Code(s): S20.00XA - Contusion of breast, unspecified breast, initial encounter Category: Medical Qualifiers: Encounter type: initial encounter Laterality: left Qualified Code(s): S20.02XA - Contusion of left breast, initial encounter Plan: . Plan .
[2024-04-21 13:14] VITALS: BP 118/70; PULSE 57; RESP 13; O2SAT 98; BMI 34.4
== END 2024-04-21 13:54 | disposition home or self-care (01) ==
PROVIDERS: PCP Nurse Practitioner Family; Visit Provider Nurse Practitioner Family
DX: S20.02XA Contusion of left breast, initial encounter (principal)

== ENCOUNTER → 2024-04-21 13:06 | Outpatient (BNVA) | payer OTHER, SELFPAY | PROVIDERS: PCP Nurse Practitioner Family; Visit Provider Nurse Practitioner Family | DX: S20.02XA Contusion of left breast, initial encounter (principal) | CPT/HCPCS: 96127; 99212 ==

== ENCOUNTER 2024-04-28 09:27 | Outpatient (REF) | payer OTHER, SELFPAY ==
[2024-04-28] MEDS: gadobutroL 10 ML VIAL IVPUSH (10:39)
== END 2024-04-28 09:28 | disposition home or self-care (01) ==
LOC: HO.MRI 09:27
PROVIDERS: Visit Provider Nurse Practitioner Family
DX: R20.2 Paresthesia of skin (principal); R51.9 Headache, unspecified
CPT/HCPCS: 70553; A9585

== ENCOUNTER 2024-04-28 10:30 | Outpatient (REF) | payer OTHER, SELFPAY | END 2024-04-28 10:31 | disposition home or self-care (01) | LOC: HO.XRAY 10:30 | PROVIDERS: PCP Nurse Practitioner Family; Visit Provider Nurse Practitioner Family | DX: M54.2 Cervicalgia (principal) | CPT/HCPCS: 72052 ==

== ENCOUNTER 2024-10-19 08:01 | Outpatient (AMB) | payer OTHER, SELFPAY ==
--- NOTE | 2024-10-19 08:02 | A.OFFPC_ITS ---
Vital Signs 10/19/24 08:08 Height 5 ft 3 in Weight 203 lb BMI 36.0 BP 122/70 Blood Pressure Location Lt brachial Position Sitting Respiration 12 Pulse 72 Pulse Source Pulse Oximeter Temp 97.4 F Temp Source Oral Pulse Oximetry (%) 99 Oxygen Delivery Method Room Air Intake Visit Reasons: 1 year CPE with me Intake Note: Cpe. Patient also c/o lower back x 1 month Hospital Receiving Clerk Required: Yes Hospital Receiving Clerk Language: Charge Hand Name: Brannon [id number] Allergies Penicillins [PCN] Adverse Reaction (Verified 10/19/24 08:17) Rash Medication List - Last Reconciled 10/19/24 by Carissa Harper, MYCOLOGY TEACHER-BC atorvastatin 40 mg PO BEDTIME B-complex with vitamin C 1 tab PO DAILY cholecalciferol (vitamin D3) 100 mcg (2 x 50 mcg (2,000 unit)) PO DAILY 90 days famotidine 40 mg PO BEDTIME hydrocortisone 2.5% (Proctosol HC) 1 appl IN BID-QID PRN hydroxyzine HCl 25 mg PO BEDTIME PRN hydroxyzine HCl 10 mg PO QID magnesium oxide 400 mg PO BEDTIME 30 days meclizine 25 mg PO TID PRN 10 days pantoprazole 40 mg PO DAILY riboflavin (vitamin B2) 400 mg PO DAILY 30 days sumatriptan succinate 50 - 100 mg orally at onset of headache, may repeat in 2 hrs PRN; max 2 tabs per day or 4 tabs/week (may take with Advil) 30 days topiramate 1 tab qhs x's 1 wk, then 2 tabs qhs x's 1 wk, then 3 tabs qhs x's 1 wk, then 4 tabs qhs. orally bedtime; 30 days Tobacco use date assessed: 10/19/24 Dental Screening Dental Screen Date: 10/19/24 Did you have a dental visit in the last 12 months?: Yes Did you have a dental problem in the last 6 months where you did not have access to dental care?: No Was dental information given to patient?: Patient has dentist HPI HPI Comments History of Present Illness Details 49-year-old [place] Islander speaking female with obesity, hepatic steatosis, right renal cyst, vitamin-D deficiency, proliferative endometrium with bx q 6 months, hyperlipidemia, asthma, GERD, venous insuff BLE, lipoma RLE popliteal region Status post breast surgery, cholecystectomy Fhx: no changes Social: no changes Specialists GI Service Order Expediter Neuro Podiatry Derm first appt Feb 2025 at [facility] maintenance Mammo 01/2024 Colon 2022, Repeat 10 years Tdap 2022, Flu 02/2024 Pap 04/11/23 Hospital Receiving Clerk: [id number] Here today for CPE c/o Left lower back pain, started 1.5 months ago, had a fall prior to the onset of the pain. Intermittent; + relief w/ medication. Denies radiculopathy. R wrist pain: R hand dominant; no injury; started 1 week ago. Pain is constant. Using Advil and bengay with + relief. - History of morbid obesity (BMI 36), ma naged hyperlipidemia (atorvastatin 40 mg). - Vitamin D deficiency (on vitamin D3 20 00 units/day), chronic GERD (on pantoprazole). - Insomnia (hydroxyzine 25 mg ineffectiv e), melatonin tried with + relief - Migraine headaches managed with topira mate, sumatriptan. [facility] Social History - The patient expressed dissatisfaction with diet plans from nutrition consultations due to excessive protein content. - She attempted dietary modifications by reducing sugar and flour intake but reported no weight loss. - Interested in referral for a new weigh t management program, which includes a speech and drama teacher and medication options, at [facility]. - No interest in prior or current nutrit ion or speech and drama teacher follow-ups expressed. Review of Systems - Musculoskeletal: Reports low back pain , right wrist pain. - Neurological: Reports migraine headach es, insomnia. - Gastrointestinal: Reports GERD with dy sphagia. - Nutritional: Denies effective weight l oss despite dietary changes. - Psychiatric: Insomnia persists despite hydroxyzine, attempts melatonin. - Cardiovascular: Denies any significant cardiovascular symptoms, aside from periodic fast heart rate episodes. Physical Exam General: Well developed, well nourished, in no acute distress. Appears stated age. Head: Normocephalic, atraumatic. Eyes: Pupils are equal, round and reactive to light and accommodation. Conjunctivae are clear. Vision grossly normal. Ears: TMs clear AU, EACS WNL Nose: Patent, without discharge. Neck: Supple, no adenopathy or thyromegaly. Breast: Edu on SBE Lungs: Clear to auscultation bilaterally. No rales, rhonchi or wheeze noted. Good air flow in all hernandez. Heart: Regular rate and rhythm. No murmurs, click, rubs or gallops are noted. Abdomen: Bowel sounds present in all quadrants. The abdomen is soft, nontender, with no masses or organomegaly noted. No hernias are noted. : Deferred. Reviewed recommendations for routine WORKDAY CONSULTANT Pulses: Peripheral pulses are equal and palpable bilaterally. Extremities: No clubbing, cyanosis nor edema is noted. Neurologic: Gait and station normal. Cranial Nerves 2-12 intact. Motor strength grossly symmetrical and intact. No sensory loss. Balance normal. Skin: No rashes, ulcers, or lesions noted. Turgor is good. Skin color is good. Hair and nails are without abnormalities. Psych: Normal eye contact, affect and mood appropriate, and normal interactions. Patient is alert and appropriate to context. Results Pending Discussion Notes I discussed with the patient her symptoms of low back pain and right wrist pain, emphasizing the benefits of rest and appropriate interventions such as physical or occupational therapy. For the potential tendinitis of the wrist, I offered to refer her to a wrist specialist for further evaluation, as she declined OT. For her back pain, I recommended career developer as she preferred it over physical therapy. Her chronic conditions were reviewed, and medication compliance was assessed. I confirmed her medications for hyperlipidemia and adjustment for GERD management. She is scheduled for routine wellness follow-up in six months, with blood work done beforehand to monitor her current health status. Referral to a new weight management program was initiated based on her stated interest. Assessment and Plan 1. Low Back Pain - Recommend career developer. - No urgent imaging. Imaging done 05/01 24 - Assume muscular origin. - Supportive care, OTC analgesia 2. Right Wrist Pain - Suspected tendinitis. - Offer wrist specialist referral. - Rest and NSAIDs suggested. 3. Morbid Obesity - Refer to weight management program. 4. Hyperlipidemia - Continue atorvastatin 40 mg. 5. Vitamin D Deficiency - Maintain vitamin D3 2000 units daily. 6. GERD - Use pantoprazole. 7. Insomnia - Hydroxyzine trial ineffective, melaton in effective, cont. 8. Migraine - Continue topiramate, sumatriptan. [facility] Patient Instructions - Schedule chiropractic sessions for luis eduardo k pain management. - Use Advil or topical cream for wrist p ain relief. - Limit wrist strain; rest well. - Maintain diet low in sugar and refined flour. - Monitor for symptom worsening, return if needed. - Continue medications as prescribed for hyperlipidemia and GERD. - Ensure blood work is done before next follow-up. - Follow up in six months or sooner if s ymptoms persist. Consent Patient was informed and verbally consented to the use of an ambient scribe for clinic note documentation during this visit. An additional 30 minutes was spent addressing the problem(s) noted at todays vis it. This includes time spent before the visit reviewing the chart, time spent during the visit, and time spent after the visit on documentation reviewing laboratory results, diagnostic imaging, medications, performing a medically necessary evaluation, counseling on diagnoses, care coordination, ordering appropriate tests, ordering appropriate medications, review of tests performed by other providers, reporting test results with the patient, communication with other healthcare providers. [facility] Medical History (Updated 10/19/24 @ 08:54 by Carissa Harper, [facility]) Lateral epicondylitis, right elbow Left knee pain Morbid obesity with BMI of 40.0-44.9, adult PMB (postmenopausal bleeding) Right elbow pain Surgical History (Updated 10/19/24 @ 08:06 [facility] H/O breast surgery History of cholecystectomy Hx of colonoscopy (~02/2023) Family History Mother Fibromyalgia Hypothyroidism Father Prostate cancer Hypertension Hypothyroidism Paternal Grandmother History of breast cancer Social History Housing: House Patient Tobacco Use Status: Never used Tobacco e-Cigarette/Vaping Use: Never Used service: No Current occupational status: unemployed Cognitive needs: No Hearing needs: No Vision needs: No Questionnaire PHQ-9 Over the last 2 weeks, how often have you been bothered by any of the following problems? 1. Little interest or pleasure in doing things: not at all 2. Feeling down, depressed, or hopeless: not at all 3. Trouble falling or staying asleep, or sleeping too much: more than half the days 4. Feeling tired or having little energy: several days 5. Poor appetite or overeating: not at all 6. Feeling bad about yourself - or that you are a failure or have let yourself or your family down: not at all 7. Trouble concentrating on things, such as reading the newspaper or watching television: not at all 8. Moving or speaking so slowly that other people could have noticed. Or the opposite - being so fidgety or restless that you have been moving around a lot more than usual: not at all 9. Thoughts that you would be better off or of hurting yourself in some way: not at all Total score: 3 Depression Screening Interpretation: Negative Depression Screening Done: Yes 89220 - PHQ-9 Billing: Yes Source: Developed by Drs. Manuelito Triplett, Penny Millan, Segundo Gomes and colleagues, with an educational kenji from [employer]. Thrive Questionnaire Date Thrive assessed: 10/19/24 I am a: Patient What is your living situation today?: I have a steady place to live Within the past 12 months, did the food you bought not last and you didn't have the money to get more?: Often true Within the past 12 months, did you worry whether your food would run out before you got money to buy more?: Never true Do you have trouble paying for medicines?: No Do you have trouble getting transportation to medical appointments?: No Do you have trouble paying your heating and electricity bill?: No Do you have trouble taking care of your child, family member or friend?: No Do you have trouble with day-to-day activities such as bathing, preparing meals, shopping, managing finances, etc.?: No Are you currently unemployed and looking for a job?: Yes Are you interested in more education?: Yes Please select the resources that you would like help with: Job search/training Currently or been in a relationship where the following occur: No concerns reported THRIVE Score: 1 AUDIT C Alcohol Use Questionnaire (AUDIT-C) 1. How often do you have a drink containing alcohol?: Never 3. How often do you have six or more drinks on one occasion?: Never Total Score: 0 Score Reviewed/Action Taken: Yes RAMEZ-7 AMB Questionnaire RAMEZ-7 Date RAMEZ - 7 assessed: 10/19/24 Feeling nervous, anxious, or on edge: 1 = Several days Not being able to stop or control worryin = Not at all Worrying too much about different things: 1 = Several days Trouble relaxin = Not at all Being so restless that it is hard to sit still: 0 = Not at all Becoming easily annoyed or irritable: 0 = Not at all Feeling afraid as if something awful might happen: 0 = Not at all Total RAMEZ-7 score (0-4 normal; 5-9 mild; 10-14 moderate; 15-21 severe): 2 Source: Developed by Drs. Manuelito Triplett, Penny Millan, Segundo Gomes and colleagues, with an educational kenji from [employer]. RAMEZ-7 Assessment Billing RAMEZ-7 Assessment Tool: RAMEZ-7 Assessment 77790 Physical exam (Primary Care) Vital Signs: Last Vital Signs Temp 97.4 F 10/19/24 08:08 Pulse 72 10/19/24 08:08 Resp 12 10/19/24 08:08 BP 122/70 10/19/24 08:08 Pulse Ox 99 10/19/24 08:08 Oxygen Delivery Method Room Air 10/19/24 08:08 BMI result Body Mass Index 36.0 BMI Assessment/Plan discussion: High BMI High, discussed plan: lifestyle Tobacco/Smoking Status: Tobacco use Status Tobacco use date assessed 10/19/24 10/19/24 08:05 Patient Tobacco Use Status Never used Tobacco 10/19/24 08:04 e-Cigarette/Vaping Use Never Used 10/19/24 08:04 PHQ-9: PHQ-9 Score PHQ-9: Total score 3 10/19/24 08:04 Depression Screening Interpretation: Negative Thrive Assessment: Date of Thrive Assessment Date Thrive assessed 10/19/24 10/19/24 08:04 Currently or been in a relationship where the following occur: No concerns reported Eyes Pupils: Equal, round and reactive pupils present General: Yes no CVA tenderness Back/Spine/Pelvis Back: no CVA tenderness Cervical Spine: cervical ROM normal Thoracic/Lumbar Spine: thoracic and lumbar spine normal to inspection, thoraco- lumbar ROM normal, paraspinal muscle tenderness on the left in the lower lumbar and straight leg raise positive (bilat causing pain in left low back ) Sacroiliac joints: bilaterally nontender Neuro Cranial nerves: Yes CN's II-XII intact bilaterally, Yes Intact sense of smell present and Yes Equal, round and reactive pupils present Gait exam (Neuro): Normal gait present Motor exam (neuro): 5/5 motor strength present throughout Sensory Exam: double simultaneous stimulation for sensation normal Deep tendon reflexes (DTR's): Right triceps reflex intensity grade: 2+, Left triceps reflex intensity grade: 2+, Rt Biceps (C5, C6): 2+, Left biceps reflex intensity grade: 2+, Right brachioradialis reflex intensity grade: 2+, Left brachioradialis reflex intensity grade: 2+, Right patellar reflex intensity grade: 2+, Left patellar reflex intensity grade: 2+, Right ankle reflex int ensity grade: 2+ and Left ankle reflex intensity grade: 2+ Extrem General: Yes normal to inspection and Yes capillary refill normal Right upper extremity: wrist Details: normal to inspection, tenderness Location: of the dorsal wrist, normal ROM, normal vascular exam, radial pulse present Details: 2+, ulnar pulse present Details: 2+, normal Blake's test, Tinel's negative, Phalen's negative and other (pain w palp across dorsum of wrist) Results Reviewed Results Reviewed: [address] [address] XRay Report Signed Patient: Audrey Cramer MR#: [id number] : 1975 Acct:[id number] Age/Sex: 48 / F ADM Date: 04/28/24 Loc: [facility] Attending Dr: Yari BARNETT Ordering Physician: Yari Sosa Date of Service: 04/28/24 Procedure(s): XR cervical spine w flex/ext Accession Number(s): [id number] cc: Yari Sosa; Carissa HarperP-~ EXAMINATION: XR CERVICAL SPINE CLINICAL INFORMATION: Pain in neck for a while and no known injury. Cervicalgia M54.2. COMPARISON: None available TECHNIQUE: 5 views of the cervical spine, inclusive of flexion and extension views, were obtained. FINDINGS: Normal vertebral body alignment. There is mild degenerative disc disease. No significant listhesis on flexion and extension views. The prevertebral soft tissues are unremarkable. Lateral masses are symmetric. Lung apices appear clear. XR/XR cervical spine w flex/ext IMPRESSION: Mild degenerative disc disease in the cervical spine. Electronically signed by: Manuelito Diez MD 06/10/2024 12:26 PM EST RP Coding Level of Care Code Est Pt Level 4 (48954) Est Pt Prev Care 40-64y(02576) Diagnoses Adult general medical exam Z00.00 Obesity (BMI 30-39.9) E66.9 Complex ovarian cyst N83.299 Localized edema R60.0 Edema type: localized Cervicogenic headache G44.86 Headache type: cervicogenic headache Hepatic steatosis K76.0 Mixed hyperlipidemia E78.2 Hyperlipidemia type: mixed hyperlipidemia Primary insomnia F51.01 Insomnia type: primary Low vitamin D level R79.89 Mild intermittent asthma in adult without complication J45.20 Renal cyst, right N28.1 Venous insufficiency of both lower extremities I87.2 Laboratory exam ordered as part of routine general medical examination Z00.00 Chronic left-sided low back pain without sciatica M54.50; G89.29 Chronicity: chronic Back pain laterality: left Sciatica presence: without sciatica Right wrist pain M25.531 Additional Codes RAMEZ-7 Assessment Billing - RAMEZ-7 Assessment Tool: RAMEZ-7 Assessment 03761 ([id number]) PHQ-9 - 91015 - PHQ-9 Billing: Yes ([id number]) Assessment & Plan Assessment & Plan (1) Adult general medical exam: Onset Date: ~10/19/24 Code(s): Z00.00 - Encounter for general adult medical examination without abnormal findings Category: Medical (2) Obesity (BMI 30-39.9): Code(s): E66.9 - Obesity, unspecified Category: Medical (3) Complex ovarian cyst: Code(s): N83.299 - Other ovarian cyst, unspecified side Category: Medical (4) Edema: Comment: ble, resolved Code(s): R60.9 - Edema, unspecified Category: Medical Qualifiers: Edema type: localized Qualified Code(s): R60.0 - Localized edema (5) Headache: Code(s): R51.9 - Headache, unspecified Category: Medical Qualifiers: Headache type: cervicogenic headache Qualified Code(s): G44.86 - Cervicogenic headache (6) Hepatic steatosis: Comment: Followed by GI. We will update LFTs today. Code(s): K76.0 - Fatty (change of) liver, not elsewhere classified Category: Medical (7) Hyperlipidemia: Comment: 09/2023 start atorvastatin 40mg QD, repeat labs Code(s): E78.5 - Hyperlipidemia, unspecified Category: Medical Qualifiers: Hyperlipidemia type: mixed hyperlipidemia Qualified Code(s): E78.2 - Mixed hyperlipidemia (8) Insomnia: Comment: Sleep maintenance insomnia. Hydroxyzine 25 mg p.o. q.h.s. p.r.n..no effective, using melatonin + relief Code(s): G47.00 - Insomnia, unspecified Category: Medical Qualifiers: Insomnia type: primary Qualified Code(s): F51.01 - Primary insomnia (9) Low vitamin D level: Comment: Currently maintained on a vitamin-D supplement. Code(s): R79.89 - Other specified abnormal findings of blood chemistry Category: Medical (10) Mild intermittent asthma in adult without complication: Comment: Not currently on any medications. Well controlled. Code(s): J45.20 - Mild intermittent asthma, uncomplicated Category: Medical (11) Renal cyst, right: Comment: Managed by Urology. Code(s): N28.1 - Cyst of kidney, acquired Category: Medical (12) Venous insufficiency of both lower extremities: Comment: negative vascular work up Code(s): I87.2 - Venous insufficiency (chronic) (peripheral) Category: Medical (13) Laboratory exam ordered as part of routine general medical examination: Code(s): Z00.00 - Encounter for general adult medical examination without abnormal findings Category: Medical (14) Low back pain: Code(s): M54.50 - Low back pain, unspecified Category: Medical Qualifiers: Chronicity: chronic Back pain laterality: left Sciatica presence: without sciatica Qualified Code(s): M54.50 - Low back pain, unspecified; G89.29 - Other chronic pain (15) Right wrist pain: Code(s): M25.531 - Pain in right wrist Category: Medical Plan . Orders: Orders Hemoglobin A1c Today K76.0 - Fatty (change of) liver, not elsewhere classified, R79.89 - Other specified abnormal findings of blood chemistry, Z00.00 - Encounter for general adult medical examination without abnormal findings Microalbumin, Random (w Creat) Today K76.0 - Fatty (change of) liver, not elsewhere classified, R79.89 - Other specified abnormal findings of blood chemistry, Z00.00 - Encounter for general adult medical examination without abnormal findings TSH reflex Free T4 Today K76.0 - Fatty (change of) liver, not elsewhere classified, R79.89 - Other specified abnormal findings of blood chemistry, Z00.00 - Encounter for general adult medical examination without abnormal findings Vitamin B12 and Folate Today K76.0 - Fatty (change of) liver, not elsewhere classified, R79.89 - Other specified abnormal findings of blood chemistry, Z00.00 - Encounter for general adult medical examination without abnormal findings Vitamin D 25-OH Total Today K76.0 - Fatty (change of) liver, not elsewhere classified, R79.89 - Other specified abnormal findings of blood chemistry, Z00.00 - Encounter for general adult medical examination without abnormal findings Comprehensive Met. Panel Today K76.0 - Fatty (change of) liver, not elsewhere classified, R79.89 - Other specified abnormal findings of blood chemistry, Z00.00 - Encounter for general adult medical examination without abnormal findings Lipid Panel Today K76.0 - Fatty (change of) liver, not elsewhere classified, R79.89 - Other specified abnormal findings of blood chemistry, Z00.00 - Encounter for general adult medical examination without abnormal findings Lipid Panel 6 Months E78.2 - Mixed hyperlipidemia Comprehensive Met. Panel 6 Months E78.2 - Mixed hyperlipidemia Referrals Medical Weight Management Referral E66.9 - Obesity, unspecified Chiropractic Referral M54.50 - Low back pain, unspecified Hand Surgery Referral M25.531 - Pain in right wrist Medications: Refilled cholecalciferol (vitamin D3) 100 mcg (2 x 50 mcg (2,000 unit)) PO DAILY 90 days 180 tabs 2RF R79.89 - Other specified abnormal findings of blood chemistry pantoprazole take one tablet half an hour before breakfast 40 mg PO DAILY 90 tabs 2RF K21.9 - Gastro-esophageal reflux disease without esophagitis topiramate 1 tab qhs x's 1 wk, then 2 tabs qhs x's 1 wk, then 3 tabs qhs x's 1 wk, then 4 tabs qhs. orally bedtime; 30 days 120 tabs 3RF Discontinued hydroxyzine HCl Discontinued Reason: Patient no longer taking 25 mg PO BEDTIME PRN 30 tabs 3RF insomnia hydroxyzine HCl Discontinued Reason: Patient Completed Course 10 mg PO QID 10 tabs 0RF famotidine Discontinued Reason: Patient no longer taking 40 mg PO BEDTIME 90 tabs 3RF K21.9 - Gastro-esophageal reflux disease without esophagitis topiramate Discontinued Reason: Patient no longer taking 1 tab qhs x's 1 wk, then 2 tabs qhs x's 1 wk, then 3 tabs qhs x's 1 wk, then 4 tabs qhs. orally bedtime; 30 days 120 tabs 3RF Patient Instructions: Health screenings for women You should visit your health care provider from time to time, even if you are healthy. The purpose of these visits is to: Screen for medical issues Assess your risk for future medical problems Encourage a healthy lifestyle Update vaccinations and other preventive care services Help you get to know your provider in case of an illness Information Even if you feel fine, you should still see your provider for regular checkups. These visits can help you avoid problems in the future. For example, the only way to find out if you have high blood pressure is to have it checked regularly. High blood sugar and high cholesterol levels also may not have any symptoms in the early stages. A simple blood test can check for these conditions. There are specific times when you should see your provider or receive specific health screenings. The [place] Preventive Services Task Force publishes a list of recommended screenings. Below are screening guidelines for women ages 18 to 39. BLOOD PRESSURE SCREENING Your blood pressure should be checked at least once every 3 to 5 years if: Your blood pressure is in the normal range (top number less than 120 mm Hg and bottom number less than 80 mm Hg) You don't have risk factors for high blood pressure Ask your provider if you need your blood pressure checked more often if: The top number is 120 to 129 mm Hg or the bottom number is 70 to 79 mm Hg You have diabetes, heart disease, kidney problems, are overweight, or have certain other health conditions You have a first-degree relative with high blood pressure You are Black You had high blood pressure during a If the top number is 130 mm Hg or greater or the bottom number is 80 mm Hg or greater, this is considered stage 1 hypertension. Schedule an appointment with your provider to learn how you can reduce your blood pressure. Watch for blood pressure screenings in your area. Ask your provider if you can stop in to have your blood pressure checked. BREAST CANCER SCREENING Experts do not agree about the benefits of breast self-exams in finding breast cancer or saving lives. Talk to your provider about what is best for you. A screening mammogram is not recommended for most women under age 40. Your provider may discuss and recommend mammograms, MRI scans, or ultrasounds if you have an increased risk for breast cancer, such as: A mother or sister who had breast cancer at a young age (most often starting screening earlier than the age the close relative was diagnosed) You carry a high-risk genetic marker CERVICAL CANCER SCREENING Cervical cancer screening should start at age 21 years unless your provider advises otherwise. After the first test: Women ages 21 through 29 should have a Pap test every 3 years. Exoprts do not agree on whether HPV testing is recommended for this age group. Women ages 30 through 65 should be screened with either a Pap test every 3 years or the HPV test every 5 years or both tests every 5 years (called cotesting ). Women who have been treated for precancer (cervical dysplasia) should continue to have Pap tests for 20 years after treatment or until age 65, whichever is longer. If you have had your uterus and cervix removed (total hysterectomy), and you have not been diagnosed with cervical cancer or precancer (high grade cervical neoplasia), you do not need cervical cancer screening. CHOLESTEROL SCREENING Cholesterol screening should begin at: Age 45 for women with no known risk factors for coronary heart disease Age 20 for women with known risk factors for coronary heart disease Repeat cholesterol screening should take place: Every 5 years for women with normal cholesterol levels More often if changes occur in lifestyle (including weight gain and diet) More often if you have diabetes, heart disease, kidney problems, or certain other conditions DIABETES SCREENING You should be screened for diabetes starting at age 35 and then repeated every 3 years if you have no risk factors for diabetes. Screening may need to start earlier and be repeated more often if you have other risk factors for diabetes, such as: You have a first degree relative with diabetes. You are overweight or have obesity. You have high blood pressure, prediabetes, or a history of heart disease. Screening for diabetes should be done if you are planning to become and you are overweight and have other risk factors such as high blood pressure. DENTAL EXAM Go to the dentist once or twice every year for an exam and cleaning. Your dentist will evaluate if you need more frequent visits. EYE EXAM Have an eye exam every 5 to 10 years before age 40. If you have vision problems, have an eye exam every 2 years or more often if recommended by your provider. You should have an eye exam that includes an examination of your retina (back of your eye) at least every year if you have diabetes. IMMUNIZATIONS Commonly needed vaccines include: Flu shot: get one every year. COVID-19 vaccine: ask your provider what is best for you. Tetanus-diphtheria and acellular pertussis (Tdap) vaccine: have one at or after age 19 as one of your tetanus-diphtheria vaccines if you did not receive it as an adolescent. Tetanus-diphtheria: have a booster (or Tdap) every 10 years. Varicella vaccine: receive 2 doses if you never had chickenpox or the varicella vaccine. Hepatitis B vaccine: receive 2, 3, or 4 doses, depending on your exact circumstances. Measles, mumps, and rubella (MMR) vaccine: receive 1 to 2 doses if you are not already immune to MMR. Your provider can tell you if you are immune. Ask your provider about the human papillomavirus (HPV) vaccine if: You have not received the HPV vaccine in the past You have not completed the full vaccine series (you should catch up on this shot) Ask your provider if you should receive other immunizations if you have certain health problems that increase your risk for some diseases such as pneumonia. INFECTIOUS DISEASE SCREENING Women who are sexually active should be screened for chlamydia and gonorrhea up until age 25. Women 25 years and older should be screened for chlamydia and gonorrhea if at high risk. Screening for hepatitis C: All adults ages 18 to 79 should get a one-time test for hepatitis C. people should be screened at every . Screening for human immunodeficiency virus (HIV): All people ages 15 to 65 should get a one-time test for HIV. Depending on your lifestyle and medical history, you may also need to be screened for infections such as syphilis and HIV, as well as other infections. PHYSICAL EXAM All adults should visit their provider from time to time, even if they are healthy. The purpose of these visits is to: Screen for disease Assess your risk of future medical problems Encourage a healthy lifestyle Update your vaccinations and other preventive care services Maintain a relationship with a provider in case of an illness Your height, weight, and BMI should be checked at every exam. During your exam, your provider may ask you about: Depression and anxiety Diet and exercise Alcohol and tobacco use Safety issues, such as using seat belts, smoke detectors, and intimate partner violence Your medicines and risk for interactions SKIN SELF-EXAM Your provider may check your skin for signs of skin cancer, especially if you're at high risk, such as if you: Have had skin cancer before Have close relatives with skin cancer Have a weakened immune system OTHER SCREENING Talk with your provider about colon cancer screening if you have a strong family history of colon cancer or polyps, or if you have had inflammatory bowel disease or polyps yourself. Routine bone density screening of women under 40 is not recommended.
[2024-10-19 08:08] VITALS: BP 122/70; PULSE 72; RESP 12; TEMP 36.3; O2SAT 99; BMI 36.0
== END 2024-10-19 08:48 | disposition home or self-care (01) ==
LOC: HO.HMCFM 08:02
PROVIDERS: PCP Nurse Practitioner Family; Visit Provider Nurse Practitioner Family
DX: Z00.00 Encounter for general adult medical examination without abnormal findings (principal); R60.0 Localized edema; E66.9 Obesity, unspecified; Z68.36 Body mass index [BMI] 36.0-36.9, adult; G44.86 Cervicogenic headache; E78.2 Mixed hyperlipidemia; F51.01 Primary insomnia; K76.0 Fatty (change of) liver, not elsewhere classified; N83.299 Other ovarian cyst, unspecified side; R79.89 Other specified abnormal findings of blood chemistry; J45.20 Mild intermittent asthma, uncomplicated; N28.1 Cyst of kidney, acquired

== ENCOUNTER → 2024-10-19 08:01 | Outpatient (BNVA) | payer OTHER, SELFPAY | PROVIDERS: PCP Nurse Practitioner Family; Visit Provider Nurse Practitioner Family | DX: Z00.00 Encounter for general adult medical examination without abnormal findings (principal); E66.01 Morbid (severe) obesity due to excess calories; Z68.36 Body mass index [BMI] 36.0-36.9, adult; N83.299 Other ovarian cyst, unspecified side; R60.0 Localized edema; G44.86 Cervicogenic headache; K76.0 Fatty (change of) liver, not elsewhere classified; E78.2 Mixed hyperlipidemia; F51.01 Primary insomnia; R79.89 Other specified abnormal findings of blood chemistry; J45.20 Mild intermittent asthma, uncomplicated; N28.1 Cyst of kidney, acquired; I87.2 Venous insufficiency (chronic) (peripheral); M54.50 Low back pain, unspecified; G89.29 Other chronic pain; M25.531 Pain in right wrist; K21.9 Gastro-esophageal reflux disease without esophagitis; Z13.31 Encounter for screening for depression; Z13.30 Encounter for screening examination for mental health and behavioral disorders, unspecified | CPT/HCPCS: 96127; 99212; 99396 ==

== ENCOUNTER 2024-10-19 08:53 | Outpatient (REF) | payer OTHER, SELFPAY ==
[2024-10-19 11:39] LABS: Estimated Average Glucose 103 mg/dL; Hemoglobin A1c % 5.2 % (<6.0)
[2024-10-19 11:54] LABS: Creatinine Urine 157.51 mg/dL
[2024-10-19 12:03] LABS: Alanine Aminotransferase 41 U/L (0-31); Albumin Level 4.4 g/dL (3.5-5.0); Alkaline Phosphatase 65 U/L (39-117); Anion Gap 10 (12-20); Aspartate Amino Transferase 24 U/L (5-31); Bilirubin Total 0.4 mg/dL (0.0-1.0); Blood Urea Nitrogen 13 mg/dL (9-16); Calcium 9.3 mg/dL (8.4-10.2); Carbon Dioxide 28 mmol/L (22-29); Chloride 105 mmol/L (96-108); Cholesterol 258 mg/dL (<200); Estimated Glomerular Filt Rate > 60; Glucose Random 94 mg/dL (60-115); HDL Cholesterol 46 mg/dL (>40); LDL Cholesterol Calculated 186 mg/dL (<100); Potassium 3.8 mmol/L (3.3-5.1); Sodium 139 mmol/L (135-145); Total Protein 7.3 g/dL (6.5-8.0); Triglycerides 130 mg/dL (<150)
[2024-10-19 12:07] LABS: TSH reflex Free T4 2.17 uIU/mL (0.32-4.0); Vitamin D 25-OH Total 44.2 ng/mL (>30)
[2024-10-19 12:19] LABS: Folate 12.3 ng/mL (> or = 4.0); Vitamin B12 548 pg/mL (200-900)
== END 2024-10-19 08:54 | disposition home or self-care (01) ==
LOC: HO.WFDLDS 08:53
PROVIDERS: Visit Provider Nurse Practitioner Family
DX: Z00.00 Encounter for general adult medical examination without abnormal findings (principal); R79.89 Other specified abnormal findings of blood chemistry
CPT/HCPCS: 36415; 80053; 80061; 82043; 82306; 82570; 82607; 82746; 83036; 84443

== ENCOUNTER 2025-01-05 08:36 | Outpatient (REF) | payer OTHER, SELFPAY ==
--- NOTE | ~2025-01-05 | XR_ITS ---
EXAMINATION: XR WRIST 3 OR MORE VIEWS RIGHT HISTORY: M25.531 - Pain in right wrist COMPARISON: There are no prior studies available for comparison. FINDINGS: Three views of the right breast are submitted. Osseous mineralization is normal. There is no fracture or dislocation. The joint spaces are preserved. The soft tissues are unremarkable. XR/XR wrist RT min 3V IMPRESSION: Unremarkable examination of the right wrist. Electronically signed by: Manuelito Esteban MD 01/05/2025 10:40 AM EDT
== END 2025-01-05 08:37 | disposition home or self-care (01) ==
LOC: HO.HOSX 08:36
PROVIDERS: Visit Provider Orthopaedic Surgery
DX: M77.8 Other enthesopathies, not elsewhere classified (principal); R20.0 Anesthesia of skin; R20.2 Paresthesia of skin; M25.531 Pain in right wrist
CPT/HCPCS: 73110; 99202

== ENCOUNTER 2025-01-05 09:45 | Outpatient (AMB) | payer OTHER, SELFPAY ==
[2025-01-05 09:57] VITALS: BMI 35.6
--- NOTE | 2025-01-05 09:57 | A.OFFVIS_ITS ---
Vital Signs 01/05/25 09:57 Height 5 ft 3 in Weight 201 lb BMI 35.6 Intake Visit Reasons: N/P -Pain in right wrist Intake Note: Audrey 49 yr old right hand dominant Nepali speaking female who is unemployed , presents today for a new patient visit for her right wrist pain. States pain started approx 6-7 month ago and has not improved. States pain is all around her wrist, weakness and pain with ROM exercise. Pain is worse with turning and twisting of the wrist. No injury but she does recall falling down in April 2024 and felt mild pain. Patient has tried and failed OTC topical cream in the past. She is also having numbness, tingling mainly on her right hand. 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 She complains of pain about her entire right wrist for ~7 months now. She says this is worse with ROM, particularly twisting activities. She also complains of weakness in her wrist. She says she fell in 04/2024 and had mild wrist pain, but denies other injuries. She also complains of numbness in her right hand. Symptoms intermittent, primarily at night. [facility] Medical History (Updated 01/05/25 @ 10:30 by Navin Conley) Right elbow pain Left knee pain Lateral epicondylitis, right elbow PMB (postmenopausal bleeding) Morbid obesity with BMI of 40.0-44.9, adult Surgical History Hx of bladder endoscopy Hx of colonoscopy (~02/2023) H/O breast surgery History of cholecystectomy Family History Mother Fibromyalgia Hypothyroidism Father Prostate cancer Hypertension Hypothyroidism Paternal Grandmother History of breast cancer Social History (Updated 01/05/25 @ 10:04 by TARA Ellington) Housing: House Patient Tobacco Use Status: Never used Tobacco e-Cigarette/Vaping Use: Never Used service: No Current occupational status: unemployed Current occupation: right hand Cognitive needs: No Hearing needs: No Vision needs: No Review of Systems Const All systems reviewed & are unremarkable except as noted in HPI and below Physical Exam Vital Signs: BMI result Body Mass Index 35.6 Const General: cooperative, healthy appearing and no acute distress Orientation/consciousness: patient oriented x3 HEENT Head: Yes normocephalic and Yes atraumatic Eyes EOM: EOMs intact bilaterally Resp Effort & Inspection: normal respiratory effort and able to speak in complete sentences Cardio Jugular venous distension: no JVD Skin General skin exam: turgor normal Rashes: no rashes Neuro General: patient oriented x3 Extrem Other: Evaluation of Right Upper Extremity: The patient is alert, oriented, and in no acute distress Neuro: Median, Ulnar, Radial nerves motor and sensory intact and sensation is normal to the tips of all digits Vascular: Cap refill brisk ROM: She can make a fist and extend all her digits Full & symmetrical wrist ROM DRUJ stable Skin: No lacerations or abrasions. General: No Ecchymosis. No swelling No Erythema or evidence of infection. Using a 1-10 pain scale: 5 EDC tendon 6 ECRL & ECRB tendons 8 wrist extensor, EDC, ECRL, ECRB tendons with resisted wrist extension 4 Snuffbox 5 FCR tendon 6 FCU tendon 5 Pisiform 6 Fovea Radiographs: 3 views of the right wrist were taken and viewed by me today in clinic. They show no fractures or dislocations Psych Appearance: grossly normal Affect: normal affect Attitude: cooperative Assessment & Plan Assessment & Plan (1) Right wrist tendinitis: Code(s): M77.8 - Other enthesopathies, not elsewhere classified Category: Medical (2) Numbness and tingling in right hand: Code(s): R20.0 - Anesthesia of skin; R20.2 - Paresthesia of skin Category: Medical Plan Assessment & Plan: 1. Right wrist tendinitis Onset ~05/2024 I educated her about this condition I discussed treatment options I recommend activity modification, OT, and bracing She was fitted for a velcro wrist splint, to be worn with heavy daily activities. She should remove this when at home at rest & at night She will work on ROM exercises & stretching at home I ordered OT hand therapy to work on stretching & normalizing function She will follow up in 6 weeks with MUNIR Chew to see how she is doing 2. Right hand numbness Symptoms intermittent, primarily at night I ordered a NCS to assess for peripheral nerve compression She will follow up when completed for review Scribed for Brenna Bueno MD by Navin Conley, medical geneticist, on 01/05/25 at 10:15 AM, EST. Orders: Orders NE nerve conduction velocity Today R20.0 - Anesthesia of skin, R20.2 - Paresthesia of skin XR wrist RT min 3V Today M25.531 - Pain in right wrist NE electromyogram (EMG) Today R20.0 - Anesthesia of skin, R20.2 - Paresthesia of skin OT Evaluation and Treatment Today M77.8 - Other enthesopathies, not elsewhere classified, R20.0 - Anesthesia of skin, R20.2 - Paresthesia of skin Coding Level of Care Code New Pt Level 3 (75877) Diagnoses Right wrist tendinitis M77.8 Numbness and tingling in right hand R20.0; R20.2
== END 2025-01-05 10:34 | disposition home or self-care (01) ==
LOC: HO.HOS 09:46
PROVIDERS: PCP Nurse Practitioner Family; Visit Provider Orthopaedic Surgery
DX: M77.8 Other enthesopathies, not elsewhere classified (principal); R20.0 Anesthesia of skin; R20.2 Paresthesia of skin
CPT/HCPCS: 99203

== ENCOUNTER → 2025-01-05 09:48 | Outpatient (BNV) | payer OTHER, SELFPAY | PROVIDERS: Visit Provider Radiology Diagnostic Radiology | DX: M25.531 Pain in right wrist (principal) | CPT/HCPCS: 73110 ==

== ENCOUNTER 2025-01-15 09:49 | Outpatient (RCR) | payer OTHER, SELFPAY ==
--- NOTE | 2025-01-15 10:45 | MHC.OT.EP ---
[facility] Office [address] [phone] F: [phone] F: [phone] Occupational Therapy Plan of Care Patient Name: Audrey Pearce Date of Evaluation: 01/15/25 Diagnosis: Right hand pain, numbness and tingling Pain Location: 7/10 resting pain around whole wrist, sharp Tender to palpate all areas of wrist Pain Score: 7 Pain Scale Used: Numeric (0 - 10) Aggravating Factors: Forceful use Alleviating Factors: Brace, rubbing/massage, Advil Assessment: 49 yo female w/ ~7 months pain in right wrist. She had fall in April of 2024 w/ mild pain at the time. She was referred to ortho and seen by Dr Bueno. X-ray (-) for acute changes, she had moderate pain and reports mild numbness. EMG ordered (03/04) for further nerve assessment and pt referred to OT for continued conservative management. On assessment today, she continues to report moderate-high pain through wrist, no specific area noted and tender to palpate throughout with no area moreso than another. Range, coordination and gross grasp WNL. She does have irritation over radial wrist and has slightly decreased sensation in median nerve distribution w/ (+) Phalens and Tinel's. We will cont OT to normalize function and educate of activity modification and progression of functional strengthening. Frequency and Duration: The patient will be seen 2x/wk for 4 weeks Short Term Goals: Good follow through w/ orthosis wear Good follow through w/ activity modification Pt to report <4/10 pain w/ light daily activities Ind w/ HEP Snf Goals: Pain free wrist at rest Pt to report ease w/ sleep symptoms w/ positional modifications QuickDASH score <30 pts Treatment Plan: Therapeutic Exercise Therapeutic Activity Home Exercise Program Splinting Neuro Re-ed Patient Education ADL Training Ultrasound Paraffin Fluidotherapy MHP Cold Packs Joint Mobilization Soft Tissue Mobilization Kinesiotaping Electronically Signed By: Della Boss OTR/L CHT Please Sign and return to therapist. Thank you once again for your referral.
--- NOTE | 2025-02-01 08:51 | MHC.OT.DC ---
[facility] Office [address] [phone] F: [phone] F: [phone] Occupational Therapy Discharge Note Patient Name: Audrey Pearce Provider: Dr Brenna Bueno Diagnosis: Right hand pain, numbness and tingling Date of Evaluation: 01/15/25 Date of Discharge: 02/01/25 Treatments to Date: 1 Cancellations to Date: No Shows to Date: 3 Discharge Status: Visit Non-compliance Discharge Summary: Audrey was seen for initial OT assessment of right hand and wrist pain with and c/o mild numbness. She has missed all scheduled follow up therapy visits and we will be discharging from services at this time. From initial OT eval 01/15/25: 49 yo female w/ ~7 months pain in right wrist. She had fall in April of 2024 w/ mild pain at the time. She was referred to ortho and seen by Dr Bueno. X-ray (-) for acute changes, she had moderate pain and reports mild numbness. EMG ordered (03/04) for further nerve assessment and pt referred to OT for continued conservative management. On assessment today, she continues to report moderate-high pain through wrist, no specific area noted and tender to palpate throughout with no area moreso than another. Range, coordination and gross grasp WNL. She does have irritation over radial wrist and has slightly decreased sensation in median nerve distribution w/ (+) Phalens and Tinel's. We will cont OT to normalize function and educate of activity modification and progression of functional strengthening. Electronically Signed By: HANS Judd/Andres CHT Reviewed/agree with student documentation: Therapist: Please Sign and return to therapist, thank you for your referral.
== END 2025-02-01 09:00 | disposition home or self-care (01) ==
LOC: HO.OT 09:49
PROVIDERS: PCP Nurse Practitioner Family; Visit Provider Orthopaedic Surgery
DX: M77.8 Other enthesopathies, not elsewhere classified (principal); R20.0 Anesthesia of skin; R20.2 Paresthesia of skin
CPT/HCPCS: 97165

== ENCOUNTER 2025-01-28 09:39 | Outpatient (REF) | payer OTHER, SELFPAY | END 2025-01-28 09:40 | disposition home or self-care (01) | LOC: HO.MAMMO 09:39 | PROVIDERS: PCP Nurse Practitioner Family; Visit Provider Nurse Practitioner Family | DX: Z12.31 Encounter for screening mammogram for malignant neoplasm of breast (principal) | CPT/HCPCS: 77063; 77067 ==

== ENCOUNTER → 2025-01-28 09:45 | Outpatient (BNV) | payer OTHER, SELFPAY | PROVIDERS: PCP Nurse Practitioner Family; Visit Provider Internal Medicine | DX: Z12.31 Encounter for screening mammogram for malignant neoplasm of breast (principal) | CPT/HCPCS: 77063; 77067 ==

== ENCOUNTER 2025-01-29 08:19 | Outpatient (AMB) | payer OTHER, SELFPAY ==
--- NOTE | 2025-01-29 13:11 | A.OFFVIS_ITS ---
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* Residue Furnace Operator Required: Yes Residue Furnace Operator Services: Residue Furnace Operator Present Information Interpreted: clinical only Allergies Penicillins (PCN) Adverse Reaction (Verified 01/29/25 13:13) Rash Medication List - Last Reconciled 01/29/25 by Josue Paredes MD atorvastatin 80 mg PO BEDTIME cholecalciferol (vitamin D3) 100 mcg (2 x 50 mcg (2,000 unit)) PO DAILY 90 days pantoprazole 40 mg PO DAILY HPI HPI 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 *EMT INTERMEDIATE*: Details: Start time: 1.02pm, End time: 1.47pm ?I spent 40 minutes speaking with the patient on the phone plus an additional 5 minutes reviewing and updating records for a total of 45 minutes HPI Comments Details: Previous weight loss efforts: diet and OTC medications Wakes up: 6.30am, Sleeps: 12am Breakfast: 10am (ham, eggs, bread, cheese) Lunch: skips Dinner: 7-8pm (rice, potatoes, meat, chicken) Snacks: snacks between breakfast and dinner (burger, popcorn, cookie) Exercise: Gym membership Beverages: Coffee (1 cup/d), Tea: none, Soda: Coke: 2-3/wk, Juice: none, ETOH: none PFSH Medical History (Updated 01/29/25 @ 13:16 by Josue Paredes MD) GERD (gastroesophageal reflux disease) Obesity (BMI 30-39.9) Right elbow pain Left knee pain Lateral epicondylitis, right elbow PMB (postmenopausal bleeding) Morbid obesity with BMI of 40.0-44.9, adult Surgical History Hx of bladder endoscopy Hx of colonoscopy (~02/2023) H/O breast surgery History of cholecystectomy Family History Mother Fibromyalgia Hypothyroidism Father Prostate cancer Hypertension Hypothyroidism Paternal Grandmother History of breast cancer Social History (Updated 01/05/25 @ 10:04 by TARA Ellington) Housing: House Patient Tobacco Use Status: Never used Tobacco e-Cigarette/Vaping Use: Never Used service: No Current occupational status: unemployed Current occupation: right hand Cognitive needs: No Hearing needs: No Vision needs: No Telehealth Telehealth Telehealth Platform: Telephone Location of provider rendering services: practice address Location of patient: address on file Patient Identification confirmed using: Name, : Yes Telehealth method: voice only Patient verbally consented to treatment: Yes Patient verbally consented to billing insurance company: Yes Patient informed of any privacy concerns related to visit: Yes Minutes spent on Phone/Video with Pt.: 45 Assessment & Plan Assessment & Plan (1) Obesity (BMI 30-39.9): Code(s): E66.9 - Obesity, unspecified Category: Medical Plan: 1. As we discussed, based on your present BMI you are approximately 60lbs overweight. In my opinion, for any weight loss strategy to be successful should have a high probability to help you lose at least 50lbs out of 60lbs of the extra weight you carry. We discussed in detail the available therapeutic options: 1) our lifestyle intervention program that has an average weight loss of 10% in 3 months.?Some patients continue it for longer and have lost over 50lbs but this is not common. Our lifestyle program can be provided by me. I will provide you with a link to use the aiyana if you choose to do so. We use protein shakes and protein bars to replace some of the meals of the day and cover your appetite better. We will decide together the exact combination. 2) Weight loss medications: these can be used in conjunction with our lifestyle program or you may choose to use them without following a lifestyle program from my program but your own. As we discussed, your insurance requires you to use first the Phentermine. We also discussed that you can self pay for the injections and the cost is $249 for the first month and $499 for any other month thereafter. These payments go to the drug company directly and not to us. 3) We also discussed about the lap sleeve gastrectomy. In my opinion this is the best option to solve your problem based on your situation and should be used in conjunction with the two previous options. A good strategy to make this decision to proceed with surgery, is to set some goals with the lifestyle intervention and medication options: If you don't lose at least 10lbs the first 6 weeks after starting the program or at least 10% in 3 months. ?I emphasized the importance of close follow-up, adherence to instructions and good communication. The surgery does not replace the need to change your lifestlyle which is the cause of the obesity problem. The surgery provides the motivation to try again to change your lifestyle, it reduces the appetite and make the transition to a better lifestyle easier and doubles the amount of weight you would lose compared to doing the lifestyle change without the surgery. You will need to be on a liquid diet with protein shakes for 2 weeks before surgery to maximize weight loss and boost your nutritional status to recover better from surgery and also for the first two weeks after surgery to let the stomach heal before we introduce other foods. After the first 2 weeks we will introduce protein bars and soft foods like scrambled eggs, cottage cheese and yogurt and after the 6th week will introduce meat, fish and cooked vegetables in small amounts. Over time you should be able to eat everything in small amounts. Side effects like nausea, vomiting, heartburn or abdominal pain are not common in the practice unless you are not following in the practice. This operation requires lifetime commitment to following in our practice and communication with me. You will much less weight and experience side effects if you don?t communicate or not following in the practice. Complications are rare and in our practice is about 1/10 of the national average. 4. Nutritional counseling. Start with one premade PREMIER protein (buy at [employer] or [place]) shake (mix 4oz of Premier mixed with 4oz low fat unsweetened almond milk each) at 7am-9am, one protein bar (Fit Crunch protein bar, buy at [place], or [employer]) at 10am-12pm, another premade PREMIER protein shake (mix 4oz of Premier mixed with 4oz low fat unsweetened almond milk each) at 1pm-3pm, another Fit Crunch protein bar,? dinner at 7pm (8 forks of protein and 8 forks of salad/vegetables) and one more premade PREMIER protein shake (mix 4oz of Premier mixed with 4oz low fat unsweetened almond milk at 9pm-11pm. So you do 3 protein shakes, 2 protein bars and one meal per day. Meal to include lean meat (beef, fish, pork, turkey, chicken), or kiswahili yogurt, or egg whites, or beans with a salad with olive oil and fruits (berries, pears, apples, kiwi). Avoid salt, breads, potatoes, rice, pasta, desserts. 5. Each shake would be drunk slowly, like coffee in a period of 2 hours. 6. Cut each bar in 4 pieces and eat each piece in 30min ?to make each bar last 2 hours. 7. I emphasized the importance of measuring accurately the food portion and measure it when serving the food in plate 8. The meal portions include 10 full-size forks of meat and 10 full-size forks of salad. You always eat the meat portion but you can replace up to 5 forks for salad/vegetables with rice, potatoes or pasta, or a fruit ?if you like. The less you do it the better weight loss will be. 9. One full-size fork is what it can be scooped on the fork without falling aside and not what can be bit with the fork. Use regular forks like those you f ind in a typical restaurant. 10.? Please buy the body composition scale we discussed and send me weight measurements as soon as possible and then once a week. Always include your diet and exercise plan. 11. Start treadmill with an incline of 2.0 and speed of 3.0. Increase incline by 1 every 3 min to a max incline of 8.0, stay 3min at 8.0 and then return to 2.0 and repeat same steps until calorie goal is met. Goal is to burn 2000 calories per week on exercise, which means either 300 calories daily, or 400 calories 5 days per week, or 500 calories 4 days per week. 12.?It is important of avoiding and for at least 18 months postoperatively and has been discussed at the infosession. 13. Goal is to lose at least 1.5-2lbs per week 14. Goal to lose at least 10% of your weight, which is about 20lbs. Ultimate weight goal: 180lbs before surgery 15. Please follow the diet plan exactly without any change. If you don't like something about the plan or you feel hungry you need to communicate with me so I can help you revise the plan. You should not change the plan yourself 16. We discussed the potential side-effects of the Phentermine such as irritability, dry mouth, difficulty sleeping, dizziness, numbness in feet and high blood pressure. I asked her to get a blood pressure monitor and measure the blood pressure daily in the morning and evening. She needs to send the blood pressure readings daily and to call the office for blood pressure over 140/80 and she understands that.
[2025-01-29 13:33] VITALS: BMI 35.6
== END 2025-01-29 13:48 | disposition home or self-care (01) ==
LOC: HO.HBS 08:19
PROVIDERS: PCP Nurse Practitioner Family; Visit Provider Surgery
DX: E66.9 Obesity, unspecified (principal)
CPT/HCPCS: 99204

== ENCOUNTER 2025-03-08 13:36 | Outpatient (AMB) | payer OTHER, SELFPAY ==
[2025-03-08 13:40] VITALS: BMI 35.6
--- NOTE | 2025-03-08 13:40 | A.OFFVIS_ITS ---
Vital Signs 03/08/25 13:40 Height 5 ft 3 in Weight 201 lb BMI 35.6 Intake Visit Reasons: OV- Right wrist tendinitis Intake Note: Audrey is a 49 year old right hand dominant female who presents today for a ROM check and follow up of her Right Wrist Tendinitis. She was last evaluated by Dr. Bueno on 01/05/25. At that time she was fitted for a Velcro wrist brace to be worn with daytime activities. Referral to Occupational Therapy was placed and EMG was ordered. Patient reports she is doing well however she was not able to go through with OT due to transportation issue. Balloon Sander Required: Yes Balloon Sander Language: Ballistics Expert Forensic Services: Balloon Sander Present Balloon Sander Name: Krystal [id number] Allergies Penicillins (PCN) Adverse Reaction (Verified 03/08/25 13:43) Rash HPI HPI OV- Right wrist tendinitis: Details: Audrey is a 49 year old right hand dominant female who presents today for a ROM check and follow up of her Right Wrist Tendinitis. She was last evaluated by Dr. Bueno on 01/05/25. At that time she was fitted for a Velcro wrist brace to be worn with daytime activities. Referral to Occupational Therapy was placed and EMG was ordered. Patient reports she is doing well however she was not able to go through with OT due to transportation issue. Patient reports that her pain has improved dramatically since previous evaluation. [facility] Medical History (Updated 01/29/25 @ 13:16 by Josue Paredes MD) GERD (gastroesophageal reflux disease) Obesity (BMI 30-39.9) Right elbow pain Left knee pain Lateral epicondylitis, right elbow PMB (postmenopausal bleeding) Morbid obesity with BMI of 40.0-44.9, adult Surgical History Hx of bladder endoscopy Hx of colonoscopy (~02/2023) H/O breast surgery History of cholecystectomy Family History Mother Fibromyalgia Hypothyroidism Father Prostate cancer Hypertension Hypothyroidism Paternal Grandmother History of breast cancer Social History (Updated 01/05/25 @ 10:04 by TARA Ellington) Housing: House Patient Tobacco Use Status: Never used Tobacco e-Cigarette/Vaping Use: Never Used service: No Current occupational status: unemployed Current occupation: right hand Cognitive needs: No Hearing needs: No Vision needs: No Review of Systems Const All systems reviewed & are unremarkable except as noted in HPI and below Physical Exam Vital Signs: BMI result Body Mass Index 35.6 Const General: cooperative, healthy appearing and no acute distress Orientation/consciousness: patient oriented x3 HEENT Head: Yes normocephalic and Yes atraumatic Eyes EOM: EOMs intact bilaterally Resp Effort & Inspection: normal respiratory effort and able to speak in complete sentences Cardio Jugular venous distension: no JVD Skin General skin exam: turgor normal Rashes: no rashes Neuro General: patient oriented x3 Extrem Other: Evaluation of Right Upper Extremity: The patient is alert, oriented, and in no acute distress Neuro: Median, Ulnar, Radial nerves motor and sensory intact and sensation is normal to the tips of all digits Vascular: Cap refill brisk ROM: She can make a fist and extend all her digits Full & symmetrical wrist ROM DRUJ stable Skin: No lacerations or abrasions. General: No Ecchymosis. No swelling No Erythema or evidence of infection. Vastly improved tenderness to all areas of the right wrist Radiographs: 3 views of the right wrist were taken and viewed by me today in clinic. They show no fractures or dislocations Psych Appearance: grossly normal Affect: normal affect Attitude: cooperative Assessment & Plan Assessment & Plan (1) Right wrist tendinitis: Code(s): M77.8 - Other enthesopathies, not elsewhere classified Category: Medical (2) Numbness and tingling in right hand: Code(s): R20.0 - Anesthesia of skin; R20.2 - Paresthesia of skin Category: Medical Plan Assessment & Plan: 1. Right wrist tendinitis Onset ~05/2024 I educated her about this condition I discussed treatment options I recommend activity modification, OT, and bracing She was fitted for a velcro wrist splint, to be worn with heavy daily activities at last visit, can continue to do this if she experiences pain She will work on ROM exercises & stretching at home Continue OT Follow-up as needed Coding Level of Care Code Est Pt Level 3 (04582) Diagnoses Right wrist tendinitis M77.8 Numbness and tingling in right hand R20.0; R20.2
== END 2025-03-08 14:02 | disposition home or self-care (01) ==
LOC: HO.HOS 13:37
DX: M67.833 Other specified disorders of tendon, right wrist (principal); R20.0 Anesthesia of skin; R20.2 Paresthesia of skin
CPT/HCPCS: 99213

== ENCOUNTER → 2025-03-08 13:36 | Outpatient (BNVA) | payer OTHER, SELFPAY | DX: M77.8 Other enthesopathies, not elsewhere classified (principal); R20.0 Anesthesia of skin; R20.2 Paresthesia of skin | CPT/HCPCS: 99212 ==

== ENCOUNTER 2025-03-25 14:24 | Outpatient (REF) | payer OTHER, SELFPAY ==
--- NOTE | 2025-03-25 14:33 | EMG_ITS ---
Chief complaint: Right wrist and hand pain, numbness Reason for referral: Evaluate for Carpal Tunnel Syndrome Referred by: Dr. Bueno Procedure done: Are upper extremity NCS/EMG Precautions and/or limitations: None The limb temperature was monitored continuously and remained between 32-36 degrees C during the performance of the NCS. Nerve Conduction Studies Anti Sensory Summary Table ?Stim Site NR Onset (ms) Norm Onset (ms) Peak (ms) Norm Peak (ms) O-P Amp (?V) Norm O-P Amp Site1 Site2 Delta-0 (ms) Dist (cm) Fransico (m/s) Norm Fransico (m/s) Right Median Anti Sensory (2nd Digit) Wrist ? 2.5 3.2 <3.6 50.0 >10 Wrist 2nd Digit 2.5 14.0 56 Right Ulnar Anti Sensory (5th Digit) Wrist ? 2.4 3.0 <3.7 45.5 >15.0 Wrist 5th Digit 2.4 14.0 58 Motor Summary Table ?Stim Site NR Onset (ms) Norm Onset (ms) O-P Amp (mV) Norm O-P Amp iAmp (mV) Amp (1st) (%) Site1 Site2 Delta-0 (ms) Dist (cm) Fransico (m/s) Norm Fransico (m/s) Right Median Motor (Abd Poll Brev) Wrist ? 3.4 <3.9 11.7 >4.5 15.0 100.0 Elbow Wrist 3.2 19.0 59 >45 Elbow ? 6.6 11.7 15.0 100.0 Right Ulnar Motor (Abd Dig Minimi) Wrist ? 2.6 <3.0 7.5 >5 10.5 100.0 B Elbow Wrist 2.8 17.0 61 >45 B Elbow ? 5.4 7.8 11.2 104.0 A Elbow B Elbow 1.1 10.0 91 >45 A Elbow ? 6.5 7.7 11.1 102.7 Comparison Summary Table ?Stim Site NR Peak (ms) Norm Peak (ms) P-T Amp (?V) Site1 Site2 Delta-P (ms) Norm Delta (ms) Right Median/Radial Dig I Comparison (Digit 1 - 10cm) Median ? 2.8 <2.9 5.9 Median Radial 0.5 Radial ? 2.3 <2.8 35.1 EMG ?Side Muscle Nerve Root Ins Act Fibs Psw Amp Dur Poly Recrt Int Pat Comment Right 1stDorInt Ulnar C8-T1 Nml Nml Nml Nml Nml 0 Nml Complete Right FlexCarRad Median C6-7 Nml Nml Nml Nml Nml 0 Nml Complete Right Biceps Musculocut C5-6 Nml Nml Nml Nml Nml 0 Nml Complete Right Triceps Radial C6-7-8 Nml Nml Nml Nml Nml 0 Nml Complete Right Deltoid Axillary C5-6 Nml Nml Nml Nml Nml 0 Nml Complete FINDINGS: Interlatency difference between right median radial sensory nerves is 0.5. Otherwise, all motor and sensory nerves tested showed normal latencies, amplitudes and conduction velocities. Concentric needle EMG was performed in selected muscles of the right upper extremity. Study did not reveal signs of electric abnormalities as shown in the table above. IMPRESSION: 1. At the most, there is borderline interlatency difference between right median and radial sensory nerves, perhaps a borderline, very mild Carpal Tunnel Syndrome. 2. There is no electrodiagnostic evidence for ulnar neuropathy, brachial plexopathy, or cervical radiculopathy. Thank you for your kind referral. Kirsten Howard MD, EDIN Board Certified, [place] [employer] and Rehabilitation (ABPMR) Board Certified, [place] Board of Electrodiagnostic Medicine (ABEM) CODIN [id number] x 1 extremity MTDD
== END 2025-03-25 14:25 | disposition home or self-care (01) ==
LOC: HO.NEURO 14:24
PROVIDERS: PCP Nurse Practitioner Family; Visit Provider Orthopaedic Surgery
DX: R20.0 Anesthesia of skin (principal); R20.2 Paresthesia of skin; M25.531 Pain in right wrist; M25.532 Pain in left wrist; M79.641 Pain in right hand; M79.642 Pain in left hand
CPT/HCPCS: 95886; 95909

== ENCOUNTER → 2025-03-25 14:33 | Outpatient (BNV) | payer OTHER, SELFPAY | PROVIDERS: PCP Nurse Practitioner Family; Visit Provider Physical Medicine & Rehabilitation | DX: R20.0 Anesthesia of skin (principal) | CPT/HCPCS: 95886; 95909 ==

== ENCOUNTER 2025-04-20 09:24 | Outpatient (AMB) | payer OTHER, SELFPAY ==
--- NOTE | 2025-04-20 09:27 | A.OFFVIS_ITS ---
Vital Signs 04/20/25 09:28 Height 5 ft 3 in Weight 201 lb BMI 35.6 Intake Visit Reasons: OV- EMG Review/ right wrist Intake Note: Audrey is a 49 year old right hand dominant female who presents today for Follow Up of her Right Hand Numbness & EMG Review. She was last evaluated by Dr. Bueno on 01/05/25. At that time, her symptoms were intermittent, primarily at night. Today, she reports her symptoms remain the same. History to Right Wrist Tendinitis IMPRESSION 03/25/25: 1. At the most, there is borderline interlatency difference between right median and radial sensory nerves, perhaps a borderline, very mild Carpal Tunnel Syndrome. 2. There is no electrodiagnostic evidence for ulnar neuropathy, brachial plexopathy, or cervical radiculopathy. Ground Water Contractor Required: Yes Ground Water Contractor Services: Ground Water Contractor Present Ground Water Contractor Name: ELIGIO العراقي Allergies Penicillins (PCN) Adverse Reaction (Verified 04/20/25 09:31) Rash HPI HPI OV- EMG Review/ right wrist: Details: Audrey is a 49 year old right hand dominant female who presents today for Follow Up of her Right Hand Numbness & EMG Review. She was last evaluated by Dr. Bueno on 01/05/25. At that time, her symptoms were intermittent, primarily at night. Today, she reports her symptoms remain the same. History to Right Wrist Tendinitis. Patient reports that she does have a Velcro wrist brace that she wears, however she wears this during the day and not at night. IMPRESSION 03/25/25: 1. At the most, there is borderline interlatency difference between right median and radial sensory nerves, perhaps a borderline, very mild Carpal Tunnel Syndrome. 2. There is no electrodiagnostic evidence for ulnar neuropathy, brachial plexopathy, or cervical radiculopathy [facility] Medical History (Updated 04/20/25 @ 15:28 by MUNIR Arroyo) GERD (gastroesophageal reflux disease) Obesity (BMI 30-39.9) Right elbow pain Left knee pain Lateral epicondylitis, right elbow PMB (postmenopausal bleeding) Morbid obesity with BMI of 40.0-44.9, adult Surgical History Hx of bladder endoscopy Hx of colonoscopy (~02/2023) H/O breast surgery History of cholecystectomy Family History Mother Fibromyalgia Hypothyroidism Father Prostate cancer Hypertension Hypothyroidism Paternal Grandmother History of breast cancer Social History (Updated 01/05/25 @ 10:04 by Milly Tamez CCM) Housing: House Patient Tobacco Use Status: Never used Tobacco e-Cigarette/Vaping Use: Never Used service: No Current occupational status: unemployed Current occupation: right hand Cognitive needs: No Hearing needs: No Vision needs: No Review of Systems Const All systems reviewed & are unremarkable except as noted in HPI and below Physical Exam Vital Signs: BMI result Body Mass Index 35.6 Const General: cooperative, healthy appearing and no acute distress Orientation/consciousness: patient oriented x3 HEENT Head: Yes normocephalic and Yes atraumatic Eyes EOM: EOMs intact bilaterally Resp Effort & Inspection: normal respiratory effort and able to speak in complete sentences Cardio Jugular venous distension: no JVD Skin General skin exam: turgor normal Rashes: no rashes Neuro General: patient oriented x3 Extrem Other: Evaluation of Right Upper Extremity: The patient is alert, oriented, and in no acute distress Neuro: Median, Ulnar, Radial nerves motor and sensory intact and sensation is normal to the tips of all digits Vascular: Cap refill brisk ROM: She can make a fist and extend all her digits Full & symmetrical wrist ROM DRUJ stable Skin: No lacerations or abrasions. General: No Ecchymosis. No swelling No Erythema or evidence of infection. No tenderness to palpation anywhere in the right wrist Psych Appearance: grossly normal Affect: normal affect Attitude: cooperative Assessment & Plan Assessment & Plan (1) Right carpal tunnel syndrome: Code(s): G56.01 - Carpal tunnel syndrome, right upper limb Category: Medical Plan 1. Right carpal tunnel syndrome Symptoms intermittent, not daily, worse at night Patient is educated about this condition Patient is educated about the typical treatment and recovery course At this time, patient is informed that the preferred treatment for carpal tunnel syndrome is surgical intervention, however as the patient's symptoms are truly intermittent and not daily, we can hold off on surgical intervention at that has with the patient would prefer, the patient would prefer holding off on surgical intervention at this time Patient is advised that when her symptoms are intermittent, but almost daily or daily, she should call us for re-evaluation and discussion of further treatment options Patient understands this and is amenable to this plan Follow-up as needed Coding Level of Care Code Est Pt Level 3 (01383) Diagnoses Right carpal tunnel syndrome G56.01
[2025-04-20 09:28] VITALS: BMI 35.6
== END 2025-04-20 09:49 | disposition home or self-care (01) ==
LOC: HO.HOS 09:25
PROVIDERS: PCP Nurse Practitioner Family
DX: G56.01 Carpal tunnel syndrome, right upper limb (principal)
CPT/HCPCS: 99213

== ENCOUNTER → 2025-04-20 09:24 | Outpatient (BNVA) | payer OTHER, SELFPAY | PROVIDERS: PCP Nurse Practitioner Family | DX: G56.01 Carpal tunnel syndrome, right upper limb (principal) | CPT/HCPCS: 99212 ==

== ENCOUNTER 2025-04-21 08:19 | Outpatient (REF) | payer OTHER, SELFPAY ==
[2025-04-21 12:29] LABS: Cholesterol 248 mg/dL (<200); HDL Cholesterol 47 mg/dL (>40); Triglycerides 103 mg/dL (<150)
== END 2025-04-21 08:20 | disposition home or self-care (01) ==
LOC: HO.WFDLDS 08:19
PROVIDERS: PCP Nurse Practitioner Family; Visit Provider Nurse Practitioner Family
DX: Z23 Encounter for immunization (principal); E78.2 Mixed hyperlipidemia; R79.89 Other specified abnormal findings of blood chemistry; J45.20 Mild intermittent asthma, uncomplicated; E66.9 Obesity, unspecified; K21.9 Gastro-esophageal reflux disease without esophagitis; Z68.32 Body mass index [BMI] 32.0-32.9, adult
CPT/HCPCS: 36415; 80061; 82306; 90471; 90656; 96127; 96160; 99212

== ENCOUNTER 2025-04-21 08:19 | Outpatient (AMB) | payer OTHER, SELFPAY ==
--- NOTE | 2025-04-21 08:25 | A.OFFPC_ITS ---
Vital Signs 04/21/25 08:35 Height 5 ft 3 in Weight 181 lb 8 oz BMI 32.1 BP 110/68 Blood Pressure Location Lt brachial Position Sitting Respiration 15 Pulse 72 Pulse Source Pulse Oximeter Temp 97.3 F Temp Source Temporal Artery Scan Pulse Oximetry (%) 95 Oxygen Delivery Method Room Air Intake Visit Reasons: 6 mo 30 min HLD labs 1 week before Intake Note: Audrey presents in the office today for a 6 month follow up to her cholesterol. Ring Attacher Required: Yes Ring Attacher Language: Braid Pattern Setter Name: Rachel [id number] Information Interpreted: non-clinical & clinical Fibreglass Laminator: Not Required per policy Is last menstrual period known: Yes Last menstrual period: 03/27/25 Post menopausal: No Patient : No Allergies Penicillins (PCN) Adverse Reaction (Verified 04/21/25 08:40) Rash Medication List - Last Reconciled 04/21/25 by Carissa Harper, CURBSTONE SETTER- atorvastatin 80 mg PO BEDTIME cholecalciferol (vitamin D3) 100 mcg (2 x 50 mcg (2,000 unit)) PO DAILY 90 days pantoprazole 40 mg PO DAILY Tobacco use date assessed: 04/21/25 Dental Screening Dental Screen Date: 04/21/25 Did you have a dental visit in the last 12 months?: Yes Did you have a dental problem in the last 6 months where you did not have access to dental care?: No Was dental information given to patient?: Patient has dentist HPI HPI Comments History of Present Illness Details 49-year-old Rwandan speaking female with obesity, hepatic steatosis, right renal cyst, vitamin-D deficiency, proliferative endometrium with bx q 6 months, hyperlipidemia, asthma, GERD, venous insuff BLE, lipoma RLE popliteal region Status post breast surgery, cholecystectomy Fhx: no changes Social: no changes Specialists [facility] Derm first appt Feb 2025 at [facility] Health maintenance Mammo 01/2024 Colon 2022, Repeat 10 years Tdap 2022, Flu 04/21/25 Pap 04/11/23 Ring Attacher: [id number] History of Present Illness The patient is a 49 year old female presenting for follow-up on hyperlipidemia. Hyperlipidemia: - The patient is on atorvastatin 80 mg d aily for hyperlipidemia. - Due for repeat labs Obesity: - The patient has a history of obesity w ith a current BMI of 32.2. - She was involved with the [facility] at [facility]. - The patient was offered medication or bariatric surgery but has chosen to manage her weight by herself. - She reports having lost 20 pounds thro ugh diet and exercise. - Her diet includes breakfast at 10:00 A M, typically eggs, and meals with low carbohydrates and higher protein in the afternoon. - She also reports going to the gym. Vitamin D Deficiency: - The patient has a history of vitamin D deficiency and takes a supplement. - Her vitamin D level had been low previ ously. - Due for labs Gastroesophageal reflux disease: - The patient has chronic gastroesophage al reflux disease (GERD), for which she takes pantoprazole. - She reports that her symptoms are impr oving but are still present. Ear Congestion bilat: - The patient reports a feeling of her e ars being congested for about two months. - She feels she needs to unlock them f requently. Asthma: well controlled. Due for flu shot. Review of Systems - Ears: Reports feeling of congested ear s for the last two months. - Respiratory: Denies any breathing issu es. - Gastrointestinal: Reports improving, b ut persistent, acid reflux. - Constitutional: Reports feeling fine s jelly starting diet and exercise. Physical Exam - Vitals: BMI is 32.2. - General: Patient appears well. - HEENT: PERRLA, Otoscopic exam is chana l, without evidence of abnormality. - Cards: RRR - Respiratory: Lungs are clear to auscul tation bilaterally. - Mood and affect appropriate Results Pending Medical Decision Making The patient is a 49-year-old female here for a follow-up visit for hyperlipidemia. She has made significant lifestyle changes, including diet modification and regular exercise, resulting in a 20-25 pound weight loss. Given her weight loss and exercise, it is hoped that her cholesterol levels will have improved, potentially allowing for a reduction in her atorvastatin dosage from 80 mg. Repeat labs for cholesterol and vitamin D are ordered for today. She reports a two-month history of ear congestion. Physical exam of the ears was normal. The symptoms are likely due to ETD, for which a nasal spray has been prescribed to alleviate the feeling of fullness in her ears. The patient agreed to receive the annual influenza vaccine today. She will follow up in six months for her physical exam, or sooner if needed. Plan 1. Hyperlipidemia - Continue atorvastatin 80 mg daily. - Repeat labs today to check cholesterol levels. - Dose may be reduced if lab results massiel w improvement, secondary to weight loss and exercise. 2. Obesity - The patient is encouraged to continue her current diet and exercise regimen, which has resulted in a 20 pound weight loss. - She will continue to manage her weight independently without medication or bariatric surgery. 3. Vitamin D Deficiency - Continue vitamin D supplement. - Repeat vitamin D level labs today to a [facility] for improvement. 4. Gastroesophageal Reflux Disease - Continue taking pantoprazole. 5. Ear Congestion, Bilat: - A nasal spray was prescribed, flonase - The patient is instructed to use one s pray in each nostril in the morning and before bed until symptoms resolve. 6. Influenza Vaccination /Asthma - The patient consented to and will rece brittnee the annual flu shot today. - asthma controlled Patient Instructions - Go to the lab today to get your blood work done for cholesterol and vitamin D levels. - Continue taking your atorvastatin 80 m g every day. - Continue taking your vitamin D supplem ent. - Continue taking your pantoprazole for acid reflux. - You will receive your annual flu shot today. - Use the prescribed nasal spray, one sp ray in each nostril in the morning and before bed, until your ears feel normal again. - We will call you with your lab results . - Keep up the great work with your diet and exercise. - Your next appointment will be in [facility] for your physical. Please call sooner if you need anything. Consent The patient verbally consented to receiving the annual influenza vaccine during the visit today. Patient was informed and verbally consented to the use of an ambient scribe for clinic note documentation during this visit. Total time spent caring for the patient today was 30 minutes. This includes time spent before the visit reviewing the chart, time spent during the visit, and time spent after the visit on documentation, reviewing laboratory results, diagnostic imaging, medications, performing a medically necessary evaluation, counseling on diagnoses, care coordination, ordering appropriate tests, ordering appropriate medications, review of tests performed by other providers, reporting test results with the patient, communication with other healthcare providers. [facility] Medical History (Updated 04/21/25 @ 08:46 by Carissa Harper, [facility]) GERD (gastroesophageal reflux disease) Lateral epicondylitis, right elbow Left knee pain Morbid obesity with BMI of 40.0-44.9, adult Obesity (BMI 30-39.9) PMB (postmenopausal bleeding) Right elbow pain Surgical History H/O breast surgery History of cholecystectomy Hx of bladder endoscopy Hx of colonoscopy (~02/2023) Family History (Updated 04/21/25 @ 08:34 by Meghana Carreon [facility]) Mother Fibromyalgia Hypothyroidism FH: mental illness Depression Father Prostate cancer Hypertension Hypothyroidism Paternal Grandmother History of breast cancer Sister FH: mental illness Depression Social History (Updated 04/21/25 @ 08:34 by Meghana Carreon [facility]) Housing: House Alcohol intake: never Patient Tobacco Use Status: Never used Tobacco e-Cigarette/Vaping Use: Never Used Second Hand Smoke Exposure: Yes Use of substances other than those prescribed or required for medical reasons: No Patient : No service: No Current occupational status: unemployed Current occupation: right hand Cognitive needs: No Hearing needs: No Vision needs: No Female Reproductive History Menstrual Date of last menstrual period: 03/27/25 Questionnaire PHQ-9 Over the last 2 weeks, how often have you been bothered by any of the following problems? 1. Little interest or pleasure in doing things: not at all 2. Feeling down, depressed, or hopeless: not at all 3. Trouble falling or staying asleep, or sleeping too much: more than half the days 4. Feeling tired or having little energy: several days 5. Poor appetite or overeating: not at all 6. Feeling bad about yourself - or that you are a failure or have let yourself or your family down: not at all 7. Trouble concentrating on things, such as reading the newspaper or watching television: not at all 8. Moving or speaking so slowly that other people could have noticed. Or the opposite - being so fidgety or restless that you have been moving around a lot more than usual: not at all 9. Thoughts that you would be better off or of hurting yourself in some way: not at all Total score: 3 Depression Screening Interpretation: Negative Depression Screening Done: Yes [id number] - PHQ-9 Billing: Yes Source: Developed by Drs. Manuelito Penny Swain Kurt Kroenke and colleagues, with an educational kenji from [employer]. Thrive Questionnaire Date Thrive assessed: 10/19/24 I am a: Patient What is your living situation today?: I have a steady place to live Within the past 12 months, did the food you bought not last and you didn't have the money to get more?: Often true Within the past 12 months, did you worry whether your food would run out before you got money to buy more?: Never true Do you have trouble paying for medicines?: No Do you have trouble getting transportation to medical appointments?: No Do you have trouble paying your heating and electricity bill?: No Do you have trouble taking care of your child, family member or friend?: No Do you have trouble with day-to-day activities such as bathing, preparing meals, shopping, managing finances, etc.?: No Are you currently unemployed and looking for a job?: Yes Are you interested in more education?: Yes Please select the resources that you would like help with: Job search/training Currently or been in a relationship where the following occur: No concerns reported THRIVE Score: 1 RAMEZ-7 AMB Questionnaire RAMEZ-7 Date RAMEZ - 7 assessed: 10/19/24 Source: Developed by Drs. Manuelito Triplett, Penny Millan, Segundo Gomes and colleagues, with an educational kenji from [employer]. ACT Questionnaire In the past 4 weeks, how much of the time did your asthma keep you from getting as much done at work, school or at home?: None of the time During the past 4 weeks, how often have you had shortness of breath?: Not at all During the past 4 weeks, how often did your asthma symptoms wake you up at night or earlier than usual in the morning?: Not at all During the past 4 weeks, how often have you had to use your rescue inhaler or nebulizer medication?: Not at all How would you rate your asthma control during the past 4 weeks?: Well controlled ACT Interpretation: Negative Score: 24 Physical exam (Primary Care) Vital Signs: Last Vital Signs Temp 97.3 F 04/21/25 08:35 Pulse 72 04/21/25 08:35 Resp 15 04/21/25 08:35 BP 110/68 04/21/25 08:35 Pulse Ox 95 04/21/25 08:35 Oxygen Delivery Method Room Air 04/21/25 08:35 BMI result Body Mass Index 32.1 BMI Assessment/Plan discussion: High BMI High, discussed plan: lifestyle Tobacco/Smoking Status: Tobacco use Status Tobacco use date assessed 04/21/25 04/21/25 08:37 Patient Tobacco Use Status Never used Tobacco 04/21/25 08:34 e-Cigarette/Vaping Use Never Used 04/21/25 08:34 Depression Screening Interpretation: Negative Thrive Assessment: Date of Thrive Assessment Date Thrive assessed 10/19/24 04/21/25 08:26 Currently or been in a relationship where the following occur: No concerns reported Coding Level of Care Code Est Pt Level 4 (77271) Complex visit Add On G2211 Diagnoses Low vitamin D level R79.89 Mixed hyperlipidemia E78.2 Hyperlipidemia type: mixed hyperlipidemia Obesity (BMI 30-39.9) E66.9 Gastroesophageal reflux disease without esophagitis K21.9 Esophagitis presence: without esophagitis Mild intermittent asthma in adult without complication J45.20 Influenza vaccination administered at current visit Z23 Additional Codes PHQ-9 - 27391 - PHQ-9 Billing: Yes ([id number]) Asthma Control Questionnaire - ACT Interpretation: Negative ([id number]) Assessment & Plan Assessment & Plan (1) Low vitamin D level: Comment: Currently maintained on a vitamin-D supplement. Code(s): R79.89 - Other specified abnormal findings of blood chemistry Category: Medical (2) Hyperlipidemia: Comment: 09/2023 start atorvastatin 40mg QD, repeat labs currently on 80mg Code(s): E78.5 - Hyperlipidemia, unspecified Category: Medical Qualifiers: Hyperlipidemia type: mixed hyperlipidemia Qualified Code(s): E78.2 - Mixed hyperlipidemia (3) Obesity (BMI 30-39.9): Code(s): E66.9 - Obesity, unspecified Category: Medical (4) GERD (gastroesophageal reflux disease): Code(s): K21.9 - Gastro-esophageal reflux disease without esophagitis Category: Medical Qualifiers: Esophagitis presence: without esophagitis Qualified Code(s): K21.9 - Gastro-esophageal reflux disease without esophagitis (5) Mild intermittent asthma in adult without complication: Comment: Not currently on any medications. Well controlled. Code(s): J45.20 - Mild intermittent asthma, uncomplicated Category: Medical (6) Influenza vaccination administered at current visit: Onset Date: ~04/21/25 Code(s): Z23 - Encounter for immunization Category: Medical Plan . Orders: Orders Hemoglobin A1c 6 Months E78.2 - Mixed hyperlipidemia, R79.89 - Other specified abnormal findings of blood chemistry, Z00.00 - Encounter for general adult medical examination without abnormal findings TSH reflex Free T4 6 Months E78.2 - Mixed hyperlipidemia, R79.89 - Other specified abnormal findings of blood chemistry, Z00.00 - Encounter for general adult medical examination without abnormal findings Vitamin B12 and Folate 6 Months E78.2 - Mixed hyperlipidemia, R79.89 - Other specified abnormal findings of blood chemistry, Z00.00 - Encounter for general adult medical examination without abnormal findings Vitamin D 25-OH Total Today R79.89 - Other specified abnormal findings of blood chemistry Complete Blood Count no Diff 6 Months E78.2 - Mixed hyperlipidemia, R79.89 - Other specified abnormal findings of blood chemistry, Z00.00 - Encounter for general adult medical examination without abnormal findings Comprehensive Met. Panel 6 Months E78.2 - Mixed hyperlipidemia, R79.89 - Other specified abnormal findings of blood chemistry, Z00.00 - Encounter for general adult medical examination without abnormal findings Lipid Panel 6 Months E78.2 - Mixed hyperlipidemia, R79.89 - Other specified abnormal findings of blood chemistry, Z00.00 - Encounter for general adult medical examination without abnormal findings Microalbumin, Random (w Creat) 6 Months E78.2 - Mixed hyperlipidemia, R79.89 - Other specified abnormal findings of blood chemistry, Z00.00 - Encounter for general adult medical examination without abnormal findings Vitamin D 25-OH Total 6 Months E78.2 - Mixed hyperlipidemia, R79.89 - Other specified abnormal findings of blood chemistry, Z00.00 - Encounter for general adult medical examination without abnormal findings Medications: New fluticasone propionate 50 mcg/actuation (Allergy Relief (fluticasone)) administer into each nostril 1 spray intranasal BID 16 grams 0RF
[2025-04-21 08:35] VITALS: BP 110/68; PULSE 72; RESP 15; TEMP 36.3; O2SAT 95; BMI 32.1
== END 2025-04-21 09:19 | disposition home or self-care (01) ==
LOC: HO.HMCFM 08:19
PROVIDERS: PCP Nurse Practitioner Family; Visit Provider Nurse Practitioner Family
DX: R79.89 Other specified abnormal findings of blood chemistry (principal); E78.2 Mixed hyperlipidemia; E66.9 Obesity, unspecified; Z68.32 Body mass index [BMI] 32.0-32.9, adult; K21.9 Gastro-esophageal reflux disease without esophagitis; J45.20 Mild intermittent asthma, uncomplicated; Z23 Encounter for immunization